=== PATIENT | male | born 1940 | race Caucasian/White ===

== ENCOUNTER 2018-06-23 22:20 | Inpatient (IN) | payer OTHER ==
[2018-06-23 22:59] LABS: Basophils % (A) 1 %; Eosinophils # (A) 0.2 k/uL (0-0.7); Eosinophils % (A) 4 %; HCT 38.6 % (39.0-53.0); Hypochromasia Moderate; Lymphocytes % (A) 20 %; MCH 33.8 pg (25.0-35.0); MCHC 31.1 g/dL (31.0-37.0); MCV 108.4 fL (80.0-100.0); Mean Platelet Volume 7.3; Monocytes # (A) 0.4 k/uL (0-1.0); Monocytes % (A) 7 %; Neutrophils # (A) 3.2 k/uL (1.3-7.7); Neutrophils % (A) 65 %; Platelet Count 178 k/uL (150-450); RBC 3.56 m/uL (4.30-5.90); RDW 15.7 % (11.5-15.5); WBC 4.9 k/uL (3.8-10.6)
[2018-06-23 23:07] LABS: INR 1.1 (<1.2); Prothrombin Time 11.2 sec (9.0-12.0)
[2018-06-23 23:14] LABS: Potassium 5.7 mmol/L (3.5-5.1)
[2018-06-23 23:17] LABS: Albumin 3.9 g/dL (3.5-5.0); Calcium 9.2 mg/dL (8.4-10.2); Macrocytosis Marked; Magnesium 1.7 mg/dL (1.6-2.3); Total Bilirubin 0.4 mg/dL (0.2-1.3); Total Protein 7.3 g/dL (6.3-8.2)
[2018-06-23] MEDS ORDERED: SODIUM CHLORIDE 0.9% 500 ML 500 ML IV ONE (23:18)
[2018-06-23] MEDS ORDERED: SODIUM POLYSTYRENE SULFONATE 15 GM/60 ML BOTTLE PO STA (23:19)
[2018-06-23 23:20] LABS: Creatine Kinase 40 U/L (55-170)
--- NOTE | 2018-06-23 23:24 | ED ---
General Adult HPI - General Chief complaint: Recheck/Abnormal Lab/Rx Stated complaint: Abn labs Time Seen by Provider: 06/23/18 22:38 Source: patient, RN notes reviewed, old records reviewed Mode of arrival: ambulatory Limitations: no limitations - History of Present Illness Initial comments: 77-year-old male presenting with abnormal outpatient lab. Patient was noted to have elevated potassium 6.0. Patient denies any complaints. No chest pain, no dyspnea, no abdominal pain, nausea vomiting diarrhea. No fever chills. No lower extremity edema. Patient has no known history of chronic kidney disease, not on potassium supplementation. Patient denies any change in urination. - Related Data Home Medications Medication Instructions Recorded Confirmed Amiodarone HCl [Pacerone] 200 mg PO DAILY 06/23/18 06/23/18 Aspirin EC [Ecotrin Low Dose] 81 mg PO DAILY 06/23/18 06/23/18 Atorvastatin [Lipitor] 80 mg PO HS 06/23/18 06/23/18 Metoprolol Succinate (ER) [Toprol 50 mg PO BID 06/23/18 06/23/18 Xl] Pantoprazole [Protonix] 40 mg PO DAILY 06/23/18 06/23/18 Tamsulosin HCl [Flomax] 0.4 mg PO DAILY 06/23/18 06/23/18 sitaGLIPtin [Januvia] 50 mg PO DAILY 06/23/18 06/23/18 Allergies Allergy/AdvReac Type Severity Reaction Status Date / Time Penicillins Allergy Swelling Verified 06/23/18 22:50 alprazolam [From Xanax] AdvReac Hallucinati Verified 06/23/18 22:50 ons meperidine [From Demerol] AdvReac Hallucinati Verified 06/23/18 22:50 ons Review of Systems ROS Statement: Those systems with pertinent positive or pertinent negative responses have been documented in the HPI. ROS Other: All systems not noted in ROS Statement are negative. Past Medical History Past Medical History: Coronary Artery Disease (CAD), Diabetes Mellitus, Hyperlipidemia, Hypertension, Prostate Disorder, Pulmonary Embolus (PE) History of Any Multi-Drug Resistant Organisms: None Reported Past Surgical History: Heart Catheterization With Stent Past Psychological History: No Psychological Hx Reported Smoking Status: Never smoker Past Alcohol Use History: None Reported Past Drug Use History: None Reported General Exam Limitations: no limitations General appearance: alert, in no apparent distress Head exam: Present: atraumatic, normocephalic Eye exam: Present: normal appearance, PERRL ENT exam: Present: normal exam Neck exam: Present: normal inspection. Absent: tenderness, meningismus Respiratory exam: Present: normal lung sounds bilaterally. Absent: respiratory distress, wheezes Cardiovascular Exam: Present: regular rate, irregular rhythm GI/Abdominal exam: Present: soft. Absent: distended Extremities exam: Present: normal inspection, normal capillary refill. Absent: calf tenderness Neurological exam: Present: alert, oriented X3 Psychiatric exam: Present: normal affect, normal mood Skin exam: Present: warm, dry, intact. Absent: cyanosis, diaphoretic Course Vital Signs 06/23/18 22:23 Temperature 98.4 F Pulse Rate 66 Respiratory 18 Rate Blood Pressure 207/82 O2 Sat by Pulse 95 Oximetry EKG Findings - EKG Comments: EKG Findings:: EKG: Sinus rhythm, rate of 72, significan PVC ectopy with fusion complex, ND interval 136, QRS duration 92, QTC 462, no ST segment changes Medical Decision Making - Medical Decision Making 77-year-old male presenting with hyperkalemia. Laboratory studies repeated, patient has potassium 5.7, creatinine 1.6 with no known baseline or history of chronic kidney disease. Laboratory studies are within normal limits. Patient does have significant ectopy on EKG. He will be kept in observation for telemetry, IV hydration, and treatment of hyperkalemia. He is given Kayexalate and calcium gluconate in the emergency department. Laboratory studies as well as kidney function will be rechecked in the morning. - Lab Data Result diagrams: 06/23/18 22:42 06/23/18 22:42 Lab Results 06/23/18 06/23/18 06/23/18 Range/Units 22:42 22:42 22:42 WBC 4.9 (3.8-10.6) k/uL RBC 3.56 L (4.30-5.90) m/uL Hgb 12.0 L (13.0-17.5) gm/dL Hct 38.6 L (39.0-53.0) % MCV 108.4 H (80.0-100.0) fL MCH 33.8 (25.0-35.0) pg MCHC 31.1 (31.0-37.0) g/dL RDW 15.7 H (11.5-15.5) % Plt Count 178 (150-450) k/uL Neutrophils % 65 % Lymphocytes % 20 % Monocytes % 7 % Eosinophils % 4 % Basophils % 1 % Neutrophils # 3.2 (1.3-7.7) k/uL Lymphocytes # 1.0 (1.0-4.8) k/uL Monocytes # 0.4 (0-1.0) k/uL Eosinophils # 0.2 (0-0.7) k/uL Basophils # 0.0 (0-0.2) k/uL Manual Slide Review Performed Hypochromasia Moderate Macrocytosis Marked PT (9.0-12.0) sec INR (<1.2) APTT (22.0-30.0) sec Sodium 139 (137-145) mmol/L Potassium 5.7 H (3.5-5.1) mmol/L Chloride 102 (98-107) mmol/L Carbon Dioxide 31 H (22-30) mmol/L Anion Gap 6 mmol/L BUN 15 (9-20) mg/dL Creatinine 1.60 H (0.66-1.25) mg/dL Est GFR (CKD-EPI)AfAm 47 (>60 ml/min/1.73 sqM) Est GFR (CKD-EPI)NonAf 41 (>60 ml/min/1.73 sqM) Glucose 186 H (74-99) mg/dL Calcium 9.2 (8.4-10.2) mg/dL Magnesium 1.7 (1.6-2.3) mg/dL Total Bilirubin 0.4 (0.2-1.3) mg/dL AST 20 (17-59) U/L ALT 23 (21-72) U/L Alkaline Phosphatase 92 (38-126) U/L Total Creatine Kinase 40 L (55-170) U/L CK-MB (CK-2) 0.9 (0.0-2.4) ng/mL CK-MB (CK-2) Rel Index 2.3 Troponin I <0.012 (0.000-0.034) ng/mL Total Protein 7.3 (6.3-8.2) g/dL Albumin 3.9 (3.5-5.0) g/dL 06/23/18 Range/Units 22:42 WBC (3.8-10.6) k/uL RBC (4.30-5.90) m/uL Hgb (13.0-17.5) gm/dL Hct (39.0-53.0) % MCV (80.0-100.0) fL MCH (25.0-35.0) pg MCHC (31.0-37.0) g/dL RDW (11.5-15.5) % Plt Count (150-450) k/uL Neutrophils % % Lymphocytes % % Monocytes % % Eosinophils % % Basophils % % Neutrophils # (1.3-7.7) k/uL Lymphocytes # (1.0-4.8) k/uL Monocytes # (0-1.0) k/uL Eosinophils # (0-0.7) k/uL Basophils # (0-0.2) k/uL Manual Slide Review Hypochromasia Macrocytosis PT 11.2 (9.0-12.0) sec INR 1.1 (<1.2) APTT 29.0 (22.0-30.0) sec Sodium (137-145) mmol/L Potassium (3.5-5.1) mmol/L Chloride (98-107) mmol/L Carbon Dioxide (22-30) mmol/L Anion Gap mmol/L BUN (9-20) mg/dL Creatinine (0.66-1.25) mg/dL Est GFR (CKD-EPI)AfAm (>60 ml/min/1.73 sqM) Est GFR (CKD-EPI)NonAf (>60 ml/min/1.73 sqM) Glucose (74-99) mg/dL Calcium (8.4-10.2) mg/dL Magnesium (1.6-2.3) mg/dL Total Bilirubin (0.2-1.3) mg/dL AST (17-59) U/L ALT (21-72) U/L Alkaline Phosphatase (38-126) U/L Total Creatine Kinase (55-170) U/L CK-MB (CK-2) (0.0-2.4) ng/mL CK-MB (CK-2) Rel Index Troponin I (0.000-0.034) ng/mL Total Protein (6.3-8.2) g/dL Albumin (3.5-5.0) g/dL Disposition Clinical Impression: Hyperkalemia, Acute kidney injury Disposition: ADMITTED IP TO THIS [facility] Condition: Stable Is patient prescribed a controlled substance at d/c from ED?: No Referrals: Casey Brown DO [Primary Care Provider] - 1-2 days Decision to Admit Reason: Admit from EC Decision Date: 06/24/18 Decision Time: 00:05
[2018-06-23] MEDS ORDERED: CALCIUM GLUCONATE 1 GM in SODIUM CHLORIDE 0.9% 100 ML IVPB ONE (23:30)
[2018-06-23 23:33] LABS: Creatine Kinase MB 0.9 ng/mL (0.0-2.4); Troponin I <0.012 ng/mL (0.000-0.034)
[2018-06-23] MEDS: SODIUM CHLORIDE 0.9% 1,000 ML IV SCH (23:43)
[2018-06-23] MEDS ORDERED: ACETAMINOPHEN TAB 325 MG TAB PO PRN (23:59)
[2018-06-23] MEDS ORDERED: NALOXONE 0.4 MG/ML 1 ML VIAL IV PRN (23:59)
[2018-06-24 02:38] VITALS: BMI 28.1
[2018-06-24 06:42] LABS: Glucose,Whole Blood 123 mg/dL (75-99)
[2018-06-24] MEDS: RIVAROXABAN 15 MG TAB PO SCH ×2 (07:56→17:16)
[2018-06-24] MEDS: AMIODARONE 200 MG TAB PO SCH (07:56)
[2018-06-24] MEDS: METOPROLOL SUCCINATE (ER) 50 MG TAB.ER.24H PO SCH ×2 (07:56→21:30)
[2018-06-24 11:10] LABS: Basophils % (A) 0 %; Eosinophils # (A) 0.2 k/uL (0-0.7); Eosinophils % (A) 4 %; HCT 37.4 % (39.0-53.0); HGB 11.5 gm/dL (13.0-17.5); Hypochromasia Marked; Lymphocytes # (A) 0.9 k/uL (1.0-4.8); Lymphocytes % (A) 20 %; MCH 33.7 pg (25.0-35.0); MCHC 30.7 g/dL (31.0-37.0); MCV 109.7 fL (80.0-100.0); Macrocytosis Marked; Mean Platelet Volume 6.7; Monocytes # (A) 0.3 k/uL (0-1.0); Monocytes % (A) 7 %; Neutrophils # (A) 2.8 k/uL (1.3-7.7); Neutrophils % (A) 65 %; Platelet Count 144 k/uL (150-450); RBC 3.41 m/uL (4.30-5.90); RDW 15.8 % (11.5-15.5); WBC 4.3 k/uL (3.8-10.6)
[2018-06-24 11:18] LABS: Calcium 8.8 mg/dL (8.4-10.2)
[2018-06-24 11:45] LABS: Potassium 6.2 mmol/L (3.5-5.1)
[2018-06-24 11:50] LABS: Glucose,Whole Blood 146 mg/dL (75-99)
[2018-06-24] MEDS ORDERED: SODIUM POLYSTYRENE SULFONATE 15 GM/60 ML BOTTLE PO STA (12:24)
[2018-06-24] MEDS ORDERED: SODIUM BICARB 8.4% 50 ML VIAL (1 MEQ/ML) IV STA (12:26)
[2018-06-24] MEDS ORDERED: CALCIUM GLUCONATE 1 GM in SODIUM CHLORIDE 0.9% 100 ML IVPB ONE (12:27)
[2018-06-24] MEDS ORDERED: INSULIN REGULAR 100 UNIT/ML VIAL IV ONE (12:28)
[2018-06-24] MEDS ORDERED: ALBUTEROL NEBULIZED 2.5 MG/3 ML INHALATION STA (12:29)
[2018-06-24] MEDS ORDERED: DEXTROSE 50%-WATER 50 ML SYRINGE IVP STA (12:31)
[2018-06-24 13:26] LABS: Hemoglobin A1C 7.4 % (4.0-6.0)
--- NOTE | 2018-06-24 13:43 | P.HPIM ---
History of Present Illness This is a pleasant 77 years old male with past medical history of coronary artery disease, status post cardiac cath, diabetes mellitus, hyperlipidemia, hypertension, pulmonary embolism on xarelto. He was here for abnormal lab with high potassium, patient went to the [facility] to take his prescription because is cheaper for him, they checked a routine labs for him and benignly Called about high potassium and ask him to come to emergency room. And at presentation his potassium was 5.7, and change. From this morning was 6.2. On admission also his creatinine 1.6 and the rest morning is 1.59. Sugars looks stable. Liver enzymes are unremarkable CBC unremarkable, sodium within normal limits. EKG showing sinus rhythm with PVCs at a rate of 72 BPM. QTC is 464 . I called the office and Dr. Brown his pcp was not available and attempt his nurse practitioner who told me in May his creatinine was 1.2, no documented kidney disease by his PCP office Patient denies chest pain, no dyspnea, no palpitation or dizziness, no syncope, no change in urine or bowel habits. No urinary difficulties or hesitancy or dysuria. No urinary urgency. No history of kidney disease. No fever at Emergency room patient received IV fluids, 1 L. And 30 g of Kayexalate, also patient was started on 75 mL/h of normal saline. Review of Systems CONSTITUTIONAL: No fever, no malaise, no fatigue. HEENT: No recent visual problems or hearing problems. Denied any sore throat. CARDIOVASCULAR: No orthopnea, PND, no palpitations, no syncope. PULMONARY: No shortness of breath, no cough, no hemoptysis. GASTROINTESTINAL: No diarrhea, no nausea, no vomiting, no abdominal pain. Normoactive bowel sounds. NEUROLOGICAL: No headaches, no weakness, no numbness. HEMATOLOGICAL: Denies any bleeding or petechiae. GENITOURINARY: Denies any burning micturition, frequency, or urgency. MUSCULOSKELETAL/RHEUMATOLOGICAL: Denies any joint pain, swelling, or any muscle pain. ENDOCRINE: Denies any polyuria or polydipsia. Past Medical History Past Medical History: Coronary Artery Disease (CAD), Diabetes Mellitus, Hyperlipidemia, Hypertension, Prostate Disorder, Pulmonary Embolus (PE) History of Any Multi-Drug Resistant Organisms: None Reported Past Surgical History: Heart Catheterization With Stent Past Anesthesia/Blood Transfusion Reactions: No Reported Reaction Date of Last Stent Placement:: 05/05/18 Past Psychological History: No Psychological Hx Reported Smoking Status: Never smoker Past Alcohol Use History: None Reported Past Drug Use History: None Reported - Past Family History Mother Family Medical History: No Reported History Father Family Medical History: No Reported History Medications and Allergies Home Medications Medication Instructions Recorded Confirmed Type Amiodarone HCl [Pacerone] 200 mg PO DAILY 06/23/18 06/23/18 History Aspirin EC [Ecotrin Low Dose] 81 mg PO DAILY 06/23/18 06/23/18 History Atorvastatin [Lipitor] 80 mg PO HS 06/23/18 06/23/18 History Metoprolol Succinate (ER) [Toprol 50 mg PO BID 06/23/18 06/23/18 History Xl] Pantoprazole [Protonix] 40 mg PO DAILY 06/23/18 06/23/18 History Tamsulosin HCl [Flomax] 0.4 mg PO DAILY 06/23/18 06/23/18 History sitaGLIPtin [Januvia] 50 mg PO DAILY 06/23/18 06/23/18 History Allergies Allergy/AdvReac Type Severity Reaction Status Date / Time Penicillins Allergy Swelling Verified 06/23/18 22:50 alprazolam [From Xanax] AdvReac Hallucinati Verified 06/23/18 22:50 ons meperidine [From Demerol] AdvReac Hallucinati Verified 06/23/18 22:50 ons Physical Exam Vitals: Vital Signs Temp Pulse Pulse Resp BP BP BP 06/24/18 11:58 60 18 06/24/18 11:32 97.5 F L 60 18 154/78 06/24/18 08:00 57 L 18 06/24/18 07:42 06/24/18 07:05 97.8 F 57 L 18 142/76 06/24/18 03:41 98.2 F 54 L 18 120/62 06/24/18 02:00 63 18 06/24/18 01:50 97.7 F 59 L 18 176/79 06/24/18 01:36 62 20 155/76 06/24/18 00:35 67 20 150/82 06/24/18 00:32 18 06/23/18 23:28 98.0 F 77 16 172/92 06/23/18 22:23 98.4 F 66 18 207/82 Pulse Ox 06/24/18 11:58 06/24/18 11:32 95 06/24/18 08:00 06/24/18 07:42 96 06/24/18 07:05 92 L 06/24/18 03:41 96 06/24/18 02:00 06/24/18 01:50 93 L 06/24/18 01:36 95 06/24/18 00:35 93 L 06/24/18 00:32 06/23/18 23:28 97 06/23/18 22:23 95 Intake and Output 06/23/18 06/24/18 06/24/18 22:59 06:59 14:59 Intake Total 440 Output Total 2 Balance -2 440 Intake: Oral 440 Output: Urine 1 Stool 1 Other: Voiding Method Toilet Toilet Weight 83.96 kg GENERAL: The patient is alert and oriented x3, not in any acute distress. Well developed, well nourished. HEENT: Pupils are round and equally reacting to light. EOMI. No scleral icterus. No conjunctival pallor. Normocephalic, atraumatic. No pharyngeal erythema. No thyromegaly. CARDIOVASCULAR: S1 and S2 present. No murmurs, rubs, or gallops. PULMONARY: Chest is clear to auscultation, no wheezing or crackles. ABDOMEN: Soft, nontender, nondistended, normoactive bowel sounds. No palpable organomegaly. MUSCULOSKELETAL: No joint swelling or deformity. EXTREMITIES: No cyanosis, clubbing, or pedal edema. NEUROLOGICAL: Gross neurological examination did not reveal any focal deficits. SKIN: No rashes. Results CBC & Chem 7: 06/24/18 10:50 06/24/18 10:50 Labs: Abnormal Lab Results - Last 24 Hours (Table) 06/23/18 06/23/18 06/23/18 Range/Units 22:42 22:42 22:42 RBC 3.56 L (4.30-5.90) m/uL Hgb 12.0 L (13.0-17.5) gm/dL Hct 38.6 L (39.0-53.0) % MCV 108.4 H (80.0-100.0) fL MCHC (31.0-37.0) g/dL RDW 15.7 H (11.5-15.5) % Plt Count (150-450) k/uL Lymphocytes # (1.0-4.8) k/uL Potassium 5.7 H (3.5-5.1) mmol/L Carbon Dioxide 31 H (22-30) mmol/L Creatinine 1.60 H (0.66-1.25) mg/dL Glucose 186 H (74-99) mg/dL POC Glucose (mg/dL) (75-99) mg/dL Total Creatine Kinase 40 L (55-170) U/L 06/24/18 06/24/18 06/24/18 Range/Units 06:40 10:50 10:50 RBC 3.41 L (4.30-5.90) m/uL Hgb 11.5 L (13.0-17.5) gm/dL Hct 37.4 L (39.0-53.0) % MCV 109.7 H (80.0-100.0) fL MCHC 30.7 L (31.0-37.0) g/dL RDW 15.8 H (11.5-15.5) % Plt Count 144 L (150-450) k/uL Lymphocytes # 0.9 L (1.0-4.8) k/uL Potassium 6.2 H* (3.5-5.1) mmol/L Carbon Dioxide 34 H (22-30) mmol/L Creatinine 1.59 H (0.66-1.25) mg/dL Glucose 169 H (74-99) mg/dL POC Glucose (mg/dL) 123 H (75-99) mg/dL Total Creatine Kinase (55-170) U/L 06/24/18 Range/Units 11:47 RBC (4.30-5.90) m/uL Hgb (13.0-17.5) gm/dL Hct (39.0-53.0) % MCV (80.0-100.0) fL MCHC (31.0-37.0) g/dL RDW (11.5-15.5) % Plt Count (150-450) k/uL Lymphocytes # (1.0-4.8) k/uL Potassium (3.5-5.1) mmol/L Carbon Dioxide (22-30) mmol/L Creatinine (0.66-1.25) mg/dL Glucose (74-99) mg/dL POC Glucose (mg/dL) 146 H (75-99) mg/dL Total Creatine Kinase (55-170) U/L Thrombosis Risk Factor Assmnt - Choose All That Apply Other Risk Factors: No Each Risk Factor Represents 3 Points: Age 75 years or older Other congenital or acquired thrombophilia - If yes, enter type in comment: No Thrombosis Risk Factor Assessment Total Risk Factor Score: 3 Thrombosis Risk Factor Assessment Level: Moderate Risk Assessment and Plan Assessment: Acute hyperkalemia Acute kidney injury with creatinine 1.6, compared to baseline 1.2 History of PE, on anticoagulation Hyperlipidemia Plan: This is a pleasant 77 years old male who presents because of acute kidney injury and hyperkalemia, continue with IV fluids, give Kayexalate. Check potassium and we'll check for retroperitoneal ultrasound. Labs and medication were reviewed.. Continue same treatment. Continue with symptomatic treatment. Resume home medication. Monitor lytes and vitals. DVT and GI prophylaxis. Further recommendations of the clinical course of the patient DVT prophylaxis: xarelto GI Prophylaxis: Pepcid
[2018-06-24] MEDS: SODIUM CHLORIDE 0.9% 1,000 ML IV SCH (14:07)
--- NOTE | 2018-06-24 14:42 | US ---
EXAMINATION TYPE: US kidneys/renal and bladder DATE OF EXAM: 06/24/2018 COMPARISON: NONE CLINICAL HISTORY: acute renal injury. abn labs, no pain EXAM MEASUREMENTS: Right Kidney: 11.1 x 6.1 x 6.1 cm Left Kidney: 11.3 x 4.9 x 5.0 cm Right Kidney: Multiple cystic appearing lesions seen with largest measured. Lower= 7.5 x 7.2 x 6.5 cm . Lower medial - 4.6 x 4.3 x 3.5 cm. Lower echogenic focus in lower pole with slight shadow - 0.6 c m. Left Kidney: Multiple cystic appearing lesions seen with largest measured. Upper pole = 5.6 x 5.8 x 5 .8 cm. Bladder: wnl Right jet seen IMPRESSION: 1. Multiple bilateral simple appearing renal cysts. The largest at the inferior pole right kidney me asures 7 cm.
[2018-06-24] MEDS: FAMOTIDINE 20 MG/2 ML VIAL IV SCH (15:26)
[2018-06-24 16:34] LABS: Glucose,Whole Blood 110 mg/dL (75-99)
[2018-06-24] MEDS ORDERED: ATORVASTATIN 80 MG TAB PO SCH (21:00)
[2018-06-24] MEDS ORDERED: FAMOTIDINE 20 MG/2 ML VIAL IV SCH (21:00)
[2018-06-25] MEDS: SODIUM CHLORIDE 0.9% 1,000 ML IV SCH (02:33)
[2018-06-25 07:49] LABS: Albumin 3.6 g/dL (3.5-5.0); Calcium 9.1 mg/dL (8.4-10.2); Magnesium 1.4 mg/dL (1.6-2.3); Phosphorus 3.2 mg/dL (2.5-4.5); Potassium 4.7 mmol/L (3.5-5.1); Total Bilirubin 0.6 mg/dL (0.2-1.3); Total Protein 6.7 g/dL (6.3-8.2)
[2018-06-25 08:17] VITALS: BP 174/81; PULSE 92; RESP 16; TEMP 98.3
[2018-06-25] MEDS: FAMOTIDINE 20 MG/2 ML VIAL IV SCH (08:17)
[2018-06-25] MEDS: AMIODARONE 200 MG TAB PO SCH (08:17)
[2018-06-25] MEDS: METOPROLOL SUCCINATE (ER) 50 MG TAB.ER.24H PO SCH (08:17)
[2018-06-25] MEDS: RIVAROXABAN 15 MG TAB PO SCH (08:17)
[2018-06-25 08:35] LABS: Anisocytosis Slight; Basophils % (A) 0 %; Eosinophils # (A) 0.1 k/uL (0-0.7); Eosinophils % (A) 3 %; HCT 39.5 % (39.0-53.0); HGB 12.2 gm/dL (13.0-17.5); Hypochromasia Moderate; Lymphocytes # (A) 0.8 k/uL (1.0-4.8); Lymphocytes % (A) 17 %; MCH 33.5 pg (25.0-35.0); MCHC 30.9 g/dL (31.0-37.0); MCV 108.3 fL (80.0-100.0); Macrocytosis Marked; Mean Platelet Volume 7.6; Monocytes # (A) 0.3 k/uL (0-1.0); Monocytes % (A) 7 %; Neutrophils # (A) 3.1 k/uL (1.3-7.7); Neutrophils % (A) 70 %; Platelet Count 158 k/uL (150-450); RBC 3.65 m/uL (4.30-5.90); RDW 16.1 % (11.5-15.5); WBC 4.4 k/uL (3.8-10.6)
--- NOTE | 2018-06-25 10:53 | P.DS ---
Providers Date of admission: 06/24/18 13:12 Attending physician: Magdalena Wallace Primary care physician: [facility] Course: Acute hyperkalemia, resolved Acute kidney injury with creatinine 1.6, compared to baseline 1.2, back to baseline hypomagnesemia , replaced History of PE, on anticoagulation Hyperlipidemia course hospital: This is a pleasant 77 years old male with past medical history of coronary artery disease, status post cardiac cath, diabetes mellitus, hyperlipidemia, hypertension, pulmonary embolism on xarelto. He was here for abnormal lab with high potassium, patient went to the [facility] to take his prescription because is cheaper for him, they checked a routine labs for him and benignly Called about high potassium and ask him to come to emergency room. And at presentation his potassium was 5.7, and change. From this morning was 6.2. On admission also his creatinine 1.6 . As per his doctor's office his baseline creatinine is 1.2. Patient was provided with IV fluids and Kayexalate was given. On the day of discharge his creatinine came back to baseline at 1.26, and potassium checked it twice and last one was 4.7. Patient remains asymptomatic, low magnesium is being replaced. renal ultrasound: Multiple cysts on both kidneys. Patient states that he has an appointment with his visiting nurse tomorrow at 10: 00 in the morning and thus close to his PCP office and he is willing to go see his PCP. Problems and management plan were discussed with the patient and he verbalized understanding and acceptance Patient was found stable and can be discharged home however he needs follow-up as an outpatient. Patient was instructed to follow up with his PCP in one week. Patient said he can go see his PCP tomorrow during his cardiology appointment after 10:00. Patient also was instructed to follow up with nephrology and urology. Patient does not want medical staff make appointments for him and he wants to talk to his doctor before referring him to these offices. Contact information was provided to the patient upon his request. Patient instructed to get a copy of his renal ultrasound from medical records, upon his request. And that to take it to his PCP upon discharge and he agrees. physical examination Gen: patient is a AAOx3, no distress CVS: S1-S2, RRR, no murmur Lungs: B/L CTA, no wheezing Abdomen: soft, no distention, no tenderness, positive bowel sounds Extremity: no leg edema or induration Time spent more than 35 minutes Patient Condition at Discharge: Stable Plan - Discharge Summary Discharge Rx Participant: Yes New Discharge Prescriptions: New Rivaroxaban [Xarelto] 15 mg PO BID-W/MEALS tab Magnesium Oxide [Mag-Ox] 400 mg PO DAILY #3 tablet Continue sitaGLIPtin [Januvia] 50 mg PO DAILY Metoprolol Succinate (ER) [Toprol XL] 50 mg PO BID Atorvastatin [Lipitor] 80 mg PO HS Amiodarone HCl [Pacerone] 200 mg PO DAILY Tamsulosin HCl [Flomax] 0.4 mg PO DAILY Pantoprazole [Protonix] 40 mg PO DAILY Aspirin EC [Ecotrin Low Dose] 81 mg PO DAILY Discharge Medication List Amiodarone HCl [Pacerone] 200 mg PO DAILY 06/23/18 [History] Aspirin EC [Ecotrin Low Dose] 81 mg PO DAILY 06/23/18 [History] Atorvastatin [Lipitor] 80 mg PO HS 06/23/18 [History] Metoprolol Succinate (ER) [Toprol XL] 50 mg PO BID 06/23/18 [History] Pantoprazole [Protonix] 40 mg PO DAILY 06/23/18 [History] Tamsulosin HCl [Flomax] 0.4 mg PO DAILY 06/23/18 [History] sitaGLIPtin [Januvia] 50 mg PO DAILY 06/23/18 [History] Magnesium Oxide [Mag-Ox] 400 mg PO DAILY #3 tablet 06/25/18 [Rx] Rivaroxaban [Xarelto] 15 mg PO BID-W/MEALS tab 06/25/18 [Rx] Follow up Appointment(s)/Referral(s): Humaira Galindo MD [STAFF PHYSICIAN] - 1 Week Casey Brown DO [Primary Care Provider] - 1-2 days (pref in afternoon) Thiago Randall MD [STAFF PHYSICIAN] - 1 Week Patient Instructions/Handouts: Hyperkalemia (DC) Activity/Diet/Wound Care/Special Instructions: renal diet encourage oral hydration activity is limited till you see your doctor Discharge Disposition: HOME SELF-CARE
[2018-06-25] MEDS: MAGNESIUM SULFATE-D5W PMX 1 GM in DEXTROSE/WATER 1 100ML.BAG IVPB SCH ×2 (11:03→12:05)
== END 2018-06-25 14:08 | disposition home or self-care (01) | DRG 641 ==
LOC: EC 22:20 → 1SOBS 23:59 → OBSVTOIN 06-24 13:12 → 4SSUR 06-24 19:44
PROVIDERS: ADMIT Internal Medicine; ATTEND Internal Medicine
DX: E87.5 Hyperkalemia (principal); N17.9 Acute kidney failure, unspecified; E83.42 Hypomagnesemia; E11.9 Type 2 diabetes mellitus without complications; I10 Essential (primary) hypertension; I49.3 Ventricular premature depolarization; I25.10 Atherosclerotic heart disease of native coronary artery without angina pectoris; N42.9 Disorder of prostate, unspecified; E78.5 Hyperlipidemia, unspecified; Z79.82 Long term (current) use of aspirin; Z79.84 Long term (current) use of oral hypoglycemic drugs; Z79.899 Other long term (current) drug therapy; Z86.711 Personal history of pulmonary embolism; Z95.5 Presence of coronary angioplasty implant and graft; Z88.5 Allergy status to narcotic agent; Z88.0 Allergy status to penicillin; Z88.8 Allergy status to other drugs, medicaments and biological substances
CPT/HCPCS: 36415; 76770; 80048; 80053; 82550; 82553; 83036; 83735; 84100; 84132; 84484; 85025; 85610; 85730; 93005; 94640; 96361; 96365; 99284

== ENCOUNTER 2018-07-16 10:25 | Emergency (ER) | payer MEDICARE, OTHER ==
[2018-07-16 10:33] VITALS: TEMP 97
[2018-07-16] MEDS ORDERED: ONDANSETRON 4 MG/2 ML VIAL IVP STA (10:57)
[2018-07-16] MEDS ORDERED: MORPHINE SULFATE 4 MG/ML SYRINGE IVP STA (10:57)
--- NOTE | 2018-07-16 10:59 | ED ---
General Adult HPI - General Chief complaint: Extremity Problem,Nontraumatic Stated complaint: sciatic pain Time Seen by Provider: 07/16/18 10:30 Source: patient, EMS, RN notes reviewed, old records reviewed Mode of arrival: EMS Limitations: physical limitation - History of Present Illness Initial comments: Patient is a 77-year-old presents emergency department today with chief complaint of 5 days of lower back pain radiating down the right leg. Patient reports he's had a history of sciatica. Patient states that he has had no recent falls or trauma. Patient reports that he's had no nausea or vomiting, abdominal pain dysuria or hematuria. He denies any saddle anesthesias. - Related Data Home Medications Medication Instructions Recorded Confirmed Amiodarone HCl [Pacerone] 200 mg PO DAILY 06/23/18 06/23/18 Aspirin EC [Ecotrin Low Dose] 81 mg PO DAILY 06/23/18 06/23/18 Atorvastatin [Lipitor] 80 mg PO HS 06/23/18 06/23/18 Metoprolol Succinate (ER) [Toprol 50 mg PO BID 06/23/18 06/23/18 XL] Pantoprazole [Protonix] 40 mg PO DAILY 06/23/18 06/23/18 Tamsulosin HCl [Flomax] 0.4 mg PO DAILY 06/23/18 06/23/18 sitaGLIPtin [Januvia] 50 mg PO DAILY 06/23/18 06/23/18 Previous Rx's Medication Instructions Recorded Magnesium Oxide [Mag-Ox] 400 mg PO DAILY #3 tablet 06/25/18 Rivaroxaban [Xarelto] 15 mg PO BID-W/MEALS tab 06/25/18 Cyclobenzaprine [Flexeril] 10 mg PO TID #20 tab 07/16/18 Dexamethasone 0.75 mg PO DAILY #12 tab 07/16/18 HYDROcodone/APAP 5-325MG [Iraan 2 tab PO Q6HR PRN 3 Days #24 tab 07/16/18 5-325] Allergies Allergy/AdvReac Type Severity Reaction Status Date / Time Penicillins Allergy Swelling Verified 07/16/18 10:49 alprazolam [From Xanax] AdvReac Hallucinati Verified 07/16/18 10:49 ons meperidine [From Demerol] AdvReac Hallucinati Verified 03/14/19 10:49 ons Review of Systems ROS Statement: Those systems with pertinent positive or pertinent negative responses have been documented in the HPI. ROS Other: All systems not noted in ROS Statement are negative. Past Medical History Past Medical History: Coronary Artery Disease (CAD), Diabetes Mellitus, Hyperlipidemia, Hypertension, Prostate Disorder, Pulmonary Embolus (PE) History of Any Multi-Drug Resistant Organisms: None Reported Past Surgical History: Heart Catheterization Past Anesthesia/Blood Transfusion Reactions: No Reported Reaction Date of Last Stent Placement:: 05/05/18 Past Psychological History: No Psychological Hx Reported Smoking Status: Former smoker Past Alcohol Use History: None Reported Past Drug Use History: None Reported - Past Family History Mother Family Medical History: No Reported History Father Family Medical History: No Reported History General Exam - General Exam Comments Initial Comments: This is a 77-year-old male. Alert and oriented 3. No significant distress. Limitations: physical limitation General appearance: alert, in no apparent distress Head exam: Present: atraumatic, normocephalic, normal inspection Eye exam: Present: normal appearance, PERRL, EOMI. Absent: scleral icterus, conjunctival injection, periorbital swelling ENT exam: Present: normal exam, mucous membranes moist Neck exam: Present: normal inspection. Absent: tenderness, meningismus, l ymphadenopathy Respiratory exam: Present: normal lung sounds bilaterally. Absent: respiratory distress, wheezes, rales, rhonchi, stridor Cardiovascular Exam: Present: regular rate, normal rhythm, normal heart sounds. Absent: systolic murmur, diastolic murmur, rubs, gallop, clicks GI/Abdominal exam: Present: soft, normal bowel sounds. Absent: distended, tenderness, guarding, rebound, rigid Extremities exam: Present: normal inspection, full ROM, normal capillary refill. Absent: tenderness, pedal edema, joint swelling, calf tenderness Back exam: Present: normal inspection, vertebral tenderness (Lumbar vertebral tenderness and right sciatic notch tenderness) Neurological exam: Present: alert, oriented X3, CN II-XII intact Course Vital Signs 07/16/18 07/16/18 10:28 12:17 Temperature 97 F L Pulse Rate 73 72 Respiratory 18 16 Rate Blood Pressure 195/99 169/97 O2 Sat by Pulse 91 L 92 L Oximetry - Reevaluation(s) Reevaluation #1: 07/16/18 13:49 Patient ambulated with assistance around the room down the hallway. Patient family informed that is able to ambulate that we can discharge him with pain medication. They're grouped treatment plan. Medical Decision Making - Medical Decision Making This is a 77-year-old male presents emergency room today for right-sided back pain rating down leg. He reports symptoms have been for 5 days. He is here with his son. The son states he has been having difficulty with ambulation. Patient was given by mouth Flexeril by mouth Iraan. Patient was given IV Toradol EMS route. This time he has some lumbar spinal tenderness area and CT of the pelvis and lumbar spine were completed. There is moderate disc disease noted disc bulge at L4-L5 and L3-L4. I discussed that there is some foraminal narrowing consistent with his sciatic nerve pain. He has no saddle anesthesias and no abdominal pain. Patient was ambulated with assistance. I discussed falling up with career development specialist and will discharge Patient with a course of pain medication. All questions were answered and return parameters were discussed. - Radiology Data Radiology results: report reviewed Hypertrophic facet arthropathy and multilevel mild to moderate degenerative disc disease. Trace grade anterolisthesis at L4-L5. Accommodation is a changes L4- L5 including ALLERGIC to spelled causes at least moderate spinal skin canal stenosis. Possibly moderate to severe and moderate right sided neural foraminal stenosis at this level. L3-L4 there is moderate spinal canal stenosis. There is multiple bilateral renal cysts 1 of the lesions in the left kidney measures 1.5 cm. This shows intermediate attenuation. This could represent a comprehensive. Nonemergent follow-up renal mass protocol CT recommended to exclude a solid mass. Disposition Clinical Impression: Sciatica, right side, DDD (degenerative disc disease), lumbar, L4-L5 disc bulge Disposition: HOME SELF-CARE Condition: Good Instructions (If sedation given, give patient instructions): Sciatica (ED), Lumbar Radiculopathy (ED) Additional Instructions: Patient advised to have close follow-up with career development specialist. Take pain medication and use anti-inflammatory medicine and muscle relaxers as prescribed. Return to the emergency department if any alarming signs or symptoms occur. Patient should apply warm compresses over the back and leg. Prescriptions: Dexamethasone 0.75 mg PO DAILY #12 tab Cyclobenzaprine [Flexeril] 10 mg PO TID #20 tab HYDROcodone/APAP 5-325MG [Iraan 5-325] 2 tab PO Q6HR PRN 3 Days #24 tab PRN Reason: Pain Is patient prescribed a controlled substance at d/c from ED?: Yes When asked, does pt state using other controlled substances?: No If prescribed controlled substance>3 days was MAPS reviewed?: Prescribed <3 Days If opioid is for acute pain is fill amount 7 days or less?: Yes If Rx opioid, was Start Talking consent form obtained?: Yes Referrals: Casey Brown DO [Primary Care Provider] - 1-2 days Nando Sarmiento DO [Doctor of Osteopathic Medicine] - 1-2 days Time of Disposition: 13:45
[2018-07-16] MEDS ORDERED: CYCLOBENZAPRINE 10 MG TAB PO STA (11:09)
[2018-07-16] MEDS ORDERED: HYDROcodone/APAP 10-325MG 1 EACH TAB PO ONE (12:15)
[2018-07-16 12:18] VITALS: RESP 16
--- NOTE | 2018-07-16 12:28 | CT ---
EXAMINATION TYPE: CT lumbar spine wo con DATE OF EXAM: 07/16/2018 COMPARISON: None HISTORY: 77-year-old male with sciatic pain TECHNIQUE: Contiguous axial scanning of the lumbar spine without IV contrast. Coronal and sagittal re constructions performed. CT DLP: 896.5 mGycm Automated exposure control for dose reduction was used. FINDINGS: Multiple renal cysts are demonstrated, not adequately characterized on this lumbar spine exam. One sh ows intermediate attenuation in the left kidney measuring approximately 1.5 cm. Nonemergent follow-up CT recommended to exclude a solid lesion. Endovascular stent graft of the upper to mid abdominal aorta. Degenerative changes at the SI joints. Hypertrophic facet arthropathy mid to lower lumbar spine with mild multilevel degenerative disc disea se. Trace grade 1 anterolisthesis at L4-L5. At L4-L5, there is hypertrophic facet arthropathy with trace grade 1 anterolisthesis and diffuse disc bulge. There is at least a moderate, possibly moderate to severe spinal canal stenosis. At L3-L4, diffuse disc bulge contributes to a possible moderate canal stenosis. On the left, multilevel mild neural foraminal stenoses are present, more mild to moderate at L3-L4. On the right, there is moderate neural foraminal stenosis at L4-L5 and mild at additional levels. IMPRESSION: 1. HYPERTROPHIC FACET ARTHROPATHY AND MULTILEVEL [id number] DEGENERATIVE DISC DISEASE. 2. TRACE GRADE 1 ANTEROLISTHESIS AT L4-L5. 3. COMBINATION OF CHANGES AT L4-L5 INCLUDING A LARGE DISC BULGE CAUSES AT LEAST A MODERATE SPINAL CAN AL STENOSIS, POSSIBLY MODERATE TO SEVERE. MODERATE RIGHT NEUROFORAMINAL STENOSIS AT THIS LEVEL. 4. AT L3-L4, THERE MAY BE A MODERATE SPINAL CANAL STENOSIS. 5. MULTIPLE BILATERAL RENAL CYSTS. ONE OF THE LESIONS IN THE LEFT KIDNEY MEASURES 1.5 CM AND SHOWS IN TERMEDIATE ATTENUATION. THIS COULD REPRESENT A COMPLICATED CYST. NONEMERGENT FOLLOW-UP RENAL MASS PRO TOCOL CT RECOMMENDED TO EXCLUDE A SOLID MASS.
[2018-07-16] MEDS ORDERED: DEXAMETHASONE SOD PHOSPHATE 10 MG/ML 1 ML VIAL IV STA (13:31)
[2018-07-16 13:58] VITALS: BP 176/86; PULSE 78
== END 2018-07-16 13:58 | disposition home or self-care (01) ==
LOC: EC 10:25
DX: M51.16 Intervertebral disc disorders with radiculopathy, lumbar region (principal); M43.16 Spondylolisthesis, lumbar region; M48.061 Spinal stenosis, lumbar region without neurogenic claudication; N28.1 Cyst of kidney, acquired; I25.10 Atherosclerotic heart disease of native coronary artery without angina pectoris; E11.9 Type 2 diabetes mellitus without complications; E78.5 Hyperlipidemia, unspecified; I10 Essential (primary) hypertension; N42.9 Disorder of prostate, unspecified; Z87.891 Personal history of nicotine dependence; Z88.0 Allergy status to penicillin; Z88.5 Allergy status to narcotic agent; Z88.8 Allergy status to other drugs, medicaments and biological substances; Z79.82 Long term (current) use of aspirin; Z79.84 Long term (current) use of oral hypoglycemic drugs; Z79.899 Other long term (current) drug therapy; Z53.8 Procedure and treatment not carried out for other reasons; Z86.711 Personal history of pulmonary embolism
CPT/HCPCS: 72131; 99284

== ENCOUNTER 2019-02-26 13:00 | Emergency (ER) | payer MEDICARE, OTHER ==
[2019-02-26 13:12] VITALS: RESP 20
--- NOTE | 2019-02-26 13:57 | XR ---
EXAMINATION TYPE: XR chest 2V DATE OF EXAM: 02/26/2019 COMPARISON: Outside chest CT October 29, 2017 HISTORY: Difficulty in breathing. TECHNIQUE: Frontal and lateral views of the chest are obtained. FINDINGS: Overlying EKG leads are seen. There is chronic parenchymal changes bilaterally without sofia picious focal air space opacity, pleural effusion, or pneumothorax seen. The cardiac silhouette size is upper limits of normal. There is partial visualization of stent graft in the abdominal aorta. Th e osseous structures are intact. IMPRESSION: Chronic changes without acute pulmonary process.
[2019-02-26 13:58] LABS: Basophils # (A) 0.1 k/uL (0-0.2); Basophils % (A) 2 %; Eosinophils # (A) 0.1 k/uL (0-0.7); Eosinophils % (A) 1 %; HCT 40.3 % (39.0-53.0); HGB 13.3 gm/dL (13.0-17.5); Lymphocytes # (A) 0.7 k/uL (1.0-4.8); Lymphocytes % (A) 12 %; MCH 34.9 pg (25.0-35.0); MCHC 32.9 g/dL (31.0-37.0); MCV 106.2 fL (80.0-100.0); Macrocytosis Moderate; Mean Platelet Volume 6.3; Monocytes # (A) 0.5 k/uL (0-1.0); Monocytes % (A) 8 %; Neutrophils # (A) 4.7 k/uL (1.3-7.7); Neutrophils % (A) 75 %; Platelet Count 174 k/uL (150-450); RBC 3.79 m/uL (4.30-5.90); RDW 13.3 % (11.5-15.5); WBC 6.2 k/uL (3.8-10.6)
[2019-02-26 14:07] LABS: Albumin 3.9 g/dL (3.5-5.0); Magnesium 1.7 mg/dL (1.6-2.3); Potassium 4.5 mmol/L (3.5-5.1); Total Bilirubin 0.5 mg/dL (0.2-1.3); Total Protein 6.9 g/dL (6.3-8.2)
[2019-02-26 14:21] LABS: INR 1.1 (<1.2); Partial Thromboplastin Time 31.9 sec (22.0-30.0); Prothrombin Time 11.9 sec (9.0-12.0)
[2019-02-26 14:28] LABS: D-Dimer 0.79 mg/L FEU (<0.60)
--- NOTE | 2019-02-26 14:40 | ED ---
General Adult HPI - General Chief complaint: Shortness of Breath Stated complaint: dizzy, SOB Time Seen by Provider: 02/26/19 13:24 Source: patient Mode of arrival: wheelchair Limitations: no limitations - History of Present Illness Initial comments: Patient is a 78-year-old male with history of COPD and PVD is presenting to the emergency room with a chief complaint of shortness of breath. Patient reports over the last few days he's developed increased generalized weakness along with increasing shortness of breath. Patient reports typically at home he uses 2 L of oxygen per nasal cannula. Patient reports his baseline oxygen saturation varies between 80-90%. Patient reports that he woke up this morning he was in the mid 70s. Patient reports yesterday he developed a dull left-sided chest pain that has since resolved. Patient is currently taking Xeralto. Patient also reports feeling lightheaded this morning which has gradually decreased her it is still present. Patient denies any nausea or vomiting, headaches or blurry vision at this time. - Related Data Home Medications Medication Instructions Recorded Confirmed Amiodarone HCl [Pacerone] 200 mg PO DAILY 06/23/18 02/26/19 Aspirin EC [Ecotrin Low Dose] 81 mg PO DAILY 06/23/18 02/26/19 Atorvastatin [Lipitor] 80 mg PO HS 06/23/18 02/26/19 Metoprolol Succinate (ER) [Toprol 50 mg PO BID 06/23/18 02/26/19 XL] Pantoprazole [Protonix] 40 mg PO DAILY 06/23/18 02/26/19 Tamsulosin HCl [Flomax] 0.4 mg PO DAILY 06/23/18 02/26/19 Insulin Glargine [Lantus] 15 unit SQ DAILY 02/26/19 02/26/19 Meloxicam 7.5 mg PO BID 02/26/19 02/26/19 NIFEdipine [Adalat cc] 30 mg PO DAILY 02/26/19 02/26/19 Rivaroxaban [Xarelto] 20 mg PO DAILY 02/26/19 02/26/19 Allergies Allergy/AdvReac Type Severity Reaction Status Date / Time Penicillins Allergy Swelling Verified 02/26/19 14:43 alprazolam [From Xanax] AdvReac Hallucinati Verified 02/26/19 14:43 ons meperidine [From Demerol] AdvReac Hallucinati Verified 02/26/19 14:43 ons Review of Systems ROS Statement: Those systems with pertinent positive or pertinent negative responses have been documented in the HPI. ROS Other: All systems not noted in ROS Statement are negative. Past Medical History Past Medical History: Coronary Artery Disease (CAD), Diabetes Mellitus, Hyperlipidemia, Hypertension, Prostate Disorder, Pulmonary Embolus (PE) Additional Past Medical History / Comment(s): stents in legs History of Any Multi-Drug Resistant Organisms: None Reported Past Surgical History: Heart Catheterization With Stent Past Anesthesia/Blood Transfusion Reactions: No Reported Reaction Date of Last Stent Placement:: 05/05/18 Past Psychological History: No Psychological Hx Reported Smoking Status: Former smoker Past Alcohol Use History: None Reported Past Drug Use History: None Reported - Past Family History Mother Family Medical History: No Reported History Father Family Medical History: No Reported History General Exam Limitations: no limitations General appearance: alert, in no apparent distress Head exam: Present: atraumatic, normocephalic, normal inspection Eye exam: Present: normal appearance, PERRL, EOMI Pupils: Present: normal accommodation ENT exam: Present: normal exam, normal oropharynx, mucous membranes moist, TM's normal bilaterally, normal external ear exam Neck exam: Present: normal inspection, full ROM Respiratory exam: Present: normal lung sounds bilaterally. Absent: respiratory distress, wheezes, rales, rhonchi Cardiovascular Exam: Present: regular rate, normal rhythm, normal heart sounds Extremities exam: Present: normal inspection, full ROM Back exam: Present: normal inspection, full ROM Neurological exam: Present: alert, oriented X3 Psychiatric exam: Present: normal affect, normal mood Skin exam: Present: warm, intact, normal color Course Vital Signs 02/26/19 02/26/19 02/26/19 13:08 13:30 14:30 Temperature 97.9 F Pulse Rate 69 63 59 L Respiratory 20 20 20 Rate Blood Pressure 150/77 155/92 149/77 O2 Sat by Pulse 85 L 93 L 94 L Oximetry 02/26/19 02/26/19 16:30 17:50 Temperature 98.0 F Pulse Rate 72 75 Respiratory 20 20 Rate Blood Pressure 137/75 158/81 O2 Sat by Pulse 90 L 90 L Oximetry Medical Decision Making - Medical Decision Making Patient is an 78-year-old male with history of COPD and PVD is presenting to emergency department with a chief complaint of shortness of breath. On initial evaluation patient has an oxygen saturation of 95 on 2 L of oxygen. Patient also had a mild episode of chest pain yesterday. Cardiac workup is indicated. D-dimer also obtained and it was positive. CT of chest for pulmonary blows was negative. Initial troponin is negative as well. Rest of labs are unremarkable. EKG unchanged from previous one. Patient is not wheezing on auscultation and saturating well. No nebulized treatments indicated at this time. Considering the patient's cardiac history, I advised the patient to stay for serial troponins. Patient initially agreed. After about 2 hours, Patient reports that he feels much better and is ready go home. I advised the patient to stay but he declined. Pulse ox on room air and walking measured between 93% 96%. Patient reports feeling much better and just wants to go home. Patient advised to follow-up with senior branch manager and his primary care. Strict return parameters were thoroughly discussed with patient was or standing ago. Case discussed physician. - Lab Data Result diagrams: 02/26/19 13:30 02/26/19 13:30 Lab Results 02/26/19 02/26/19 02/26/19 Range/Units 13:30 13:30 13:30 WBC 6.2 (3.8-10.6) k/uL RBC 3.79 L (4.30-5.90) m/uL Hgb 13.3 (13.0-17.5) gm/dL Hct 40.3 (39.0-53.0) % MCV 106.2 H (80.0-100.0) fL MCH 34.9 (25.0-35.0) pg MCHC 32.9 (31.0-37.0) g/dL RDW 13.3 (11.5-15.5) % Plt Count 174 (150-450) k/uL Neutrophils % 75 % Lymphocytes % 12 % Monocytes % 8 % Eosinophils % 1 % Basophils % 2 % Neutrophils # 4.7 (1.3-7.7) k/uL Lymphocytes # 0.7 L (1.0-4.8) k/uL Monocytes # 0.5 (0-1.0) k/uL Eosinophils # 0.1 (0-0.7) k/uL Basophils # 0.1 (0-0.2) k/uL Macrocytosis Moderate PT 11.9 (9.0-12.0) sec INR 1.1 (<1.2) APTT 31.9 H (22.0-30.0) sec D-Dimer 0.79 H (<0.60) mg/L FEU Sodium 139 (137-145) mmol/L Potassium 4.5 (3.5-5.1) mmol/L Chloride 97 L (98-107) mmol/L Carbon Dioxide 36 H (22-30) mmol/L Anion Gap 6 mmol/L BUN 17 (9-20) mg/dL Creatinine 1.22 (0.66-1.25) mg/dL Est GFR (CKD-EPI)AfAm 65 (>60 ml/min/1.73 sqM) Est GFR (CKD-EPI)NonAf 56 (>60 ml/min/1.73 sqM) Glucose 279 H (74-99) mg/dL Calcium 9.0 (8.4-10.2) mg/dL Magnesium 1.7 (1.6-2.3) mg/dL Total Bilirubin 0.5 (0.2-1.3) mg/dL AST 23 (17-59) U/L ALT 29 (21-72) U/L Alkaline Phosphatase 84 (38-126) U/L Troponin I (0.000-0.034) ng/mL Total Protein 6.9 (6.3-8.2) g/dL Albumin 3.9 (3.5-5.0) g/dL 02/26/19 Range/Units 13:30 WBC (3.8-10.6) k/uL RBC (4.30-5.90) m/uL Hgb (13.0-17.5) gm/dL Hct (39.0-53.0) % MCV (80.0-100.0) fL MCH (25.0-35.0) pg MCHC (31.0-37.0) g/dL RDW (11.5-15.5) % Plt Count (150-450) k/uL Neutrophils % % Lymphocytes % % Monocytes % % Eosinophils % % Basophils % % Neutrophils # (1.3-7.7) k/uL Lymphocytes # (1.0-4.8) k/uL Monocytes # (0-1.0) k/uL Eosinophils # (0-0.7) k/uL Basophils # (0-0.2) k/uL Macrocytosis PT (9.0-12.0) sec INR (<1.2) APTT (22.0-30.0) sec D-Dimer (<0.60) mg/L FEU Sodium (137-145) mmol/L Potassium (3.5-5.1) mmol/L Chloride (98-107) mmol/L Carbon Dioxide (22-30) mmol/L Anion Gap mmol/L BUN (9-20) mg/dL Creatinine (0.66-1.25) mg/dL Est GFR (CKD-EPI)AfAm (>60 ml/min/1.73 sqM) Est GFR (CKD-EPI)NonAf (>60 ml/min/1.73 sqM) Glucose (74-99) mg/dL Calcium (8.4-10.2) mg/dL Magnesium (1.6-2.3) mg/dL Total Bilirubin (0.2-1.3) mg/dL AST (17-59) U/L ALT (21-72) U/L Alkaline Phosphatase (38-126) U/L Troponin I <0.012 (0.000-0.034) ng/mL Total Protein (6.3-8.2) g/dL Albumin (3.5-5.0) g/dL Disposition Clinical Impression: Shortness of breath Disposition: HOME SELF-CARE Condition: Stable Instructions (If sedation given, give patient instructions): Chronic Cough (ED) Additional Instructions: Please follow up with primary care and cardiology. Please return to emergency department symptoms worsen. Is patient prescribed a controlled substance at d/c from ED?: No Referrals: Casey Brown DO [Primary Care Provider] - 1-2 days Time of Disposition: 17:54
--- NOTE | 2019-02-26 15:41 | CT ---
EXAMINATION TYPE: CT chest angio for PE DATE OF EXAM: 02/26/2019 COMPARISON: None HISTORY: shortness of breath CT DLP: 446.9 mGycm CONTRAST: CT chest with contrast and 3D reconstruction with MIP imaging is performed with IV Contrast, patient injected with 80 mL of Isovue 370. Contrast-enhanced CT of the chest was performed through the course of the pulmonary arteries with ha g and mediastinal window settings submitted. 3D reconstruction with MIP imaging was also performed. PULMONARY ARTERIES: The pulmonary arteries and their major tributaries are patent. I do not see shun dence for sizable filling defect to suggest pulmonary embolic process. LUNGS: The lungs are clear and free of infiltrate. Linear atelectasis in the region of the lingula. N o pulmonary nodule or mass is detected. No pleural effusion. MEDIASTINUM: Small sliding-type hiatal hernia noted. Thoracic aorta is of normal caliber,however, ev aluation is limited given timing of the contrast bolus. If there is concern for thoracic aortic path ology consider CARLIE. Correlate clinically . The heart is not enlarged. No evidence for mediastinal m ass. No mediastinal lymph nodes greater than 1cm. HILAR STRUCTURES: No evidence for mass. No hilar lymph nodes greater than 1 cm. UPPER ABDOMEN: No significant abnormality is seen. IMPRESSION: 1. No evidence for Pulmonary embolism at this time.
[2019-02-26 17:53] VITALS: BP 158/81; PULSE 75; TEMP 98
== END 2019-02-26 18:17 | disposition home or self-care (01) ==
LOC: EC 13:00
DX: R06.02 Shortness of breath (principal); R42 Dizziness and giddiness; R53.1 Weakness; J44.9 Chronic obstructive pulmonary disease, unspecified; I10 Essential (primary) hypertension; E78.5 Hyperlipidemia, unspecified; I25.10 Atherosclerotic heart disease of native coronary artery without angina pectoris; E11.51 Type 2 diabetes mellitus with diabetic peripheral angiopathy without gangrene; Z79.82 Long term (current) use of aspirin; Z79.4 Long term (current) use of insulin; Z79.1 Long term (current) use of non-steroidal anti-inflammatories (NSAID); Z79.01 Long term (current) use of anticoagulants; Z79.899 Other long term (current) drug therapy; Z88.0 Allergy status to penicillin; Z88.5 Allergy status to narcotic agent; Z88.8 Allergy status to other drugs, medicaments and biological substances; Z87.891 Personal history of nicotine dependence; Z95.5 Presence of coronary angioplasty implant and graft; Z86.711 Personal history of pulmonary embolism
CPT/HCPCS: 36415; 93005; 85379; 80053; 83735; 84484; 85025; 85610; 85730; 71046; 71275; 99285; Q9967

== ENCOUNTER 2023-11-17 20:09 | Inpatient (IN) | payer MEDICARE, OTHER ==
--- NOTE | 2023-11-17 21:01 | ED ---
Fever HPI - General Source: patient, EMS, RN notes reviewed Mode of arrival: ambulatory Limitations: no limitations <Suzie Charles - Last Filed: 11/18/23 00:40> <Jesse Ellis - Last Filed: 11/18/23 07:10> - General Chief Complaint: Fever Stated Complaint: SOB Time Seen by Provider: 11/17/23 20:59 - History of Present Illness Initial Comments: 83-year-old male presented to the ER via EMS with a chief complaint of shortness of breath. Patient has a past medical history significant of CAD, diabetes, hyperlipidemia, hypertension and pulmonary embolism. Patient states today he has been having an increase of shortness of breath and dizziness. He states he normally wears nasal cannula oxygen at home he is unsure of how much. He does report today feeling dizzy like the room is spinning. He states he sat down prior to falling. He does report a wet cough and pain with deep inspiration. Denies any known fevers at home. Admits to mild nausea denies emesis. Denies any chest pain, palpitations, abdominal pain, constipation/diarrhea, urinary complaints or peripheral edema. (Suzie Charles) - Related Data Home Medications Medication Instructions Recorded Confirmed Donepezil [Aricept] 5 mg PO DIRECTED 11/17/23 11/17/23 Ferrous Sulfate [Feosol] 325 mg PO DIRECTED 11/17/23 11/17/23 Insulin Lispro [humaLOG Kwikpen] 1 - 7 unit SQ DIRECTED 11/17/23 11/17/23 Melatonin 3 mg PO DIRECTED 11/17/23 11/17/23 Metoprolol Succinate (ER) [Toprol 100 mg PO DIRECTED 11/17/23 11/17/23 Xl] Nitroglycerin Sl Tabs [Nitrostat] 0.4 mg SUBLINGUAL Q5M PRN 11/17/23 11/17/23 Potassium Bicarbonate/Cit AC 20 meq PO DIRECTED 11/17/23 11/17/23 [K-Lyte] QUEtiapine [SEROquel] 12.5 mg PO DIRECTED 11/17/23 11/17/23 Sennosides [Senokot] 8.6 mg PO DIRECTED 11/17/23 11/17/23 dilTIAZem HCL 30 mg PO DIRECTED 11/17/23 11/17/23 guaiFENesin [Mucinex] 600 mg PO DIRECTED 11/17/23 11/17/23 hydrALAZINE HCL [Apresoline] 10 mg PO DIRECTED 11/17/23 11/17/23 Allergies Allergy/AdvReac Type Severity Reaction Status Date / Time Penicillins Allergy Swelling Verified 11/17/23 20:23 alprazolam [From Xanax] AdvReac Hallucinati Verified 11/17/23 20:23 ons meperidine [From Demerol] AdvReac Hallucinati Verified 11/17/23 20:23 ons Review of Systems ROS Other: All systems not noted in ROS Statement are negative. <Suzie Charles - Last Filed: 11/18/23 00:40> ROS Other: All systems not noted in ROS Statement are negative. <Jesse Ellis - Last Filed: 11/18/23 07:10> ROS Statement: Those systems with pertinent positive or pertinent negative responses have been documented in the HPI. Past Medical History Past Medical History: Coronary Artery Disease (CAD), Diabetes Mellitus, Hyperlipidemia, Hypertension, Prostate Disorder, Pulmonary Embolus (PE) Additional Past Medical History / Comment(s): stents in legs History of Any Multi-Drug Resistant Organisms: None Reported Past Surgical History: Heart Catheterization With Stent Past Anesthesia/Blood Transfusion Reactions: No Reported Reaction Date of Last Stent Placement:: 05/05/18 Past Psychological History: No Psychological Hx Reported Past Alcohol Use History: None Reported Past Drug Use History: None Reported - Past Family History Mother Family Medical History: No Reported History Father Family Medical History: No Reported History <Suzie Charles - Last Filed: 11/18/23 00:40> General Exam General appearance: alert, in no apparent distress ENT exam: Present: normal exam, mucous membranes moist Respiratory exam: Present: wheezes, rhonchi (bilaterally) Cardiovascular Exam: Present: regular rate, normal rhythm, normal heart sounds. Absent: systolic murmur, diastolic murmur, rubs, gallop, clicks GI/Abdominal exam: Present: soft, normal bowel sounds, hernia (umbilical). Abs ent: distended, tenderness, guarding, rebound, rigid Extremities exam: Present: normal inspection, full ROM, normal capillary refill. Absent: tenderness, pedal edema, joint swelling, calf tenderness Neurological exam: Present: alert, oriented X3, CN II-XII intact Skin exam: Present: warm, dry, intact, normal color. Absent: rash <Suzie Charles - Last Filed: 11/18/23 00:40> Course <Suzie Charles - Last Filed: 11/18/23 00:40> Vital Signs 11/17/23 11/17/23 11/17/23 20:20 22:00 22:11 Temperature 102.4 F H 99.0 F Pulse Rate 89 84 84 Respiratory 18 16 16 Rate Blood Pressure 159/67 160/73 139/54 O2 Sat by Pulse 95 94 L 92 L Oximetry 11/17/23 11/17/23 11/17/23 22:19 22:29 23:00 Temperature Pulse Rate 81 85 86 Respiratory 17 Rate Blood Pressure 135/55 O2 Sat by Pulse 97 Oximetry 11/17/23 11/17/23 11/18/23 23:05 23:30 00:00 Temperature 98.4 F Pulse Rate 137 H 89 Respiratory 16 16 Rate Blood Pressure 135/68 138/67 O2 Sat by Pulse 96 96 Oximetry 11/18/23 11/18/23 11/18/23 00:30 04:41 06:03 Temperature 99.4 F Pulse Rate 85 87 85 Respiratory 16 19 17 Rate Blood Pressure 129/56 175/79 144/77 O2 Sat by Pulse 96 94 L 89 L Oximetry 11/18/23 11/18/23 11/18/23 06:13 06:17 06:24 Temperature Pulse Rate 85 76 Respiratory 17 Rate Blood Pressure 144/77 O2 Sat by Pulse 88 L 97 Oximetry 11/18/23 11/18/23 06:36 06:42 Temperature Pulse Rate 86 84 Respiratory 17 Rate Blood Pressure O2 Sat by Pulse 97 Oximetry - Reevaluation(s) Reevaluation #1: 11/18/23 00:33 Case discussed with [facility] physician, Dr. Gay who accepts admission. (Suzie Charles) Medical Decision Making - Lab Data Result diagrams: 11/17/23 21:01 11/17/23 21:01 - EKG Data -: EKG Interpreted by Tn - Radiology Data Radiology results: report reviewed, image reviewed <Suzie Charles - Last Filed: 11/18/23 00:40> - Lab Data Result diagrams: 11/17/23 21:01 11/17/23 21:01 <Jesse Ellis - Last Filed: 11/18/23 07:10> - Medical Decision Making Was pt. sent in by a medical professional or institution (, SHANNON, CENTRAL OFFICE MECHANIC, urgent care, hospital, or long-term...) When possible be specific @ -No Did you speak to anyone other than the patient for history (EMS, parent, family, police, friend...)? What history was obtained from this source @ -No Did you review nursing and triage notes (agree or disagree)? Why? @ -I reviewed and agree with nursing and triage notes Were old charts reviewed (outside hosp., previous admission, EMS record, old EKG, old radiological studies, urgent care reports/EKG's, long-term records)? Report findings @ -No old charts were reviewed Differential Diagnosis (chest pain, altered mental status, abdominal pain women, abdominal pain men, vaginal bleeding, weakness, fever, dyspnea, syncope, headache, dizziness, GI bleed, back pain, seizure, CVA, palpatations, mental health, musculoskeletal)? @ -Differential Dyspnea: Coronary syndrome, arrhythmia, tamponade, asthma, COPD, pulmonary embolism, pneumonia, pneumothorax, pulmonary effusion, anaphylaxis, diabetic ketoacidosis, flailed chest, pulmonary contusion, diaphragmatic rupture, anemia, neuromuscular, this is not meant to be an all-inclusive list. EKG interpreted by me (3pts min.). @ -As above X-rays interpreted by me (1pt min.). @ -Chest x-ray interpreted by me remarkable for a patchy opacity to the inferior lingula CT interpreted by me (1pt min.). @ -None done U/S interpreted by me (1pt. min.). @ -None done What testing was considered but not performed or refused? (CT, X-rays, U/S, labs)? Why? @ -None What meds were considered but not given or refused? Why? @ -None Did you discuss the management of the patient with other professionals (professionals i.e. SHANNON Parker, CENTRAL OFFICE MECHANIC, lab, RT, psych nurse, web content & social media manager, bolt cutter, teacher, appeals officer, family independence case manager)? Give summary @ -Yes, case discussed with sound physician, Dr. Gay, who accepts admission. Was smoking cessation discussed for >3mins.? @ -No Was critical care preformed (if so, how long)? @ -No Were there social determinants of health that impacted care today? How? (Home lessness, low income, unemployed, alcoholism, drug addiction, transportation, low edu. Level, literacy, decrease access to med. care, halfway, rehab)? @ -No Was there de-escalation of care discussed even if they declined (Discuss DNR or withdrawal of care, Hospice)? DNR status @ -No What co-morbidities impacted this encounter? (DM, HTN, Smoking, COPD, CAD, Cancer, CVA, ARF, Chemo, Hep., AIDS, mental health diagnosis, sleep apnea, morbid obesity)? @ -Coronary artery disease, diabetes mellitus, hypertension, history of PE not currently on blood thinner Was patient admitted / discharged? Hospital course, mention meds given and route, prescriptions, significant lab abnormalities, going to OR and other pertinent info. @ -Admitted. 83-year-old male presented to the ER with a chief complaint of shortness of breath. Patient does state he is supposed to be on oxygen at home. He is unsure of how much and has not been noncompliant. History and physical exam completed. Vitals upon arrival remarkable for temperature of 102 otherwise stable. Exam significant for. Active wet cough. Bilateral wheezing and rhonchi present on exam. No peripheral edema. Normal heart sounds. Laboratory studies obtained remarkable for white blood cell count 8.0, lactic 1.0. Hemoglobin 12.7 which appears to be chronic in nature. Elevated D-dimer at 0.93 CTA ordered and pending. Chest x-ray interpreted by me remarkable for patchy opacity to the inferior lingula concerning of pneumonia. She received by mouth Tylenol with improvement of fever. Urine analysis pending. COVID, RSV, influenza negative. Patient had a numerous bouts of tachycardic arrthymias throughout ER stay. Heart rate ranging from 80s bpm to 130/140 bpm. Vitals otherwise stable. Patient denied chest pain or palpitations. Admission considered for pneumonia. Case discussed with [facility] physician, Dr. Gay who accepts admission. Blood cultures obtained. Patient started on IV levofloxacin due to penicillin allergy. Cardiology on consult due to tachycardic episodes. Case signed out to Dr. Ellis pending CTA results. Undiagnosed new problem with uncertain prognosis? @ -No Drug Therapy requiring intensive monitoring for toxicity (Heparin, Nitro, Insulin, Cardizem)? @ -No Were any procedures done? @ -No Diagnosis/symptom? @ -Pneumonia/tachycardic arrhythmia Acute, or Chronic, or Acute on Chronic? @ -Acute Uncomplicated (without systemic symptoms) or Complicated (systemic symptoms)? @ -Complicated Side effects of treatment? @ -No Exacerbation, Progression, or Severe Exacerbation? @ -No Poses a threat to life or bodily function? How? (Chest pain, USA, SD, pneumonia, PE, COPD, DKA, ARF, appy, cholecystitis, CVA, Diverticulitis, Homicidal, Suicidal, threat to staff... and all critical care pts) @ -Yes, pneumonia can lead to sepsis (Suzie Charles) I followed up on the patient's CT results which were pending. Patient is being admitted for pneumonia. Is already on antibiotics as well as IV fluids. CT PE negative for any obvious pulmonary embolism. Patient will be admitted at this time to Dr. Gay. EKG was obtained during an episode of what appears to be junctional tachycardia that self resolved and cardiology was consulted for evaluation of this. (Jesse Ellis) - Lab Data Lab Results 11/17/23 11/17/23 11/17/23 Range/Units 20:35 21:01 21:01 WBC 8.0 (3.8-10.6) k/uL RBC 3.78 L (4.30-5.90) m/uL Hgb 12.7 L (13.0-17.5) gm/dL Hct 39.2 (39.0-53.0) % MCV 103.7 H (80.0-100.0) fL MCH 33.8 (25.0-35.0) pg MCHC 32.5 (31.0-37.0) g/dL RDW 16.8 H (11.5-15.5) % Plt Count 109 L (150-450) k/uL MPV 8.3 Neutrophils % 73 % Lymphocytes % 11 % Monocytes % 13 % Eosinophils % 0 % Basophils % 1 % Neutrophils # 5.9 (1.3-7.7) k/uL Lymphocytes # 0.9 L (1.0-4.8) k/uL Monocytes # 1.0 (0-1.0) k/uL Eosinophils # 0.0 (0-0.7) k/uL Basophils # 0.0 (0-0.2) k/uL Hypochromasia Slight Anisocytosis Slight Macrocytosis Moderate PT 11.2 (10.0-12.5) sec INR 1.0 (<1.2) APTT 26.0 (22.0-30.0) sec D-Dimer 0.93 H (<0.60) mg/L FEU Sodium 138 (137-145) mmol/L Potassium 4.2 (3.5-5.1) mmol/L Chloride 99 (98-107) mmol/L Carbon Dioxide 37 H (22-30) mmol/L Anion Gap 2 mmol/L BUN 18 (9-20) mg/dL Creatinine 1.09 (0.66-1.25) mg/dL Est GFR (CKD-EPI)AfAm 71 (>60 ml/min/1.73 sqM) Est GFR (CKD-EPI)NonAf 62 (>60 ml/min/1.73 sqM) Glucose 112 H (74-99) mg/dL Plasma Lactic Acid Laci (0.7-2.0) mmol/L Calcium 8.4 (8.4-10.2) mg/dL Total Bilirubin 0.8 (0.2-1.3) mg/dL AST 37 (17-59) U/L ALT 20 (4-49) U/L Alkaline Phosphatase 73 (38-126) U/L Troponin I (0.000-0.034) ng/mL Total Protein 6.6 (6.3-8.2) g/dL Albumin 3.6 (3.5-5.0) g/dL Urine Color Urine Appearance (Clear) Urine pH (5.0-8.0) Ur Specific [place] (1.001-1.035) Urine Protein (Negative) Urine Glucose (UA) (Negative) Urine Ketones (Negative) Urine Blood (Negative) Urine Nitrite (Negative) Urine Bilirubin (Negative) Urine Urobilinogen (<2.0) mg/dL Ur Leukocyte Esterase (Negative) Urine RBC (0-5) /hpf Urine WBC (0-5) /hpf Hyaline Casts (0-2) /lpf Urine Mucus (None) /hpf Influenza Type A (PCR) (Not Detectd) Influenza Type B (PCR) (Not Detectd) RSV (PCR) (Not Detectd) SARS-CoV-2 (PCR) (Not Detectd) 11/17/23 11/17/23 11/17/23 Range/Units 21:01 21:01 21:55 WBC (3.8-10.6) k/uL RBC (4.30-5.90) m/uL Hgb (13.0-17.5) gm/dL Hct (39.0-53.0) % MCV (80.0-100.0) fL MCH (25.0-35.0) pg MCHC (31.0-37.0) g/dL RDW (11.5-15.5) % Plt Count (150-450) k/uL MPV Neutrophils % % Lymphocytes % % Monocytes % % Eosinophils % % Basophils % % Neutrophils # (1.3-7.7) k/uL Lymphocytes # (1.0-4.8) k/uL Monocytes # (0-1.0) k/uL Eosinophils # (0-0.7) k/uL Basophils # (0-0.2) k/uL Hypochromasia Anisocytosis Macrocytosis PT (10.0-12.5) sec INR (<1.2) APTT (22.0-30.0) sec D-Dimer (<0.60) mg/L FEU Sodium (137-145) mmol/L Potassium (3.5-5.1) mmol/L Chloride (98-107) mmol/L Carbon Dioxide (22-30) mmol/L Anion Gap mmol/L BUN (9-20) mg/dL Creatinine (0.66-1.25) mg/dL Est GFR (CKD-EPI)AfAm (>60 ml/min/1.73 sqM) Est GFR (CKD-EPI)NonAf (>60 ml/min/1.73 sqM) Glucose (74-99) mg/dL Plasma Lactic Acid Laci 1.0 (0.7-2.0) mmol/L Calcium (8.4-10.2) mg/dL Total Bilirubin (0.2-1.3) mg/dL AST (17-59) U/L ALT (4-49) U/L Alkaline Phosphatase (38-126) U/L Troponin I 0.015 (0.000-0.034) ng/mL Total Protein (6.3-8.2) g/dL Albumin (3.5-5.0) g/dL Urine Color Urine Appearance (Clear) Urine pH (5.0-8.0) Ur Specific [place] (1.001-1.035) Urine Protein (Negative) Urine Glucose (UA) (Negative) Urine Ketones (Negative) Urine Blood (Negative) Urine Nitrite (Negative) Urine Bilirubin (Negative) Urine Urobilinogen (<2.0) mg/dL Ur Leukocyte Esterase (Negative) Urine RBC (0-5) /hpf Urine WBC (0-5) /hpf Hyaline Casts (0-2) /lpf Urine Mucus (None) /hpf Influenza Type A (PCR) Not Detected (Not Detectd) Influenza Type B (PCR) Not Detected (Not Detectd) RSV (PCR) Not Detected (Not Detectd) SARS-CoV-2 (PCR) Not Detected (Not Detectd) 11/18/23 Range/Units 02:18 WBC (3.8-10.6) k/uL RBC (4.30-5.90) m/uL Hgb (13.0-17.5) gm/dL Hct (39.0-53.0) % MCV (80.0-100.0) fL MCH (25.0-35.0) pg MCHC (31.0-37.0) g/dL RDW (11.5-15.5) % Plt Count (150-450) k/uL MPV Neutrophils % % Lymphocytes % % Monocytes % % Eosinophils % % Basophils % % Neutrophils # (1.3-7.7) k/uL Lymphocytes # (1.0-4.8) k/uL Monocytes # (0-1.0) k/uL Eosinophils # (0-0.7) k/uL Basophils # (0-0.2) k/uL Hypochromasia Anisocytosis Macrocytosis PT (10.0-12.5) sec INR (<1.2) APTT (22.0-30.0) sec D-Dimer (<0.60) mg/L FEU Sodium (137-145) mmol/L Potassium (3.5-5.1) mmol/L Chloride (98-107) mmol/L Carbon Dioxide (22-30) mmol/L Anion Gap mmol/L BUN (9-20) mg/dL Creatinine (0.66-1.25) mg/dL Est GFR (CKD-EPI)AfAm (>60 ml/min/1.73 sqM) Est GFR (CKD-EPI)NonAf (>60 ml/min/1.73 sqM) Glucose (74-99) mg/dL Plasma Lactic Acid Laci (0.7-2.0) mmol/L Calcium (8.4-10.2) mg/dL Total Bilirubin (0.2-1.3) mg/dL AST (17-59) U/L ALT (4-49) U/L Alkaline Phosphatase (38-126) U/L Troponin I (0.000-0.034) ng/mL Total Protein (6.3-8.2) g/dL Albumin (3.5-5.0) g/dL Urine Color Light Yellow Urine Appearance Clear (Clear) Urine pH 5.5 (5.0-8.0) Ur Specific [place] 1.050 H (1.001-1.035) Urine Protein 1+ H (Negative) Urine Glucose (UA) Negative (Negative) Urine Ketones Negative (Negative) Urine Blood Small H (Negative) Urine Nitrite Negative (Negative) Urine Bilirubin Negative (Negative) Urine Urobilinogen <2.0 (<2.0) mg/dL Ur Leukocyte Esterase Negative (Negative) Urine RBC 4 (0-5) /hpf Urine WBC 9 H (0-5) /hpf Hyaline Casts 45 H (0-2) /lpf Urine Mucus Rare H (None) /hpf Influenza Type A (PCR) (Not Detectd) Influenza Type B (PCR) (Not Detectd) RSV (PCR) (Not Detectd) SARS-CoV-2 (PCR) (Not Detectd) - EKG Data EKG Comments: EKG taken at 20: 51 showing a sinus rhythm with no acute ST segment or T wave abnormalities. Ventricular rate 90, WV interval 142, QRS duration 102, QT/QTc 381/429. EKG taken at 23: 36 junctional tachycardia no acute ST segment or T wave abnormalities. Ventricular rate 134, WV interval 121, QRS duration 102, QT/QTc 309/388. (Suzie Charles) Disposition Time of Disposition: 00:42 <Suzie Charles - Last Filed: 11/18/23 00:40> <Jesse Ellis - Last Filed: 11/18/23 07:10> Clinical Impression: Pneumonia, Junctional tachycardia Disposition: ADMITTED IP TO THIS HOSP Condition: Stable
[2023-11-17] MEDS: ACETAMINOPHEN TAB 325 MG TAB PO STA (21:13)
[2023-11-17 21:17] LABS: ALT 20 U/L (4-49); African American GFR (CKD) 71 (>60 ml/min/1.73 sqM); Albumin 3.6 g/dL (3.5-5.0); Anion Gap 2 mmol/L; Blood Urea Nitrogen 18 mg/dL (9-20); Calcium 8.4 mg/dL (8.4-10.2); Carbon Dioxide 37 mmol/L (22-30); Chloride 99 mmol/L (98-107); Glucose 112 mg/dL (74-99); Non-African American GFR(CKD) 62 (>60 ml/min/1.73 sqM); Sodium 138 mmol/L (137-145); Total Bilirubin 0.8 mg/dL (0.2-1.3); Total Protein 6.6 g/dL (6.3-8.2)
[2023-11-17 21:22] LABS: AST 37 U/L (17-59); Alkaline Phosphatase 73 U/L (38-126); Potassium 4.2 mmol/L (3.5-5.1)
--- NOTE | 2023-11-17 21:29 | XR ---
EXAMINATION TYPE: XR chest 2V DATE OF EXAM: 11/17/2023 COMPARISON: 02/26/2019 HISTORY: 83 year-old male fever and shortness of breath TECHNIQUE: PA and lateral views FINDINGS: Heart normal in size. Hyperinflation. Patchy opacity inferior lingula. No pleural effusion. IMPRESSION: COPD with patchy opacity, possible developing pneumonia at the inferior lingula. Follow-up after cristina tment to ensure clearance.
[2023-11-17 21:48] LABS: Anisocytosis Slight; Basophils % (A) 1 %; Eosinophils % (A) 0 %; HCT 39.2 % (39.0-53.0); HGB 12.7 gm/dL (13.0-17.5); Hypochromasia Slight; Lymphocytes # (A) 0.9 k/uL (1.0-4.8); Lymphocytes % (A) 11 %; MCH 33.8 pg (25.0-35.0); MCHC 32.5 g/dL (31.0-37.0); MCV 103.7 fL (80.0-100.0); Macrocytosis Moderate; Mean Platelet Volume 8.3; Monocytes % (A) 13 %; Neutrophils # (A) 5.9 k/uL (1.3-7.7); Neutrophils % (A) 73 %; Platelet Count 109 k/uL (150-450); RBC 3.78 m/uL (4.30-5.90); RDW 16.8 % (11.5-15.5)
[2023-11-17] MEDS: IPRATROPIUM-ALBUTEROL 3 ML NEB INHALATION STA (22:17)
[2023-11-17 23:35] LABS: Prothrombin Time 11.2 sec (10.0-12.5)
[2023-11-18] MEDS: SODIUM CHLORIDE 0.9% 1,000 ML IV STA ×2 (00:37→00:38)
[2023-11-18] MEDS: LEVOFLOXACIN 750MG-D5W PMX 750 MG in DEXTROSE/WATER 1 150ML.BAG IVPB STA (00:37)
[2023-11-18 03:14] LABS: Appearance,Urine Clear (Clear); Bilirubin,Urine Negative (Negative); Blood,Urine Small (Negative); Color,Urine Light Yellow; Glucose,Urine (UA) Negative (Negative); Hyaline Casts,Urine 45 /lpf (0-2); Ketones,Urine Negative (Negative); Leukocyte Esterase,Urine Negative (Negative); Mucus,Urine Rare /hpf; Nitrite,Urine Negative (Negative); PH, Urine 5.5 (5.0-8.0); Protein,Urine 1+ (Negative); RBC,Urine 4 /hpf (0-5); Urobilinogen,Urine <2.0 mg/dL (<2.0); WBC,Urine 9 /hpf (0-5)
--- NOTE | 2023-11-18 03:28 | P.HPIM ---
History of Present Illness H&P Date: 11/18/23 Chief Complaint: SOB Patient is a 83-year-old male with past medical history of COPD with chronic hypoxic resp failure on unknown amounts of home oxygen therapy, type 2 diabetes, hypertension, CAD, history of PE, presents to the ER with 1-2 days of shortness of breath. Patient stated that his shortness of breath started gradually and got worse towards the evening which prompted him to call EMS. Patient reports non-exertional shortness of breath associated with a dry cough and mild fever. Patient reports no other alleviating or exacerbating factors. He denies chest co mfort. Denies hemoptysis. Patient denies orthopnea, LE swelling, and PND. Denies recent travel or hospitalization. Patient reports using home oxygen through nasal cannula but unsure of how much oxygen he uses. Patient reports previous episode of shortness of breath which resulted in hospitalization 5 to 6 months ago for a cause not known to hime. Patient is also not completely sure of his status on CAD and PE history but states that he underwent PCI stenting 1 year ago. Patient denies headaches, dizziness, blurry vision, abdominal pain, constipation, diarrhea, urinary incontinence or other issues, and weakness or numbness in upper and lower extremities. Chest x-ray done in the ER shows COPD with patchy opacity, possible developing pneumonia at the left inferior ingula. CT angiogram PE study revealed findings of minimal right upper lobe pneumonia. EKG done at 20:51 in ER shows sinus rhythm with heart rate 90 bpm with no STT wave abnormalities. No QTc prolongation noted. EKG at 23:26 in ER shows junctional tachycardia with heart rate 134 bpm with inverted P-waves in the inferior leads II, III, and aVF. T-wave flattening in leads V2-V3. No QTc prolongation noted. Laboratory evaluation show WBC 8.0, hemoglobin 12.7, hematocrit 39.2, MCV 103.7, platelet 109, D-dimer 0.93, sodium 138, potassium 4.2, chloride 99, bicarb 37, BUN 18, creatinine 1.09, EGFR 62, glucose 112, and troponin 0.015. The patient's temperature upon arrival was 102.4 F. Review of systems: Pertinent positives and negatives as discussed in HPI, a complete review of systems was performed and all other systems are negative. Social history: Tobacco: 1 pack/day x 60 years Alcohol: None Recreational drugs: None Travel: No recent Occupation: Retired Family History: Noncontributory Physical examination: Vital signs reviewed General: non toxic, no distress, appears at stated age, normal weight Derm: no unusual rashes/lesions, warm Head: atraumatic, normocephalic, symmetric Eyes: EOMI, no lid lag, anicteric sclera, pupils equal round reactive to light ENT: Nose and ears atraumatic Neck: No cervical lymphadenopathy, trachea midline, supple Mouth: no lip lesion, mucus membranes moist Cardiovascular: S1S2 reg, no murmur, positive dorsalis pedis pulse bilateral, no edema Lungs: Decreased air entry bilaterally, diffuse wheezing with rhonchi, no rales, no accessory muscle use Abdominal: soft, nontender to palpation, no guarding Ext: muscle strength 5 out of 5 in all 4 extremities grossly, no gross muscle atrophy, no contractures, Neuro: CN II-XI grossly intact, no gross focal neuro deficits Psych: Alert and oriented to place and person but not fully to time, appropriate affect Assessment/Plan: 83-year-old male with a history of COPD, hypertension, and diabetes mellitus came to the ER with complaint of shortness of breath and low-grade fever. 1. Community-acquired lobar pneumonia Chest x-ray shows COPD with patchy opacity at the left inferior ingula Continue with IV levofloxacin 750 mg q24h (Penicillin allergy) Order sputum culture Follow-up on blood culture Order urine Legionella antigen test Curb 65: 2 points; moderate risk 2. Mild Acute COPD exacerbation Long-term smoking history: 1 pack/day x 60 years Order DuoNebs [id number] and as needed Will order Prednisone 40 mg PO qd Continue with oxygen therapy via nasal cannula with O2 saturation target of 88 to 92% Continue monitoring O2 sat 3. Junctional tachycardia Patient has underlying history of CAD s/p stenting Will consult Cardiology for possible sick sinus syndrome vs ectopic pacemaker C/w Cardiac monitoring 4. Macrocytic anemia, likely due to poor nutrition Hemoglobin 12.7, hematocrit 39.2, MCV 103.7 Check RBC folate and vitamin B12 5. Elevated D-dimer D-dimer 0.93 Wells score for PE: 1.5 points, low risk CT angio of chest shows no evidence of PE 6. Thrombocytopenia Platelet 109, PT 11.2, INR 1.0, APTT 26 Patient denies any bleeding Continue monitor platelet counts 7. Diabetes mellitus, likely type II Serum glucose 112 mg/dL Started on sliding scale short acting insulin Continue monitor blood glucose level 8. Elevated bicarbonate (Chronic, at baseline), likely due to chronic hypercapn ia in setting of COPD C/w above management of COPD Monitor BMP *Chronic conditions: Hypertension diabetes and mellitus likely type II Resume home medications DVT prophylaxis: Lovenox 40 mg subcu daily The patient is admitted with an anticipated greater than 2 midnight stay for evaluation of COPD exacerbation with community-acquired pneumonia CODE STATUS: Full Discussed with: Patient Anticipated discharge place: Home Past Medical History Past Medical History: Coronary Artery Disease (CAD), Diabetes Mellitus, Hyperlipidemia, Hypertension, Prostate Disorder, Pulmonary Embolus (PE) Additional Past Medical History / Comment(s): stents in legs History of Any Multi-Drug Resistant Organisms: None Reported Past Surgical History: Heart Catheterization With Stent Past Anesthesia/Blood Transfusion Reactions: No Reported Reaction Date of Last Stent Placement:: 05/05/18 Past Psychological History: No Psychological Hx Reported Past Alcohol Use History: None Reported Past Drug Use History: None Reported - Past Family History Mother Family Medical History: No Reported History Father Family Medical History: No Reported History Medications and Allergies Home Medications Medication Instructions Recorded Confirmed Type Donepezil [Aricept] 5 mg PO DIRECTED 11/17/23 11/17/23 History Ferrous Sulfate [Feosol] 325 mg PO DIRECTED 11/17/23 11/17/23 History Insulin Lispro [humaLOG Kwikpen] 1 - 7 unit SQ DIRECTED 11/17/23 11/17/23 History Melatonin 3 mg PO DIRECTED 11/17/23 11/17/23 History Metoprolol Succinate (ER) [Toprol 100 mg PO DIRECTED 11/17/23 11/17/23 History Xl] Nitroglycerin Sl Tabs [Nitrostat] 0.4 mg SUBLINGUAL Q5M PRN 11/17/23 11/17/23 History Potassium Bicarbonate/Cit AC 20 meq PO DIRECTED 11/17/23 11/17/23 History [K-Lyte] QUEtiapine [SEROquel] 12.5 mg PO DIRECTED 11/17/23 11/17/23 History Sennosides [Senokot] 8.6 mg PO DIRECTED 11/17/23 11/17/23 History dilTIAZem HCL 30 mg PO DIRECTED 11/17/23 11/17/23 History guaiFENesin [Mucinex] 600 mg PO DIRECTED 11/17/23 11/17/23 History hydrALAZINE HCL [Apresoline] 10 mg PO DIRECTED 11/17/23 11/17/23 History Allergies Allergy/AdvReac Type Severity Reaction Status Date / Time Penicillins Allergy Swelling Verified 11/17/23 20:23 alprazolam [From Xanax] AdvReac Hallucinati Verified 11/17/23 20:23 ons meperidine [From Demerol] AdvReac Hallucinati Verified 11/17/23 20:23 ons Physical Exam Vitals: Vital Signs Temp Pulse Resp BP Pulse Ox 11/18/23 00:30 85 16 129/56 96 11/18/23 00:00 89 16 138/67 96 11/17/23 23:30 137 H 16 135/68 96 11/17/23 23:05 98.4 F 11/17/23 23:00 86 17 135/55 97 11/17/23 22:29 85 11/17/23 22:19 81 11/17/23 22:11 84 16 139/54 92 L 11/17/23 22:00 99.0 F 84 16 160/73 94 L 11/17/23 20:20 102.4 F H 89 18 159/67 95 Intake and Output 11/17/23 11/17/23 11/18/23 14:59 22:59 06:59 Other: Weight 74.843 kg Results CBC & Chem 7: 11/17/23 21:01 11/17/23 21:01 Labs: Abnormal Lab Results - Last 24 Hours (Table) 11/17/23 11/17/23 11/17/23 Range/Units 20:35 21:01 21:01 RBC 3.78 L (4.30-5.90) m/uL Hgb 12.7 L (13.0-17.5) gm/dL MCV 103.7 H (80.0-100.0) fL RDW 16.8 H (11.5-15.5) % Plt Count 109 L (150-450) k/uL Lymphocytes # 0.9 L (1.0-4.8) k/uL D-Dimer 0.93 H (<0.60) mg/L FEU Carbon Dioxide 37 H (22-30) mmol/L Glucose 112 H (74-99) mg/dL Ur Specific [place] (1.001-1.035) Urine Protein (Negative) Urine Blood (Negative) Urine WBC (0-5) /hpf Hyaline Casts (0-2) /lpf Urine Mucus (None) /hpf // Range/Units 02:18 RBC (4.30-5.90) m/uL Hgb (13.0-17.5) gm/dL MCV (80.0-100.0) fL RDW (11.5-15.5) % Plt Count (150-450) k/uL Lymphocytes # (1.0-4.8) k/uL D-Dimer (<0.60) mg/L FEU Carbon Dioxide (22-30) mmol/L Glucose (74-99) mg/dL Ur Specific [place] 1.050 H (1.001-1.035) Urine Protein 1+ H (Negative) Urine Blood Small H (Negative) Urine WBC 9 H (0-5) /hpf Hyaline Casts 45 H (0-2) /lpf Urine Mucus Rare H (None) /hpf
--- NOTE | 2023-11-18 03:30 | CT ---
EXAM: CT Angiography Chest With Intravenous Contrast CLINICAL HISTORY: ITS.REASON CT Reason: elevated dimer TECHNIQUE: Axial computed tomographic angiography images of the chest with intravenous contrast. CTDI is 29.1 mGy and DLP is 448 mGy-cm. This CT exam was performed using one or more of the following dose reduction techniques: automated exposure control, adjustment of the mA and/or kV according to patient size, and/or use of iterative reconstruction technique. MIP reconstructed images were created and reviewed. COMPARISON: No relevant prior studies available. FINDINGS: Pulmonary arteries: Unremarkable. No pulmonary embolism. Aorta: No acute findings. No thoracic aortic aneurysm. Lungs: Minimal ground-glass infiltrate in the RIGHT upper lobe, correlate for minimal pneumonia. Atelectasis in the lingula. No mass. Pleural space: Unremarkable. No pleural effusion or pneumothorax. Heart: Unremarkable. No cardiomegaly. No significant pericardial effusion. No evidence of RV dysfunction. Bones/joints: No acute fracture. No dislocation. Soft tissues: Unremarkable. Lymph nodes: Unremarkable. No enlarged lymph nodes. Liver: Hepatic steatosis. Kidneys and ureters: LEFT renal cyst measures 8 cm. Other findings: Aortoiliac stent graft. IMPRESSION: Minimal ground-glass infiltrate in the RIGHT upper lobe, correlate for minimal pneumonia.
[2023-11-18] MEDS ORDERED: NALOXONE 0.4 MG/ML 1 ML VIAL IV PRN (03:44)
[2023-11-18 04:41] LABS: Glucose,Whole Blood 99 mg/dL (70-110)
[2023-11-18] MEDS: IPRATROPIUM-ALBUTEROL 3 ML NEB INHALATION SCH (06:24)
[2023-11-18] MEDS: DILTIAZEM ORAL 30 MG TAB PO SCH (07:39)
[2023-11-18] MEDS: QUEtiapine 25 MG TAB PO SCH (07:39)
[2023-11-18] MEDS: guaiFENesin 600 MG TABLET.ER PO SCH (07:39)
[2023-11-18] MEDS: CIT AC PO SCH (07:39)
[2023-11-18] MEDS: DONEPEZIL 5 MG TAB PO SCH (07:39)
[2023-11-18] MEDS: POTASSIUM BICARBONATE PO SCH (07:39)
[2023-11-18] MEDS: FERROUS SULFATE 325 MG TAB PO SCH (07:39)
[2023-11-18] MEDS: METOPROLOL SUCCINATE (ER) 100 MG TAB.ER.24H PO SCH (07:39)
[2023-11-18] MEDS: SENNOSIDES 8.6 MG TAB PO SCH (07:40)
[2023-11-18 07:46] LABS: Glucose,Whole Blood 105 mg/dL (70-110)
[2023-11-18 08:37] LABS: Anisocytosis Slight; HCT 39.9 % (39.0-53.0); HGB 12.4 gm/dL (13.0-17.5); Hypochromasia Moderate; MCHC 31.1 g/dL (31.0-37.0); MCV 106.3 fL (80.0-100.0); Macrocytosis Marked; Mean Platelet Volume 8.2; Platelet Count 111 k/uL (150-450); RBC 3.75 m/uL (4.30-5.90); RDW 16.6 % (11.5-15.5)
[2023-11-18 08:57] LABS: African American GFR (CKD) 87 (>60 ml/min/1.73 sqM); Anion Gap 2 mmol/L; Blood Urea Nitrogen 16 mg/dL (9-20); Calcium 8.2 mg/dL (8.4-10.2); Carbon Dioxide 36 mmol/L (22-30); Chloride 100 mmol/L (98-107); Glucose 93 mg/dL (74-99); Non-African American GFR(CKD) 75 (>60 ml/min/1.73 sqM); Potassium 3.7 mmol/L (3.5-5.1); Sodium 138 mmol/L (137-145)
[2023-11-18] MEDS: ENOXAPARIN 40 MG/0.4 ML SYRINGE SQ SCH (10:02)
[2023-11-18] MEDS: predniSONE 20 MG TAB PO SCH (10:02)
[2023-11-18] MEDS: INSULIN ASPART (NovoLOG) 100 UNIT/ML VIAL SQ SCH (10:26)
[2023-11-18 12:05] LABS: Glucose,Whole Blood 114 mg/dL (70-110)
--- NOTE | 2023-11-18 14:41 | P.CRDCN ---
History of Present Illness History of present illness: HISTORY OF PRESENTING ILLNESS This is a pleasant 83-year-old with past medical history significant for COPD, pulmonary embolism on anticoagulation, CAD with reported previous stenting, hypertension, diabetes mellitus type 2, home oxygen dependence. Patient somewhat of a poor historian and multiple complaints. He states the main reason however that he came into the emergency department was he is not feeling well and somewhat short of breath. He denies any recent changes to his medications. Denies any recent fevers or chills. He states it was a hot day however no excessive diaphoresis. Initial EKG showed normal sinus rhythm with left anterior fascicular block and no significant ST or T wave abnormalities however he had an episode of SVT recurrent with heart rate 130 bpm. this study appear to be a long RP tachycardia. He denies any history of atrial fibrillation or atrial flutter. There are no clear atrial flutter waves noted. REVIEW OF SYSTEMS At the time of my exam: CONSTITUTIONAL: Denies fever or chills. CARDIOVASCULAR: Denies chest pain, +shortness of breath, no orthopnea, PND or palpitations. RESPIRATORY: Denies cough. GASTROINTESTINAL: Denies abdominal pain, diarrhea, constipation, nausea or vomiting. MUSCULOSKELETAL: Denies myalgias. NEUROLOGIC: Denies numbness, tingling or weakness. ENDOCRINE: Denies fatigue, weight change, polydipsia or polyurina. GENITOURINARY: Denies burning, hematuria or urgency with micturation. HEMATOLOGIC: Denies history of anemia or bleeding. PHYSICAL EXAMINATION Vital signs reviewed. CONSTITUTIONAL: No apparent distress. HEENT: Head is normocephalic. Pupils are equal, round. Sclerae anicteric. Mucous membranes of the mouth are moist. No JVD. No carotid bruit. CHEST EXAMINATION: Lungs are clear to auscultation. No chest wall tenderness is noted on palpation or with deep breathing. HEART EXAMINATION: Regular rate and rhythm. S1, S2 heard. No murmurs, gallops or rub. ABDOMEN: Soft, nontender. Positive bowel sounds. EXTREMITIES: 2+ peripheral pulses, no lower extremity edema and no calf tenderness. NEUROLOGIC EXAMINATION: Patient is awake, alert and oriented x3. 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 No clear cut flutter waves acute on chronic respiratory failure Hypertension History of CAD status post apparent stenting Poor recall, likely some component of dementia History of PE on anticoagulation Mildly elevated d-dimer however has been on anticoagulation PLAN patient with multiple vague complaints however most this appears related to her respiratory failure. Appears component of pneumonia however rule out also component of heart failure. Check proBNP. Check 2-D echo to evaluate left ventricular function. Patient does have what appears to be SVT with a long RP and differential includes atrial tachycardia versus AVRT. Change amlodipine the Cardizem and monitor response. Further recommendations to follow. Past Medical History Past Medical History: Coronary Artery Disease (CAD), Diabetes Mellitus, Hyperlipidemia, Hypertension, Prostate Disorder, Pulmonary Embolus (PE) Additional Past Medical History / Comment(s): stents in legs History of Any Multi-Drug Resistant Organisms: None Reported Past Surgical History: Heart Catheterization With Stent Past Anesthesia/Blood Transfusion Reactions: No Reported Reaction Date of Last Stent Placement:: 05/05/18 Past Psychological History: No Psychological Hx Reported Past Alcohol Use History: None Reported Past Drug Use History: None Reported - Past Family History Mother Family Medical History: No Reported History Father Family Medical History: No Reported History Medications and Allergies Home Medications Medication Instructions Recorded Confirmed Type Ferrous Sulfate [Feosol] 325 mg PO DIRECTED 11/17/23 11/18/23 History Melatonin 3 mg PO HS PRN 11/17/23 11/18/23 History Nitroglycerin Sl Tabs [Nitrostat] 0.4 mg SUBLINGUAL Q5M PRN 11/17/23 11/18/23 History Albuterol Sulfate [Albuterol 2 puff PO RT-QID PRN 11/18/23 11/18/23 History Sulfate Hfa] Aspirin EC [Ecotrin Low Dose] 81 mg PO DAILY 11/18/23 11/18/23 History Atorvastatin Calcium [Lipitor] 80 mg PO HS 11/18/23 11/18/23 History Cholecalciferol [Vitamin D3 (25 25 mcg PO DAILY 11/18/23 11/18/23 History Mcg = 1000 Iu)] Docusate [Colace] 100 mg PO BID PRN 11/18/23 11/18/23 History Insulin Glargine,Hum.rec.anlog 20 units SQ DAILY 11/18/23 11/18/23 History [Lantus Solostar Pen] Metoprolol Succinate [Toprol XL] 200 mg PO DAILY 11/18/23 11/18/23 History Pantoprazole Sodium [Protonix] 40 mg PO DAILY 11/18/23 11/18/23 History Rivaroxaban [Xarelto] 15 mg PO DAILY 11/18/23 11/18/23 History Tamsulosin HCl [Flomax] 0.4 mg PO DAILY 11/18/23 11/18/23 History Tiotropium 2.5 Mcg/Puff [Spiriva 2 puff INHALATION RT-DAILY 11/18/23 11/18/23 History Respimat 2.5 Mcg] amLODIPine [Norvasc] 2.5 mg PO DAILY 11/18/23 11/18/23 History lisinopriL 40 mg PO DAILY 11/18/23 11/18/23 History Allergies Allergy/AdvReac Type Severity Reaction Status Date / Time Penicillins Allergy Swelling Verified 11/18/23 10:22 alprazolam [From Xanax] AdvReac Hallucinati Verified 11/18/23 10:22 ons lorazepam AdvReac Hallucinati Verified 11/18/23 10:44 ons meperidine [From Demerol] AdvReac Hallucinati Verified 11/18/23 10:22 ons Physical Exam Vitals: Vital Signs Temp Pulse Resp BP Pulse Ox 11/18/23 12:01 98.6 F 85 18 145/62 93 L 11/18/23 11:31 88 11/18/23 11:24 84 11/18/23 07:00 98.9 F 72 20 149/72 95 11/18/23 06:42 84 17 97 11/18/23 06:36 86 11/18/23 06:24 76 11/18/23 06:17 85 17 144/77 97 11/18/23 06:13 88 L 11/18/23 06:03 85 17 144/77 89 L 11/18/23 04:41 99.4 F 87 19 175/79 94 L 11/18/23 00:30 85 16 129/56 96 11/18/23 00:00 89 16 138/67 96 11/17/23 23:30 137 H 16 135/68 96 11/17/23 23:05 98.4 F 11/17/23 23:00 86 17 135/55 97 11/17/23 22:29 85 11/17/23 22:19 81 11/17/23 22:11 84 16 139/54 92 L 11/17/23 22:00 99.0 F 84 16 160/73 94 L 11/17/23 20:20 102.4 F H 89 18 159/67 95 Intake and Output 11/17/23 11/18/23 11/18/23 22:59 06:59 14:59 Other: Weight 74.843 kg Results 11/18/23 07:46 11/18/23 07:46 Cardiac Enzymes 11/17/23 11/17/23 Range/Units 21:01 21:55 AST 37 (17-59) U/L Troponin I 0.015 (0.000-0.034) ng/mL Coagulation 11/17/23 Range/Units 20:35 PT 11.2 (10.0-12.5) sec APTT 26.0 (22.0-30.0) sec CBC 11/17/23 11/18/23 Range/Units 21:01 07:46 WBC 8.0 7.0 (3.8-10.6) k/uL RBC 3.78 L 3.75 L (4.30-5.90) m/uL Hgb 12.7 L 12.4 L (13.0-17.5) gm/dL Hct 39.2 39.9 (39.0-53.0) % Plt Count 109 L 111 L (150-450) k/uL Comprehensive Metabolic Panel 11/17/23 11/18/23 Range/Units 21:01 07:46 Sodium 138 138 (137-145) mmol/L Potassium 4.2 3.7 (3.5-5.1) mmol/L Chloride 99 100 (98-107) mmol/L Carbon Dioxide 37 H 36 H (22-30) mmol/L BUN 18 16 (9-20) mg/dL Creatinine 1.09 0.93 (0.66-1.25) mg/dL Glucose 112 H 93 (74-99) mg/dL Calcium 8.4 8.2 L (8.4-10.2) mg/dL AST 37 (17-59) U/L ALT 20 (4-49) U/L Alkaline Phosphatase 73 (38-126) U/L Total Protein 6.6 (6.3-8.2) g/dL Albumin 3.6 (3.5-5.0) g/dL Current Medications Generic Name Dose Route Start Last Admin Trade Name Freq PRN Reason Stop Dose Admin Albuterol/Ipratropium 3 ml 11/18/23 03:39 Ipratropium-Albuterol 3 Ml Neb INHALATION RT-QID PRN Shortness Of Breath Or Wheezing Albuterol/Ipratropium 3 ml 11/18/23 08:00 11/18/23 11:09 Ipratropium-Albuterol 3 Ml Neb INHALATION 3 ml RT-QID KENDRA Administration Amlodipine Besylate 2.5 mg 11/19/23 09:00 Amlodipine 2.5 Mg Tab PO DAILY [facility] Aspirin 81 mg 11/19/23 09:00 Aspirin 81 Mg PO DAILY [facility] Atorvastatin Calcium 80 mg 11/18/23 21:00 Atorvastatin 80 Mg Tab PO HS [facility] Enoxaparin Sodium 40 mg 11/18/23 09:00 11/18/23 10:02 Enoxaparin 40 Mg/0.4 Ml Syringe SQ Not Given DAILY [facility] Ferrous Sulfate 325 mg 11/19/23 07:30 Ferrous Sulfate 325 Mg Tab PO 0730 [facility] Levofloxacin 750 mg/ IV 150 mls @ 100 mls/hr 11/18/23 22:00 Solution IVPB Q24H [facility] Protocol Insulin Aspart 0 unit 11/18/23 07:30 11/18/23 12:05 Insulin Aspart (Novolog) 100 Unit/Ml Vial SQ Not Given ACHS [facility] Protocol Insulin Detemir 20 unit 11/19/23 07:00 Insulin Detemir (Levemir) 100 Unit/Ml Syr SQ DAILY@0700 [facility] Lisinopril 40 mg 11/19/23 09:00 Lisinopril 20 Mg Tab PO DAILY [facility] Metoprolol Succinate 200 mg 11/19/23 09:00 Metoprolol Succinate (Er) 100 Mg Tab.Er.24h PO DAILY [facility] Naloxone HCl 0.2 mg 11/18/23 03:44 Naloxone 0.4 Mg/Ml 1 Ml Vial IV Q2M PRN Opioid Reversal Pantoprazole Sodium 40 mg 11/19/23 09:00 Pantoprazole 40 Mg Tablet PO DAILY [facility] Prednisone 40 mg 11/18/23 09:00 11/18/23 10:02 Prednisone 20 Mg Tab PO Not Given DAILY [facility] Tamsulosin HCl 0.4 mg 11/19/23 09:00 Tamsulosin 0.4 Mg Cap.Er.24h PO DAILY KENDRA Intake and Output 11/17/23 11/18/23 11/18/23 22:59 06:59 14:59 Other: Weight 74.843 kg 11/18/23 07:46 11/18/23 07:46
[2023-11-18] MEDS: DILTIAZEM CD 120 MG CAP.ER.24H PO SCH (14:56)
[2023-11-18 19:23] LABS: Glucose,Whole Blood 119 mg/dL (70-110)
[2023-11-18] MEDS: LEVOFLOXACIN 750MG-D5W PMX 750 MG in DEXTROSE/WATER 1 150ML.BAG IVPB SCH (22:44)
[2023-11-18] MEDS: ATORVASTATIN 80 MG TAB PO SCH (22:47)
[2023-11-19] MEDS: IPRATROPIUM-ALBUTEROL 3 ML NEB INHALATION PRN (03:31)
[2023-11-19 05:08] LABS: Glucose,Whole Blood 103 mg/dL (70-110)
[2023-11-19 07:33] LABS: Glucose,Whole Blood 127 mg/dL (70-110)
[2023-11-19] MEDS: FERROUS SULFATE 325 MG TAB PO SCH (07:56)
[2023-11-19] MEDS: INSULIN DETEMIR (LEVEMIR) 100 UNIT/ML SYR SQ SCH (07:57)
[2023-11-19] MEDS ORDERED: NON FORMULARY DRUG (Tiotropium 2.5 Mcg/Puff 10 PUFF Each) INHALATION SCH (08:00)
[2023-11-19] MEDS: TAMSULOSIN 0.4 MG CAP.ER.24H PO SCH (08:45)
[2023-11-19] MEDS: PANTOPRAZOLE 40 MG TABLET PO SCH (08:46)
[2023-11-19] MEDS: lisinopriL 20 MG TAB PO SCH (08:46)
[2023-11-19] MEDS: METOPROLOL SUCCINATE (ER) 100 MG TAB.ER.24H PO SCH (08:48)
[2023-11-19] MEDS: ASPIRIN 81 MG PO SCH (08:49)
[2023-11-19] MEDS ORDERED: amLODIPine 2.5 MG TAB PO SCH (09:00)
[2023-11-19 10:51] LABS: Basophils # (A) 0.01 X 10*3/uL (0.00-0.10); Basophils % (A) 0.2 %; Eosinophils # (A) 0.01 X 10*3/uL (0.04-0.35); Eosinophils % (A) 0.2 %; HCT 36.5 % (39.6-50.0); HGB 11.3 g/dL (13.0-17.0); Lymphocytes # (A) 1.08 X 10*3/uL (0.90-5.00); Lymphocytes % (A) 20.8 %; MCH 32.3 pg (27.0-32.0); MCV 104.3 FL (80.0-97.0); Mean Platelet Volume 9.5 FL (9.5-12.2); Monocytes # (A) 0.64 X 10*3/uL (0.20-1.00); Monocytes % (A) 12.4 %; NRBC Per 100 WBC 0 X 10*3/uL (0.00-0.01); Neutrophils # (A) 3.41 X 10*3/uL (1.80-7.70); Neutrophils % (A) 65.8 %; Platelet Count 102 X 10*3/uL (140-440); RDW 15.9 % (11.5-14.5); WBC 5.18 X 10*3/uL (4.50-10.00)
[2023-11-19 11:38] LABS: ALT 13 U/L (10-49); AST 23 U/L (14-35); Albumin 3.5 g/dL (3.8-4.9); Albumin/Globulin Ratio 1.35 Ratio (1.60-3.17); Alkaline Phosphatase 78 U/L (41-126); Blood Urea Nitrogen 13.1 mg/dL (9.0-27.0); Calcium 8.7 mg/dL (8.7-10.3); Carbon Dioxide 31.6 mmol/L (21.6-31.8); Chloride 98 mmol/L (96-109); Globulin 2.6 g/dL (1.6-3.3); Glucose 92 mg/dL (70-110); Potassium 3.7 mmol/L (3.5-5.5); Sodium 141 mmol/L (135-145); Total Bilirubin 0.5 mg/dL (0.3-1.2); Total Protein 6.1 g/dL (6.2-8.2)
[2023-11-19 12:03] LABS: Glucose,Whole Blood 143 mg/dL (70-110)
--- NOTE | 2023-11-19 13:04 | P.PN ---
Subjective HISTORY OF PRESENT ILLNESS: This is a pleasant 83-year-old with past medical history significant for COPD, pulmonary embolism on anticoagulation, CAD with reported previous stenting, hypertension, diabetes mellitus type 2, home oxygen dependence. Patient somewhat of a poor historian and multiple complaints. He states the main reason however that he came into the emergency department was he is not feeling well and somewhat short of breath. He denies any recent changes to his medications. Denies any recent fevers or chills. He states it was a hot day however no excessive diaphoresis. Initial EKG showed normal sinus rhythm with left an terior fascicular block and no significant ST or T wave abnormalities however he had an episode of SVT recurrent with heart rate 130 bpm. this study appear to be a long RP tachycardia. He denies any history of atrial fibrillation or atrial flutter. There are no clear atrial flutter waves noted. 11/19/2023 Patient examined this morning in the emergency room. Patient currently denies chest pain or pressure. He denies shortness of breath. No reported further episodes of SVT. Vital signs are stable. 2D echo pending. PHYSICAL EXAM: VITAL SIGNS: Reviewed. GENERAL: Well-developed in no acute distress. NECK: Supple. No JVD or thyromegaly LUNGS: Respirations even and unlabored. Lungs with mild expiratory wheezing HEART: Regular rate and rhythm. S1 and S2 heard. EXTREMITIES: Normal range of motion. No clubbing or cyanosis. Peripheral pulses intact. 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 No clear cut flutter waves acute on chronic respiratory failure Hypertension History of CAD status post apparent stenting Poor recall, likely some component of dementia History of PE on anticoagulation Mildly elevated d-dimer however has been on anticoagulation PLAN: 2D echo has been ordered. Await results. Continue current cardiac medications If 2D echo does not reveal any significant abnormalities, no further inpatient recommendations from a cardiac standpoint Nurse practitioner note has been reviewed by physician. Signing provider agrees with the documented findings, assessment, and plan of care documented by VENDOR ANALYST as a scribe. Objective - Vital Signs Vital signs: Vital Signs Temp 98.1 F 11/19/23 08:05 Pulse 72 11/19/23 12:39 Resp 18 11/19/23 12:39 BP 148/71 11/19/23 12:39 Pulse Ox 93 L 11/19/23 12:39 FiO2 Intake & Output 11/18/23 11/19/23 11/19/23 18:59 06:59 18:59 Weight 74.843 kg - Labs CBC & Chem 7: 11/19/23 06:22 11/19/23 06:22 Labs: Abnormal Lab Results - Last 24 Hours (Table) 11/18/23 11/18/23 11/19/23 Range/Units 07:46 19:21 06:22 RBC 3.50 L (4.40-5.60) X 10*6/uL Hgb 11.3 L (13.0-17.0) g/dL Hct 36.5 L (39.6-50.0) % MCV 104.3 H (80.0-97.0) FL MCH 32.3 H (27.0-32.0) pg MCHC 31.0 L (32.0-37.0) g/dL RDW 15.9 H (11.5-14.5) % Plt Count 102 L (140-440) X 10*3/uL Eosinophils # 0.01 L (0.04-0.35) X 10*3/uL POC Glucose (mg/dL) 119 H (70-110) mg/dL NT-Pro-B Natriuret Pep 1075 H (0-450) pg/mL Total Protein (6.2-8.2) g/dL Albumin (3.8-4.9) g/dL Albumin/Globulin Ratio (1.60-3.17) Ratio 11/19/23 11/19/23 11/19/23 Range/Units 06:22 07:32 12:02 RBC (4.40-5.60) X 10*6/uL Hgb (13.0-17.0) g/dL Hct (39.6-50.0) % MCV (80.0-97.0) FL MCH (27.0-32.0) pg MCHC (32.0-37.0) g/dL RDW (11.5-14.5) % Plt Count (140-440) X 10*3/uL Eosinophils # (0.04-0.35) X 10*3/uL POC Glucose (mg/dL) 127 H 143 H (70-110) mg/dL NT-Pro-B Natriuret Pep (0-450) pg/mL Total Protein 6.1 L (6.2-8.2) g/dL Albumin 3.5 L (3.8-4.9) g/dL Albumin/Globulin Ratio 1.35 L (1.60-3.17) Ratio Microbiology - Last 24 Hours (Table) 11/17/23 20:25 Blood Culture - Preliminary Blood 11/17/23 20:20 Blood Culture - Preliminary Blood
[2023-11-19] MEDS: NICOTINE 21MG/24HR PATCH TRANSDERM SCH (15:55)
[2023-11-19 16:38] LABS: Glucose,Whole Blood 90 mg/dL (70-110)
[2023-11-19] MEDS: hydrOXYzine HCL 25 MG TAB PO PRN (16:58)
--- NOTE | 2023-11-19 17:56 | P.PN ---
Subjective Progress Note Date: 11/19/23 Subjective: Patient seen and examined at bedside. No acute events overnight. Starting to feel better. Pertinent positives and negatives as discussed above, a complete review of systems was performed and all other systems are negative. Vitals: Signs Reviewed Physical Exam: General: nontoxic, no distress, appears at stated age Derm: warm, dry, intact Head: atraumatic, normocephalic, symmetric Eyes: EOMI, no lid lag, anicteric sclera Mouth: no lip lesion, mucus membranes moist Cardiovascular: S1 S2 reg, no murmur, rubs, or gallops Lungs: CTA bilateral, no rhonchi, no rales, no accessory muscle use Abdominal: soft, non-tender to palpataion, no appreciable organomegaly Extremities: no gross muscle atrophy, no edema, no contractures Neuro: Alert, Oriented, CNII-XII grossly intact, gait normal Psych: well appearing, appropriate affect Data Received Today: Pertinent Labs: Hgb 11.3, platelet 102, total protein 6.1., Albumin 3.5 glucose 92, potassium 3.7, creatinine 1, blood sugars range between 90-1 43 Imaging: No new images Assessment and Plan: 83-year-old male with a history of COPD, hypertension, and diabetes mellitus came to the ER with complaint of shortness of breath and low-grade fever. Acute hypoxic respiratory failure likely secondary to acute COPD exacerbation Nicotine dependence Long-term smoking history: 1 pack/day x 60 years Order DuoNebs [id number] and as needed ct Prednisone 40 mg PO qd Continue with oxygen therapy via nasal cannula with O2 saturation target of 88 to 92% Lowered nasal cannula oxygen to 6 L Continue monitoring O2 sat -Nicotine patch 21 mg daily community-acquired lobar pneumonia Chest x-ray shows COPD with patchy opacity at the left inferior ingula Continue with IV levofloxacin 750 mg q24h (Penicillin allergy) Sputum culture pending Blood culture negative x 2 Legionella antigen test pending Curb 65: 2 points; moderate risk CHF exacerbation, less likely AVRT versus atrial tachycardia Cardiology note reviewed, change amlodipine the Cardizem 120mg PO daily - monitoring response., Continue with metoprolol 200 mg daily C/w Cardiac monitoring -Echocardiogram pending Hypertension lisinopril 40 mg p.o. daily History of CAD -atorvastatin 80 mg p.o. nightly, aspirin 81 mg p.o. daily BPH Resume Flomax 0.4 mg p.o. daily Anxiety Hydroxyzine 25 mg p.o. q8HR as needed Macrocytic anemia, likely due to poor nutrition Hemoglobin 12.7, hematocrit 39.2, MCV 103.7 Check RBC folate and vitamin B12 Thrombocytopenia Platelet 109, PT 11.2, INR 1.0, APTT 26 No active bleeding Continue monitor platelet counts Diabetes mellitus, likely type II Levemir 20 units subcu Started on sliding scale short acting insulin, monitor for hypoglycemia History of PE -Patient noncompliant with his anticoagulation DVT prophylaxis: Lovenox 40 mg subcu daily F: N/A E: Replete as needed N: Consistent carbohydrate A: N/A DVT ppx: Lovenox 40 subcu Code status: Full Anticipated discharge place: Pending clinical course Anticipated discharge time: Pending clinical course I have seen and evaluated the patient today. Discussed with the resident and agree with the residents finding and plan as documented in the resident's note. Changes highlighted in blue font. Objective - Vital Signs Vital signs: Vital Signs Temp 98.5 F 11/19/23 02:01 Pulse 89 11/19/23 06:27 Resp 20 11/19/23 06:27 BP 176/78 11/19/23 06:27 Pulse Ox 92 L 11/19/23 06:27 FiO2 Intake & Output 11/18/23 11/18/23 11/19/23 06:59 18:59 06:59 Weight 74.843 kg 74.843 kg - Labs CBC & Chem 7: 11/19/23 06:22 11/19/23 06:22 Labs: Abnormal Lab Results - Last 24 Hours (Table) 11/18/23 11/18/23 11/18/23 Range/Units 07:46 07:46 07:46 RBC 3.75 L (4.30-5.90) m/uL Hgb 12.4 L (13.0-17.5) gm/dL MCV 106.3 H (80.0-100.0) fL RDW 16.6 H (11.5-15.5) % Plt Count 111 L (150-450) k/uL Macrocytosis Marked A Carbon Dioxide 36 H (22-30) mmol/L POC Glucose (mg/dL) (70-110) mg/dL Calcium 8.2 L (8.4-10.2) mg/dL NT-Pro-B Natriuret Pep 1075 H (0-450) pg/mL 11/18/23 11/18/23 Range/Units 12:04 19:21 RBC (4.30-5.90) m/uL Hgb (13.0-17.5) gm/dL MCV (80.0-100.0) fL RDW (11.5-15.5) % Plt Count (150-450) k/uL Macrocytosis Carbon Dioxide (22-30) mmol/L POC Glucose (mg/dL) 114 H 119 H (70-110) mg/dL Calcium (8.4-10.2) mg/dL NT-Pro-B Natriuret Pep (0-450) pg/mL Microbiology - Last 24 Hours (Table) 11/17/23 20:25 Blood Culture - Preliminary Blood 11/17/23 20:20 Blood Culture - Preliminary Blood
[2023-11-19 21:46] LABS: Glucose,Whole Blood 119 mg/dL (70-110)
[2023-11-20 06:24] LABS: Anisocytosis Slight; Basophils % (A) 0 %; Eosinophils % (A) 0 %; HCT 36.7 % (39.0-53.0); HGB 11.8 gm/dL (13.0-17.5); Hypochromasia Slight; Lymphocytes # (A) 0.9 k/uL (1.0-4.8); Lymphocytes % (A) 17 %; MCH 33.1 pg (25.0-35.0); MCV 103.3 fL (80.0-100.0); Macrocytosis Moderate; Monocytes # (A) 0.5 k/uL (0-1.0); Monocytes % (A) 9 %; Neutrophils # (A) 3.8 k/uL (1.3-7.7); Neutrophils % (A) 71 %; Platelet Count 127 k/uL (150-450); RBC 3.55 m/uL (4.30-5.90); RDW 16.5 % (11.5-15.5); WBC 5.4 k/uL (3.8-10.6)
[2023-11-20 06:41] LABS: ALT 15 U/L (4-49); AST 26 U/L (17-59); African American GFR (CKD) 82 (>60 ml/min/1.73 sqM); Albumin 3.3 g/dL (3.5-5.0); Albumin/Globulin Ratio 1.2; Alkaline Phosphatase 66 U/L (38-126); Anion Gap 1 mmol/L; Blood Urea Nitrogen 19 mg/dL (9-20); Calcium 9.1 mg/dL (8.4-10.2); Carbon Dioxide 38 mmol/L (22-30); Chloride 99 mmol/L (98-107); Globulin 2.8 g/dL; Glucose 83 mg/dL (74-99); Non-African American GFR(CKD) 71 (>60 ml/min/1.73 sqM); Potassium 4.3 mmol/L (3.5-5.1); Sodium 138 mmol/L (137-145); Total Bilirubin 0.6 mg/dL (0.2-1.3); Total Protein 6.1 g/dL (6.3-8.2)
[2023-11-20 07:25] LABS: Glucose,Whole Blood 74 mg/dL (70-110)
--- NOTE | 2023-11-20 10:31 | P.PN ---
Subjective HISTORY OF PRESENT ILLNESS: This is a pleasant 83-year-old with past medical history significant for COPD, pulmonary embolism on anticoagulation, CAD with reported previous stenting, hypertension, diabetes mellitus type 2, home oxygen dependence. Patient somewhat of a poor historian and multiple complaints. He states the main reason however that he came into the emergency department was he is not feeling well and somewhat short of breath. He denies any recent changes to his medications. Denies any recent fevers or chills. He states it was a hot day however no excessive diaphoresis. Initial EKG showed normal sinus rhythm with left an terior fascicular block and no significant ST or T wave abnormalities however he had an episode of SVT recurrent with heart rate 130 bpm. this study appear to be a long RP tachycardia. He denies any history of atrial fibrillation or atrial flutter. There are no clear atrial flutter waves noted. 11/19/2023 Patient examined this morning in the emergency room. Patient currently denies chest pain or pressure. He denies shortness of breath. No reported further episodes of SVT. Vital signs are stable. 2D echo pending. 11/19 the patient denies any significant chest pain or pressure. No significant SVT. Remains in sinus rhythm. Still mild shortness breath however stable. Still awaiting 2-D echo. PHYSICAL EXAM: VITAL SIGNS: Reviewed. GENERAL: Well-developed in no acute distress. NECK: Supple. No JVD or thyromegaly LUNGS: Respirations even and unlabored. Lungs with mild expiratory wheezing HEART: Regular rate and rhythm. S1 and S2 heard. EXTREMITIES: Normal range of motion. No clubbing or cyanosis. Peripheral pulses intact. 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 No clear cut flutter waves acute on chronic respiratory failure Hypertension History of CAD status post apparent stenting Poor recall, likely some component of dementia History of PE on anticoagulation Mildly elevated d-dimer however has been on anticoagulation PLAN: 2D echo has been ordered. Await results. Continue current cardiac medications If 2D echo does not reveal any significant abnormalities, no further inpatient recommendations from a cardiac standpoint continue with diltiazem for SVT. Objective - Vital Signs Vital signs: Vital Signs Temp 98 F 11/20/23 07:41 Pulse 67 11/20/23 07:41 Resp 18 11/20/23 07:41 BP 168/69 11/20/23 07:41 Pulse Ox 94 L 11/20/23 07:41 FiO2 Intake & Output 11/19/23 11/20/23 11/20/23 18:59 06:59 18:59 Intake Total 730 Balance 730 Intake: Intake, IV Titration 150 Amount Levofloxacin 750Mg-D5w 150 Pmx 750 mg In Dextrose/ Water 1 150ml.bag @ 100 mls/hr IVPB Q24H [facility] Rx#: [id number] Oral 580 Other: Voiding Method Toilet # Voids 1 # Bowel Movements 0 - Labs CBC & Chem 7: 11/20/23 05:49 11/20/23 05:49 Labs: Abnormal Lab Results - Last 24 Hours (Table) 11/19/23 11/19/23 11/19/23 Range/Units 06:22 06:22 12:02 RBC 3.50 L (4.40-5.60) X 10*6/uL Hgb 11.3 L (13.0-17.0) g/dL Hct 36.5 L (39.6-50.0) % MCV 104.3 H (80.0-97.0) FL MCH 32.3 H (27.0-32.0) pg MCHC 31.0 L (32.0-37.0) g/dL RDW 15.9 H (11.5-14.5) % Plt Count 102 L (140-440) X 10*3/uL Lymphocytes # (1.0-4.8) k/uL Eosinophils # 0.01 L (0.04-0.35) X 10*3/uL Carbon Dioxide (22-30) mmol/L POC Glucose (mg/dL) 143 H (70-110) mg/dL Total Protein 6.1 L (6.2-8.2) g/dL Albumin 3.5 L (3.8-4.9) g/dL Albumin/Globulin Ratio 1.35 L (1.60-3.17) Ratio 11/19/23 11/20/23 11/20/23 Range/Units 21:45 05:49 05:49 RBC 3.55 L (4.40-5.60) X 10*6/uL Hgb 11.8 L (13.0-17.0) g/dL Hct 36.7 L (39.6-50.0) % MCV 103.3 H (80.0-97.0) FL MCH (27.0-32.0) pg MCHC (32.0-37.0) g/dL RDW 16.5 H (11.5-14.5) % Plt Count 127 L (140-440) X 10*3/uL Lymphocytes # 0.9 L (1.0-4.8) k/uL Eosinophils # (0.04-0.35) X 10*3/uL Carbon Dioxide 38 H (22-30) mmol/L POC Glucose (mg/dL) 119 H (70-110) mg/dL Total Protein 6.1 L (6.2-8.2) g/dL Albumin 3.3 L (3.8-4.9) g/dL Albumin/Globulin Ratio (1.60-3.17) Ratio Microbiology - Last 24 Hours (Table) 11/17/23 20:25 Blood Culture - Preliminary Blood 11/17/23 20:20 Blood Culture - Preliminary Blood
[2023-11-20] MEDS: LEVOFLOXACIN 750 MG TAB PO SCH (11:20)
[2023-11-20 12:51] LABS: Glucose,Whole Blood 122 mg/dL (70-110)
--- NOTE | 2023-11-20 16:14 | P.PN ---
Subjective Progress Note Date: 11/20/23 Subjective: Patient seen and examined at bedside. No acute events overnight. Starting to feel better. Pertinent positives and negatives as discussed above, a complete review of systems was performed and all other systems are negative. Vitals: Signs Reviewed Physical Exam: General: nontoxic, no distress, appears at stated age Derm: warm, dry, intact Head: atraumatic, normocephalic, symmetric Eyes: EOMI, no lid lag, anicteric sclera Mouth: no lip lesion, mucus membranes moist Cardiovascular: S1 S2 reg, no murmur, rubs, or gallops Lungs: CTA bilateral, no rhonchi, no rales, no accessory muscle use Abdominal: soft, non-tender to palpataion, no appreciable organomegaly Extremities: no gross muscle atrophy, no edema, no contractures Neuro: Alert, Oriented, CNII-XII grossly intact, gait normal Psych: well appearing, appropriate affect Data Received Today: Pertinent Labs: Hemoglobin 11.8, platelet 127, creatinine 0.98, blood sugars range between 74-1 36 Imaging: No new images Assessment and Plan: 83-year-old male with a history of COPD, hypertension, and diabetes mellitus came to the ER with complaint of shortness of breath and low-grade fever. Acute hypoxic respiratory failure likely secondary to acute COPD exacerbation Nicotine dependence Long-term smoking history: 1 pack/day x 60 years Order DuoNebs [id number] and as needed ct Prednisone 40 mg PO qd Continue with oxygen therapy via nasal cannula with O2 saturation target of 88 to 92% Lowered nasal cannula oxygen to 5 L. Will continue to wean off oxygen Continue monitoring O2 sat -Nicotine patch 21 mg daily Community-acquired lobar pneumonia Chest x-ray shows COPD with patchy opacity at the left inferior ingula Switched IV levofloxacin 750 mg tomorrow oral levofloxacin 750 mg PO daily Sputum culture pending Blood culture negative x 2 Legionella antigen test pending Curb 65: 2 points; moderate risk CHF exacerbation, less likely AVRT versus atrial tachycardia Cardiology note reviewed, change amlodipine the Cardizem 120mg PO daily - monitoring response., Continue with metoprolol 200 mg daily. C/w Cardiac monitoring -Echocardiogram results pending Hypertension lisinopril 40 mg p.o. daily History of CAD -atorvastatin 80 mg p.o. nightly, aspirin 81 mg p.o. daily BPH Resume Flomax 0.4 mg p.o. daily Anxiety Hydroxyzine 25 mg p.o. q8HR as needed Macrocytic anemia, likely due to poor nutrition Hemoglobin 12.7, hematocrit 39.2, MCV 103.7 Check RBC folate and vitamin B12 Thrombocytopenia Platelet 109, PT 11.2, INR 1.0, APTT 26 No active bleeding Continue monitor platelet counts Diabetes mellitus, likely type II Levemir 20 units subcu Started on sliding scale short acting insulin, monitor for hypoglycemia History of PE -Patient noncompliant with his anticoagulation F: N/A E: Replete as needed N: Consistent carbohydrate A: N/A DVT ppx: Lovenox 40 subcu Code status: Full Disposition -Home likely tomorrow I have seen and evaluated the patient today. Discussed with the resident and agree with the residents finding and plan as documented in the resident's note. Changes highlighted in blue font. Objective - Vital Signs Vital signs: Vital Signs Temp 98.4 F 11/20/23 13:22 Pulse 69 11/20/23 13:22 Resp 18 11/20/23 13:22 BP 163/71 11/20/23 13:22 Pulse Ox 90 L 11/20/23 13:22 FiO2 Intake & Output 11/19/23 11/20/23 11/20/23 18:59 06:59 18:59 Intake Total 730 Balance 730 Intake: Intake, IV Titration 150 Amount Levofloxacin 750Mg-D5w 150 Pmx 750 mg In Dextrose/ Water 1 150ml.bag @ 100 mls/hr IVPB Q24H [facility] Rx#: [id number] Oral 580 Other: Voiding Method Toilet # Voids 1 # Bowel Movements 0 - Labs CBC & Chem 7: 11/20/23 05:49 11/20/23 05:49 Labs: Abnormal Lab Results - Last 24 Hours (Table) 11/19/23 11/20/23 11/20/23 Range/Units 21:45 05:49 05:49 RBC 3.55 L (4.30-5.90) m/uL Hgb 11.8 L (13.0-17.5) gm/dL Hct 36.7 L (39.0-53.0) % MCV 103.3 H (80.0-100.0) fL RDW 16.5 H (11.5-15.5) % Plt Count 127 L (150-450) k/uL Lymphocytes # 0.9 L (1.0-4.8) k/uL Carbon Dioxide 38 H (22-30) mmol/L POC Glucose (mg/dL) 119 H (70-110) mg/dL Total Protein 6.1 L (6.3-8.2) g/dL Albumin 3.3 L (3.5-5.0) g/dL 11/20/23 Range/Units 12:43 RBC (4.30-5.90) m/uL Hgb (13.0-17.5) gm/dL Hct (39.0-53.0) % MCV (80.0-100.0) fL RDW (11.5-15.5) % Plt Count (150-450) k/uL Lymphocytes # (1.0-4.8) k/uL Carbon Dioxide (22-30) mmol/L POC Glucose (mg/dL) 122 H (70-110) mg/dL Total Protein (6.3-8.2) g/dL Albumin (3.5-5.0) g/dL Microbiology - Last 24 Hours (Table) 11/17/23 20:25 Blood Culture - Preliminary Blood 11/17/23 20:20 Blood Culture - Preliminary Blood
[2023-11-20 16:59] LABS: Glucose,Whole Blood 136 mg/dL (70-110)
[2023-11-20 20:11] LABS: Glucose,Whole Blood 216 mg/dL (70-110)
[2023-11-21] MEDS ORDERED: LEVOFLOXACIN 750MG-D5W PMX 750 MG in DEXTROSE/WATER 1 150ML.BAG IVPB SCH (03:00)
[2023-11-21 07:36] LABS: Glucose,Whole Blood 122 mg/dL (70-110)
[2023-11-21 08:04] LABS: Anisocytosis Slight; Basophils % (A) 0 %; Eosinophils % (A) 0 %; HCT 39.7 % (39.0-53.0); HGB 12.8 gm/dL (13.0-17.5); Hypochromasia Slight; Lymphocytes # (A) 1.1 k/uL (1.0-4.8); Lymphocytes % (A) 18 %; MCHC 32.1 g/dL (31.0-37.0); Macrocytosis Moderate; Mean Platelet Volume 7.4; Monocytes # (A) 0.5 k/uL (0-1.0); Monocytes % (A) 8 %; Neutrophils # (A) 4.3 k/uL (1.3-7.7); Neutrophils % (A) 72 %; Platelet Count 177 k/uL (150-450); RBC 3.86 m/uL (4.30-5.90); RDW 16.5 % (11.5-15.5)
[2023-11-21 08:30] LABS: ALT 18 U/L (4-49); AST 28 U/L (17-59); African American GFR (CKD) 72 (>60 ml/min/1.73 sqM); Albumin 3.4 g/dL (3.5-5.0); Albumin/Globulin Ratio 1.1; Alkaline Phosphatase 66 U/L (38-126); Blood Urea Nitrogen 23 mg/dL (9-20); Calcium 9.1 mg/dL (8.4-10.2); Chloride 100 mmol/L (98-107); Glucose 110 mg/dL (74-99); Non-African American GFR(CKD) 62 (>60 ml/min/1.73 sqM); Potassium 3.9 mmol/L (3.5-5.1); Sodium 140 mmol/L (137-145); Total Bilirubin 0.5 mg/dL (0.2-1.3); Total Protein 6.4 g/dL (6.3-8.2)
[2023-11-21 08:37] LABS: Anion Gap 3 mmol/L; Carbon Dioxide 37 mmol/L (22-30)
--- NOTE | 2023-11-21 10:42 | CA ---
Transthoracic Echo Report Name: Rommel Pierce Age: 83 Gender: M : 1940 Exam Date: 11/20/2023 13:46 Exam Location: [place] [facility] Ht (in): 69 Wt (lb): 165 Ordering Physician: Gordon Mcdonald DO ([email or web address]) Attending/Referring Phys: [place]ia Technician Antoinette Ziegler RDCS Procedure CPT: Indications: arrhythmia Cardiac Hx: Technical Quality: Fair Contrast 1: Total Dose (mL): Contrast 2: Total Dose (mL): MEASUREMENTS (Male / Female) Normal Values 2D ECHO LV Diastolic Diameter PLAX 4.7 cm 4.2 - 5.9 / 3.9 - 5.3 cm LV Systolic Diameter PLAX 3.3 cm IVS Diastolic Thickness 1.3 cm 0.6 - 1.0 / 0.6 - 0.9 cm LVPW Diastolic Thickness 1.4 cm 0.6 - 1.0 / 0.6 - 0.9 cm LV Relative Wall Thickness 0.6 RV Internal Dim ED PLAX 2.1 cm LA Volume 84.7 cm??? 18 - 58 / 22 - 52 cm??? LA Volume Index 44.2 cm???/m??? 16 - 28 cm???/m??? M-MODE Aortic Root Diameter MM 3.4 cm LA Systolic Diameter MM 3.8 cm LA Ao Ratio MM 1.1 AV Cusp Separation MM 1.6 cm DOPPLER LVOT Peak Velocity 107.1 cm/s LVOT Peak Gradient 4.6 mmHg LVOT Velocity Time Integral 24.9 cm MV Area PHT 4.1 cm??? Mitral E Point Velocity 87.0 cm/s Mitral A Point Velocity 121.6 cm/s Mitral E to A Ratio 0.7 MV Deceleration Time 186.5 ms MV E' Velocity 4.9 cm/s Mitral E to MV E' Ratio 17.6 TR Peak Velocity 210.1 cm/s TR Peak Gradient 17.6 mmHg Right Ventricular Systolic Press 21.3 mmHg FINDINGS Left Ventricle Mildly increased left ventricular wall thickness. Left ventricular cavity size normal. Normal left ventricular systolic function with no obvious regional wall motion abnormalities. Left ventricular ejection fraction is estimated at 55 %. Grade 2 diastolic dysfunction. Right Ventricle Normal right ventricular size and function. Right ventricular systolic pressure within normal limits. Right Atrium Normal right atrial size. Left Atrium Severely increased left atrial volume. Mitral Valve Structurally normal mitral valve. Mitral valve thickened. Mild mitral annular calcification. Mild mitral regurgitation. Aortic Valve Trileaflet aortic valve. Aortic valve sclerosis. Tricuspid Valve Structurally normal tricuspid valve. Mild tricuspid regurgitation. Pulmonic Valve Structurally normal pulmonic valve. Trace pulmonic regurgitation. Pericardium No pericardial effusion. Echo free space anterior to the right ventricle likely represents a fat pad. Aorta Normal size aortic root and proximal ascending aorta. CONCLUSIONS Normal LV size and systolic function. Mild concentric LVH. Mild diastolic dysfunction. Enlarged left atrium. Mitral annular calcification and aortic valve sclerosis without restriction. Mild mitral and tricuspid insufficiency. No significant pulmonary hypertension. No pericardial effusion. Probable fat pad Previewed by: Dr. Josue Myles MD (Electronically Signed) Final Date: 21 November 2023 10:42
[2023-11-21] MEDS ORDERED: ONDANSETRON 4 MG/2 ML VIAL IVP PRN (10:43)
--- NOTE | 2023-11-21 12:02 | P.PN ---
Subjective HISTORY OF PRESENT ILLNESS: This is a pleasant 83-year-old with past medical history significant for COPD, pulmonary embolism on anticoagulation, CAD with reported previous stenting, hypertension, diabetes mellitus type 2, home oxygen dependence. Patient somewhat of a poor historian and multiple complaints. He states the main reason however that he came into the emergency department was he is not feeling well and somewhat short of breath. He denies any recent changes to his medications. Denies any recent fevers or chills. He states it was a hot day however no excessive diaphoresis. Initial EKG showed normal sinus rhythm with left an terior fascicular block and no significant ST or T wave abnormalities however he had an episode of SVT recurrent with heart rate 130 bpm. this study appear to be a long RP tachycardia. He denies any history of atrial fibrillation or atrial flutter. There are no clear atrial flutter waves noted. 11/19/2023 Patient examined this morning in the emergency room. Patient currently denies chest pain or pressure. He denies shortness of breath. No reported further episodes of SVT. Vital signs are stable. 2D echo pending. 11/19 the patient denies any significant chest pain or pressure. No significant SVT. Remains in sinus rhythm. Still mild shortness breath however stable. Still awaiting 2-D echo. 11/20 patient examined this morning at the bedside. Patient currently denies chest pain or pressure. He denies shortness of breath. Vital signs are stable.echocardiogram completed revealing ejection fraction 55%, mild MR PHYSICAL EXAM: VITAL SIGNS: Reviewed. GENERAL: Well-developed in no acute distress. NECK: Supple. No JVD or thyromegaly LUNGS: Respirations even and unlabored. Lungs diminished bilaterally HEART: Regular rate and rhythm. S1 and S2 heard. EXTREMITIES: Normal range of motion. No clubbing or cyanosis. Peripheral pulses intact. 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 No clear cut flutter waves acute on chronic respiratory failure Hypertension History of CAD status post apparent stenting Poor recall, likely some component of dementia History of PE on anticoagulation Mildly elevated d-dimer however has been on anticoagulation PLAN: continue current cardiac medications No further inpatient recommendations from a cardiac standpoint We'll sign off. Please reconsult if needed. Nurse practitioner note has been reviewed by physician. Signing provider agrees with the documented findings, assessment, and plan of care documented by [employer] as a scribe. Objective - Vital Signs Vital signs: Vital Signs Temp 98.2 F 11/21/23 07:55 Pulse 72 11/21/23 08:07 Resp 19 11/21/23 07:55 BP 171/75 11/21/23 07:55 Pulse Ox 90 L 11/21/23 07:55 FiO2 Intake & Output 11/20/23 11/21/23 11/21/23 18:59 06:59 18:59 Intake Total 1080 Output Total 500 Balance 1080 -500 Intake: Oral 1080 Output: Urine 500 Other: Voiding Method Toilet # Voids 4 1 # Bowel Movements 0 - Labs CBC & Chem 7: 11/21/23 07:24 11/21/23 07:24 Labs: Abnormal Lab Results - Last 24 Hours (Table) 11/20/23 11/20/23 11/20/23 Range/Units 12:43 16:57 20:09 RBC (4.30-5.90) m/uL Hgb (13.0-17.5) gm/dL MCV (80.0-100.0) fL RDW (11.5-15.5) % Carbon Dioxide (22-30) mmol/L BUN (9-20) mg/dL Glucose (74-99) mg/dL POC Glucose (mg/dL) 122 H 136 H 216 H (70-110) mg/dL Albumin (3.5-5.0) g/dL 11/21/23 11/21/23 11/21/23 Range/Units 07:24 07:24 07:28 RBC 3.86 L (4.30-5.90) m/uL Hgb 12.8 L (13.0-17.5) gm/dL MCV 103.0 H (80.0-100.0) fL RDW 16.5 H (11.5-15.5) % Carbon Dioxide 37 H (22-30) mmol/L BUN 23 H (9-20) mg/dL Glucose 110 H (74-99) mg/dL POC Glucose (mg/dL) 122 H (70-110) mg/dL Albumin 3.4 L (3.5-5.0) g/dL Microbiology - Last 24 Hours (Table) 11/17/23 20:25 Blood Culture - Preliminary Blood 11/17/23 20:20 Blood Culture - Preliminary Blood
[2023-11-21 12:33] LABS: Glucose,Whole Blood 146 mg/dL (70-110)
[2023-11-21 13:20] VITALS: BP 156/77; RESP 18; TEMP 98
--- NOTE | 2023-11-21 14:27 | P.DS ---
Providers Date of admission: 11/18/23 03:48 Expected date of discharge: 11/21/23 Attending physician: Millicent Gay MD Primary care physician: [facility] Hospital Course: Discharge Diagnosis: Acute hypoxic respiratory failure likely secondary to acute COPD exacerbation Community-acquired pneumonia Nicotine dependence CHF exacerbation, less likely AVRT versus atrial tachycardia Hypertension History of CAD BPH Anxiety Macrocytic anemia thrombocytopenia Type 2 Diabetes History of Pulmonary Embolism Hospital Course: Patient is a 83-year-old male with past medical history of COPD with chronic hypoxic resp failure on unknown amounts of home oxygen therapy, type 2 diabetes, hypertension, CAD, history of PE, presents to the ER with 1-2 days of shortness of breath. Patient stated that his shortness of breath started gradually and got worse towards the evening which prompted him to call EMS. Patient reports non-exertional shortness of breath associated with a dry cough and mild fever. Patient reports no other alleviating or exacerbating factors. He denies chest comfort. Denies hemoptysis. Patient denies orthopnea, LE swelling, and PND. Denies recent travel or hospitalization. Patient reports using home oxygen through nasal cannula but unsure of how much oxygen he uses. Patient reports previous episode of shortness of breath which resulted in hospitalization 5 to 6 months ago for a cause not known to hime. Patient is also not completely sure of his status on CAD and PE history but states that he underwent PCI stenting 1 year ago. Patient denies headaches, dizziness, blurry vision, abdominal pain, constipation, diarrhea, urinary incontinence or other issues, and weakness or numbness in upper and lower extremities. Chest x-ray done in the ER shows COPD with patchy opacity, possible developing pneumonia at the left inferior ingula. CT angiogram PE study revealed findings of minimal right upper lobe pneumonia. EKG done at 20:51 in ER shows sinus rhythm with heart rate 90 bpm with no STT wave abnormalities. No QTc prolongation noted. EKG at 23:26 in ER shows junctional tachycardia with heart rate 134 bpm with inverted P-waves in the inferior leads II, III, and aVF. T-wave flattening in leads V2-V3. No QTc prolongation noted. Laboratory evaluation show WBC 8.0, hemoglobin 12.7, hematocrit 39.2, MCV 103.7, platelet 109, D-dimer 0.93, sodium 138, potassium 4.2, chloride 99, bicarb 37, BUN 18, creatinine 1.09, EGFR 62, glucose 112, and troponin 0.015. The patient's temperature upon arrival was 102.4 F. Patient was admitted for further evaluation. Was placed bronchodilators and steroids for acute COPD exacerbation. Was placed on IV levofloxacin 750 Mg for pneumonia. CBC showed normal white blood count and was placed on oral levofloxacin 750 mg to finish course. Echocardigram was negative for any signs of HF. cardiology was consulted due to concern for arrhythmia. likely has AVRT versus atrial tachycardia. Started on Cardizem oral. Patient was weaned from 8 L of oxygen to 5 L. Patient being sent home with prednisone 40 mg for 1 day, levofloxacin 750 mg p.o. for 1 day, Cardizem CD 120 mg p.o. daily. patient is very noncompliant with his medications. Unclear if he is taking his salt at home. Discontinued as he is a high-risk patient. Patient is to follow up with PCP. He is being discharged home. 11/21/2023: Patient seen and examined at bedside No acute events overnight. Vital signs reviewed and stable. Physical Exam: General: nontoxic, no distress, appears at stated age Derm: warm, dry, intact Head: atraumatic, normocephalic, symmetric Eyes: EOMI, no lid lag, anicteric sclera Mouth: no lip lesion, mucus membranes moist Cardiovascular: S1 S2 reg, no murmur, rubs, or gallops Lungs: CTA bilateral, no rhonchi, no rales, no accessory muscle use Abdominal: soft, non-tender to palpataion, no appreciable organomegaly Extremities: no gross muscle atrophy, no edema, no contractures Neuro: Alert, Oriented, CNII-XII grossly intact, gait normal Psych: well appearing, appropriate affect A total of 33 minutes of time were spent preparing this complex discharge summary. Patient was discharge on 11/21/2023 at 12:35 PM I have seen and evaluated the patient today. Discussed with the resident and agree with resident's findings and plan as documented in the resident's note. Changes highlighted in blue font. Patient Condition at Discharge: Stable Plan - Discharge Summary Discharge Rx Participant: No New Discharge Prescriptions: New predniSONE [Deltasone] 40 mg PO DAILY #2 tab Levofloxacin [Levaquin] 750 mg PO DAILY #1 tab Diltiazem Cd [Cardizem CD] 120 mg PO DAILY #60 cap Continue Tamsulosin HCl [Flomax] 0.4 mg PO DAILY Insulin Glargine,Hum.rec.anlog [Lantus Solostar Pen] 20 units SQ DAILY Atorvastatin Calcium [Lipitor] 80 mg PO HS Aspirin EC [Ecotrin Low Dose] 81 mg PO DAILY Tiotropium 2.5 Mcg/Puff [Spiriva Respimat 2.5 Mcg] 2 puff INHALATION RT-DAILY Metoprolol Succinate [Toprol XL] 200 mg PO DAILY Nitroglycerin Sl Tabs [Nitrostat] 0.4 mg SUBLINGUAL Q5M PRN PRN Reason: Chest Pain Melatonin 3 mg PO HS PRN PRN Reason: Insomnia Ferrous Sulfate [Iron (65 MG Elemental)] 325 mg PO DIRECTED lisinopriL 40 mg PO DAILY Pantoprazole Sodium [Protonix] 40 mg PO DAILY Docusate [Colace] 100 mg PO BID PRN PRN Reason: Constipation Cholecalciferol [Vitamin D3 (25 Mcg = 1000 Iu)] 25 mcg PO DAILY Albuterol Sulfate [Albuterol Sulfate Hfa] 2 puff PO RT-QID PRN PRN Reason: Shortness Of Breath Discontinued amLODIPine [Norvasc] 2.5 mg PO DAILY Rivaroxaban [Xarelto] 15 mg PO DAILY Discharge Medication List Ferrous Sulfate [Iron (65 MG Elemental)] 325 mg PO DIRECTED 11/17/23 [History] Melatonin 3 mg PO HS PRN 11/17/23 [History] Nitroglycerin Sl Tabs [Nitrostat] 0.4 mg SUBLINGUAL Q5M PRN 11/17/23 [History] Albuterol Sulfate [Albuterol Sulfate Hfa] 2 puff PO RT-QID PRN 11/18/23 [History] Aspirin EC [Ecotrin Low Dose] 81 mg PO DAILY 11/18/23 [History] Atorvastatin Calcium [Lipitor] 80 mg PO HS 11/18/23 [History] Cholecalciferol [Vitamin D3 (25 Mcg = 1000 Iu)] 25 mcg PO DAILY 11/18/23 [History] Docusate [Colace] 100 mg PO BID PRN 11/18/23 [History] Insulin Glargine,Hum.rec.anlog [Lantus Solostar Pen] 20 units SQ DAILY 11/18/23 [History] Metoprolol Succinate [Toprol XL] 200 mg PO DAILY 11/18/23 [History] Pantoprazole Sodium [Protonix] 40 mg PO DAILY 11/18/23 [History] Tamsulosin HCl [Flomax] 0.4 mg PO DAILY 11/18/23 [History] Tiotropium 2.5 Mcg/Puff [Spiriva Respimat 2.5 Mcg] 2 puff INHALATION RT-DAILY 11/18/23 [History] lisinopriL 40 mg PO DAILY 11/18/23 [History] Diltiazem Cd [Cardizem CD] 120 mg PO DAILY #60 cap 11/21/23 [Rx] Levofloxacin [Levaquin] 750 mg PO DAILY #1 tab 11/21/23 [Rx] predniSONE [Deltasone] 40 mg PO DAILY #2 tab 11/21/23 [Rx] Follow up Appointment(s)/Referral(s): Casey Brown DO [REFERRING] - 11/25/23 1:00 pm Patient Instructions/Handouts: COPD (Chronic Obstructive Pulmonary Disease) (DC), Community Acquired Pneumonia (DC) Activity/Diet/Wound Care/Special Instructions: call [facility] to transport the pt [phone] Please see your PCP. Discharge Disposition: HOME SELF-CARE
[2023-11-21 15:29] VITALS: PULSE 68
[2023-11-21 17:15] LABS: Glucose,Whole Blood 183 mg/dL (70-110)
== END 2023-11-21 18:37 | disposition home or self-care (01) | DRG 193 ==
LOC: EC 20:09 → 5NMEDONC 11-18 03:48
PROVIDERS: ADMIT Internal Medicine; ATTEND Internal Medicine
DX: J18.1 Lobar pneumonia, unspecified organism (principal); J96.21 Acute and chronic respiratory failure with hypoxia; F03.94 Unspecified dementia, unspecified severity, with anxiety; I47.19 Other supraventricular tachycardia; J44.0 Chronic obstructive pulmonary disease with (acute) lower respiratory infection; J44.1 Chronic obstructive pulmonary disease with (acute) exacerbation; I44.4 Left anterior fascicular block; D53.9 Nutritional anemia, unspecified; D69.6 Thrombocytopenia, unspecified; R79.1 Abnormal coagulation profile; E11.9 Type 2 diabetes mellitus without complications; E78.5 Hyperlipidemia, unspecified; F17.200 Nicotine dependence, unspecified, uncomplicated; I11.0 Hypertensive heart disease with heart failure; I25.10 Atherosclerotic heart disease of native coronary artery without angina pectoris; I50.9 Heart failure, unspecified; N40.0 Benign prostatic hyperplasia without lower urinary tract symptoms; Z99.81 Dependence on supplemental oxygen; Z79.01 Long term (current) use of anticoagulants; Z79.4 Long term (current) use of insulin; Z79.82 Long term (current) use of aspirin; Z20.822 Contact with and (suspected) exposure to COVID-19; Z79.899 Other long term (current) drug therapy; Z86.711 Personal history of pulmonary embolism; Z91.148 Patient's other noncompliance with medication regimen for other reason; Z91.199 Patient's noncompliance with other medical treatment and regimen due to unspecified reason; Z88.5 Allergy status to narcotic agent; Z88.0 Allergy status to penicillin; Z88.8 Allergy status to other drugs, medicaments and biological substances
CPT/HCPCS: 36415; 71046; 71275; 80048; 80053; 81001; 82607; 82747; 83605; 83880; 84484; 85025; 85027; 85379; 85610; 85730; 87040; 87449; 87636; 93005; 93306; 94640; 96361; 96365; 96366; 99285

== ENCOUNTER 2024-03-03 12:56 | Observation (INO) | payer MEDICARE, OTHER ==
--- NOTE | 2024-03-03 13:03 | ED ---
SOB HPI - General Stated Complaint: SOB Time Seen by Provider: 03/03/24 12:59 Source: RN notes reviewed, old records reviewed Mode of arrival: ambulatory Limitations: no limitations - History of Present Illness Initial Comments: This is a 83-year-old male to the ER for evaluation patient presents today for evaluation regards to shortness of breath. Sent in by home care for shortness of breath although symptoms improved on arrival to the ER patient has no complaints of shortness of breath here in the ER without chest pain recently started on antibiotics MD Complaint: shortness of breath, cough, "asthma attack" -: hour(s) Severity: moderate Severity scale (1-10): 7 Quality: aching Consistency: constant Improves With: nothing, rest Worsens With: nothing Known History Of: COPD Context: recent URI, recent illness Associated Symptoms: denies other symptoms - Related Data Home Medications Medication Instructions Recorded Confirmed Ferrous Sulfate [Iron (65 MG 325 mg PO Q2D 11/17/23 03/03/24 Elemental)] Melatonin 3 mg PO HS PRN 11/17/23 03/03/24 Nitroglycerin Sl Tabs [Nitrostat] 0.4 mg SUBLINGUAL Q5M PRN 11/17/23 03/03/24 Albuterol Sulfate [Albuterol 2 puff PO RT-QID PRN 11/18/23 03/03/24 Sulfate Hfa] Atorvastatin Calcium [Lipitor] 80 mg PO HS 11/18/23 03/03/24 Cholecalciferol [Vitamin D3 (25 25 mcg PO DAILY 11/18/23 03/03/24 Mcg = 1000 Iu)] Docusate [Colace] 100 mg PO BID PRN 11/18/23 03/03/24 Insulin Glargine,Hum.rec.anlog 20 units SQ DAILY 11/18/23 03/03/24 [Lantus Solostar Pen] Metoprolol Succinate [Toprol XL] 200 mg PO DAILY 11/18/23 03/03/24 Pantoprazole Sodium [Protonix] 40 mg PO DAILY 11/18/23 03/03/24 Tiotropium 2.5 Mcg/Puff [Spiriva 2 puff INHALATION RT-DAILY 11/18/23 03/03/24 Respimat 2.5 Mcg] lisinopriL 40 mg PO DAILY 11/18/23 03/03/24 Doxazosin [Cardura] 4 mg PO DAILY 03/03/24 03/03/24 Furosemide [Lasix] 20 mg PO DAILY 03/03/24 03/03/24 Previous Rx's Medication Instructions Recorded Diltiazem Cd [Cardizem CD] 120 mg PO DAILY #60 cap 11/21/23 Doxycycline [Vibramycin] 100 mg PO BID 4 Days #8 cap 03/04/24 Rivaroxaban [Xarelto] 20 mg PO HS 30 Days #30 tab 03/04/24 predniSONE [Deltasone] 40 mg PO DAILY 4 Days #8 tab 03/04/24 Allergies Allergy/AdvReac Type Severity Reaction Status Date / Time Penicillins Allergy Swelling Verified 03/03/24 15:01 alprazolam [From Xanax] AdvReac Hallucinati Verified 03/03/24 15:01 ons lorazepam AdvReac Hallucinati Verified 03/03/24 15:01 ons meperidine [From Demerol] AdvReac Hallucinati Verified 03/03/24 15:01 ons Review of Systems ROS Statement: Those systems with pertinent positive or pertinent negative responses have been documented in the HPI. ROS Other: All systems not noted in ROS Statement are negative. Past Medical History Past Medical History: Coronary Artery Disease (CAD), Chest Pain / Angina, COPD, Dementia, Diabetes Mellitus, Deep Vein Thrombosis (DVT), Eye Disorder, GERD/Reflux, Hyperlipidemia, Hypertension, Memory Impairment, Pneumonia, Prostate Disorder, Pulmonary Embolus (PE) Additional Past Medical History / Comment(s): Kidney stones, Eye lens issue History of Any Multi-Drug Resistant Organisms: None Reported Past Surgical History: Heart Catheterization With Stent Additional Past Surgical History / Comment(s): Stents in legs, Lens replacememt, Kidney stone removal sx Past Anesthesia/Blood Transfusion Reactions: No Reported Reaction Date of Last Stent Placement:: 05/05/18 Past Psychological History: No Psychological Hx Reported Smoking Status: Current every day smoker Past Alcohol Use History: Occasional Additional Past Alcohol Use History / Comment(s): Pt no longer drinks Past Drug Use History: None Reported - Past Family History Mother Family Medical History: No Reported History Father Family Medical History: No Reported History General Exam General appearance: alert, in no apparent distress Head exam: Present: atraumatic, normocephalic, normal inspection Eye exam: Present: normal appearance, PERRL, EOMI. Absent: scleral icterus, conjunctival injection, periorbital swelling ENT exam: Present: normal exam, mucous membranes moist Neck exam: Present: normal inspection. Absent: tenderness, meningismus, lymphadenopathy Respiratory exam: Present: respiratory distress, wheezes, accessory muscle use, decreased breath sounds, prolonged expiratory. Absent: rales, rhonchi, stridor Cardiovascular Exam: Present: regular rate, normal rhythm, normal heart sounds. Absent: systolic murmur, diastolic murmur, rubs, gallop, clicks GI/Abdominal exam: Present: soft, normal bowel sounds. Absent: distended, tenderness, guarding, rebound, rigid Extremities exam: Present: normal inspection, full ROM, normal capillary refill. Absent: tenderness, pedal edema, joint swelling, calf tenderness Back exam: Present: normal inspection Neurological exam: Present: alert, oriented X3, CN II-XII intact Psychiatric exam: Present: normal affect, normal mood Skin exam: Present: warm, dry, intact, normal color. Absent: rash Course Vital Signs 03/03/24 03/03/24 03/03/24 12:59 13:05 13:45 Temperature 98.1 F Pulse Rate 90 82 Pulse Rate [ Plate Glass Installer Helper ] Respiratory 16 16 Rate Blood Pressure 131/94 Blood Pressure [Right Arm] O2 Sat by Pulse 92 L Oximetry 03/03/24 03/03/24 03/03/24 14:04 14:45 15:00 Temperature Pulse Rate 100 103 H 151 H Pulse Rate [ Plate Glass Installer Helper ] Respiratory 18 16 Rate Blood Pressure 73/53 124/86 Blood Pressure [Right Arm] O2 Sat by Pulse 93 L 95 Oximetry 03/03/24 03/03/24 03/03/24 15:30 18:07 20:34 Temperature 97.9 F Pulse Rate 98 95 Pulse Rate [ 74 Plate Glass Installer Helper ] Respiratory 18 18 Rate Blood Pressure 128/74 Blood Pressure 143/66 [Right Arm] O2 Sat by Pulse 95 94 L Oximetry 03/03/24 03/04/24 03/04/24 23:34 04:00 08:05 Temperature Pulse Rate 72 Pulse Rate [ 73 68 Plate Glass Installer Helper ] Respiratory 18 16 Rate Blood Pressure Blood Pressure 142/57 154/75 [Right Arm] O2 Sat by Pulse 94 L 95 Oximetry 03/04/24 03/04/24 03/04/24 08:17 09:03 10:00 Temperature 98.1 F Pulse Rate 80 128 H 100 Pulse Rate [ Plate Glass Installer Helper ] Respiratory 18 Rate Blood Pressure 138/69 Blood Pressure [Right Arm] O2 Sat by Pulse 96 Oximetry 03/04/24 03/04/24 03/04/24 11:27 11:38 11:59 Temperature Pulse Rate 104 H 92 78 Pulse Rate [ Plate Glass Installer Helper ] Respiratory 18 Rate Blood Pressure 139/73 Blood Pressure [Right Arm] O2 Sat by Pulse 88 L Oximetry 03/04/24 14:47 Temperature 97.5 F L Pulse Rate 70 Pulse Rate [ Plate Glass Installer Helper ] Respiratory 18 Rate Blood Pressure 159/73 Blood Pressure [Right Arm] O2 Sat by Pulse 93 L Oximetry - Reevaluation(s) Reevaluation #1: 03/03/24 13:06 Medical records reviewed Reevaluation #2: 03/03/24 13:44 Patient symptoms continue to improve Reevaluation #3: 03/03/24 13:44 Patient informed of results questions answered Reevaluation #4: Was pt. sent in by a medical professional or institution (, PA, SEISMOLOGY TECHNICAL OFFICER, urgent care, hospital, or [place] health care facility...) When possible be specific @ -no Did you speak to anyone other than the patient for history (EMS, parent, family, police, friend...)? What history was obtained from this source @ -no Did you review nursing and triage notes (agree or disagree)? Why? @ -agree Are old charts reviewed (outside hosp., previous admission, EMS record, old EKG, old radiological studies, urgent care reports/EKG's, [place] health care facility records)? Report findings @ -yes Differential Diagnosis (chest pain, altered mental status, abdominal pain women, abdominal pain men, vaginal bleeding, weakness, fever, dyspnea, syncope, headache, dizziness, GI bleed, back pain, seizure, CVA, palpatations, mental health, musculoskeletal)? @ -prior EKG interpreted by me (3pts min.). @ -yes X-rays interpreted by me (1pt min.). @ -yes with pneumonia CT interpreted by me (1pt min.). @ -no U/S interpreted by me (1pt. min.). @ -no What testing was considered but not performed or refused? (CT, X-rays, U/S, la bs)? Why? @ -none What meds were considered but not given or refused? Why? @ -none Did you discuss the management of the patient with other professionals (professionals i.e. , PA, SEISMOLOGY TECHNICAL OFFICER, lab, RT, psych nurse, social and human services assistant, psychic reader, teacher, chief growth officer, bottle caser)? Give summary @ -no Was smoking cessation discussed for >3mins.? @ -no Was critical care preformed (if so, how long)? @ -yes31 Were there social determinants of health that impacted care today? How? (Homelessness, low income, unemployed, alcoholism, drug addiction, transportation, low edu. Level, literacy, decrease access to med. care, fpc, rehab)? @ -none Was there de-escalation of care discussed even if they declined (Discuss DNR or withdrawal of care, Hospice)? DNR status @ -no What co-morbidities impacted this encounter? (DM, HTN, Smoking, COPD, CAD, Cancer, CVA, ARF, Chemo, Hep., AIDS, mental health diagnosis, sleep apnea, morbid obesity)? @ -none Was patient admitted / discharged? Hospital course, mention meds given and route, prescriptions, significant lab abnormalities, going to OR and other pertinent info. @ - 83 male with COPD and dyspnea, significant COPD exacerbation with no evidence of pneumonia on x-ray new onset atrial fibrillation with RVR complicating patient's shortness of breath and work of breathing Admitted Undiagnosed new problem with uncertain prognosis? @ -no Drug Therapy requiring intensive monitoring for toxicity (Heparin, Nitro, Insulin, Cardizem)? @ -no Were any procedures done? @ -no Diagnosis/symptom? @ -Pneumonia COPD A-fib with RVR Acute, or Chronic, or Acute on Chronic? @ -Acute Uncomplicated (without systemic symptoms) or Complicated (systemic symptoms)? @ -Complicated Side effects of treatment? @ -no Exacerbation, Progression, or Severe Exacerbation? @ -exacerbation Poses a threat to life or bodily function? How? (Chest pain, [place], [place], pneumonia, PE, COPD, DKA, ARF, appy, cholecystitis, CVA, Diverticulitis, Homicidal, Suicidal, threat to staff... and all critical care pts) @ -yes extremes of age Reevaluation #5: Differential Dyspnea: Coronary syndrome, arrhythmia, tamponade, asthma, COPD, pulmonary embolism, pneumonia, pneumothorax, pulmonary effusion, anaphylaxis, diabetic ketoacidosis, flailed chest, pulmonary contusion, diaphragmatic rupture, anemia, neuromuscular, this is not meant to be an all-inclusive list. - Consultations Consultation #1: Spoke with [facility] who agrees to admit this patient Medical Decision Making - Medical Decision Making 83 male with COPD and dyspnea, significant COPD exacerbation with no evidence of pneumonia on x-ray new onset atrial fibrillation with RVR complicating patient's shortness of breath and work of breathing - Lab Data Result diagrams: 03/04/24 06:43 03/04/24 06:43 Lab Results 03/03/24 03/03/24 03/03/24 Range/Units 13:14 13:14 13:14 WBC 15.4 H (3.8-10.6) k/uL RBC 4.19 L (4.30-5.90) m/uL Hgb 14.4 (13.0-17.5) gm/dL Hct 43.9 (39.0-53.0) % MCV 104.8 H (80.0-100.0) fL MCH 34.3 (25.0-35.0) pg MCHC 32.7 (31.0-37.0) g/dL RDW 13.7 (11.5-15.5) % Plt Count 149 L (150-450) k/uL MPV 7.7 Neutrophils % 90 % Lymphocytes % 4 % Monocytes % 5 % Eosinophils % 1 % Basophils % 0 % Neutrophils # 13.9 H (1.3-7.7) k/uL Lymphocytes # 0.6 L (1.0-4.8) k/uL Monocytes # 0.7 (0-1.0) k/uL Eosinophils # 0.1 (0-0.7) k/uL Basophils # 0.0 (0-0.2) k/uL Macrocytosis Slight PT 11.3 (10.0-12.5) sec INR 1.0 (<1.2) APTT 22.3 (22.0-30.0) sec Sodium 141 (137-145) mmol/L Potassium 3.0 L (3.5-5.1) mmol/L Chloride 96 L (98-107) mmol/L Carbon Dioxide 36 H (22-30) mmol/L Anion Gap 9 mmol/L BUN 17 (9-20) mg/dL Creatinine 1.05 (0.66-1.25) mg/dL Est GFR (CKD-EPI)AfAm 75 (>60 ml/min/1.73 sqM) Est GFR (CKD-EPI)NonAf 65 (>60 ml/min/1.73 sqM) Glucose 129 H (74-99) mg/dL Plasma Lactic Acid Laci (0.7-2.0) mmol/L Calcium 8.9 (8.4-10.2) mg/dL Magnesium 1.5 L (1.6-2.3) mg/dL Total Bilirubin 0.6 (0.2-1.3) mg/dL AST 20 (17-59) U/L ALT 20 (4-49) U/L Alkaline Phosphatase 69 (38-126) U/L Troponin I (0.000-0.034) ng/mL NT-Pro-B Natriuret Pep 2640 pg/mL Total Protein 6.8 (6.3-8.2) g/dL Albumin 3.9 (3.5-5.0) g/dL 03/03/24 03/03/24 Range/Units 13:14 13:14 WBC (3.8-10.6) k/uL RBC (4.30-5.90) m/uL Hgb (13.0-17.5) gm/dL Hct (39.0-53.0) % MCV (80.0-100.0) fL MCH (25.0-35.0) pg MCHC (31.0-37.0) g/dL RDW (11.5-15.5) % Plt Count (150-450) k/uL MPV Neutrophils % % Lymphocytes % % Monocytes % % Eosinophils % % Basophils % % Neutrophils # (1.3-7.7) k/uL Lymphocytes # (1.0-4.8) k/uL Monocytes # (0-1.0) k/uL Eosinophils # (0-0.7) k/uL Basophils # (0-0.2) k/uL Macrocytosis PT (10.0-12.5) sec INR (<1.2) APTT (22.0-30.0) sec Sodium (137-145) mmol/L Potassium (3.5-5.1) mmol/L Chloride (98-107) mmol/L Carbon Dioxide (22-30) mmol/L Anion Gap mmol/L BUN (9-20) mg/dL Creatinine (0.66-1.25) mg/dL Est GFR (CKD-EPI)AfAm (>60 ml/min/1.73 sqM) Est GFR (CKD-EPI)NonAf (>60 ml/min/1.73 sqM) Glucose (74-99) mg/dL Plasma Lactic Acid Laci 1.9 (0.7-2.0) mmol/L Calcium (8.4-10.2) mg/dL Magnesium (1.6-2.3) mg/dL Total Bilirubin (0.2-1.3) mg/dL AST (17-59) U/L ALT (4-49) U/L Alkaline Phosphatase (38-126) U/L Troponin I 0.016 (0.000-0.034) ng/mL NT-Pro-B Natriuret Pep pg/mL Total Protein (6.3-8.2) g/dL Albumin (3.5-5.0) g/dL - EKG Data -: EKG Interpreted by Me (EKG repeat shows new onset atrial fibrillation with RVR) - Radiology Data Radiology results: report reviewed (Chest x-ray is negative for acute disease), image reviewed Critical Care Time Critical Care Time: Yes Total Critical Care Time: 31 Disposition Clinical Impression: Acute exacerbation of chronic obstructive pulmonary disease, Atrial fibrillation with rapid ventricular response, Weakness, New onset atrial fib rillation Disposition: ADMITTED IP TO THIS HOSP Condition: Good Is patient prescribed a controlled substance at d/c from ED?: No Time of Disposition: 15:00
[2024-03-03] MEDS: methylPREDNISolone SOD SUCCI 125 MG/2 ML VIAL IV STA (13:24)
[2024-03-03] MEDS: SODIUM CHLORIDE 0.9% 1,000 ML IV STA (13:25)
[2024-03-03 13:35] LABS: Basophils % (A) 0 %; Eosinophils # (A) 0.1 k/uL (0-0.7); Eosinophils % (A) 1 %; HCT 43.9 % (39.0-53.0); HGB 14.4 gm/dL (13.0-17.5); Lymphocytes # (A) 0.6 k/uL (1.0-4.8); Lymphocytes % (A) 4 %; MCH 34.3 pg (25.0-35.0); MCHC 32.7 g/dL (31.0-37.0); MCV 104.8 fL (80.0-100.0); Macrocytosis Slight; Mean Platelet Volume 7.7; Monocytes # (A) 0.7 k/uL (0-1.0); Monocytes % (A) 5 %; Neutrophils # (A) 13.9 k/uL (1.3-7.7); Neutrophils % (A) 90 %; Platelet Count 149 k/uL (150-450); RBC 4.19 m/uL (4.30-5.90); RDW 13.7 % (11.5-15.5); WBC 15.4 k/uL (3.8-10.6)
[2024-03-03] MEDS: IPRATROPIUM-ALBUTEROL 3 ML NEB INHALATION STA (13:45)
--- NOTE | 2024-03-03 13:49 | XR ---
EXAMINATION TYPE: XR chest 1V portable DATE OF EXAM: 03/03/2024 1:41 PM COMPARISON: Chest radiographs from 11/17/2023, CTA chest 02/26/2019 TECHNIQUE: XR chest 1V portable Portable AP radiograph of the chest. CLINICAL INDICATION:Male, 83 years old with history of sob; FINDINGS: Lungs/Pleura: There is no evidence of pleural effusion, focal consolidation, or pneumothorax. Linear atelectasis. Pulmonary vascularity: Unremarkable. Heart/mediastinum: Cardiomediastinal silhouette is enlarged and stable. Musculoskeletal: No acute osseous pathology. IMPRESSION: 1. No acute cardiopulmonary disease/process. 2. Lingular atelectasis. 3. Cardiomegaly. [facility], , 03/03/2024 1:47 PM
[2024-03-03 13:56] LABS: Partial Thromboplastin Time 22.3 sec (22.0-30.0); Prothrombin Time 11.3 sec (10.0-12.5)
[2024-03-03 14:20] LABS: ALT 20 U/L (4-49); AST 20 U/L (17-59); African American GFR (CKD) 75 (>60 ml/min/1.73 sqM); Albumin 3.9 g/dL (3.5-5.0); Alkaline Phosphatase 69 U/L (38-126); Blood Urea Nitrogen 17 mg/dL (9-20); Calcium 8.9 mg/dL (8.4-10.2); Chloride 96 mmol/L (98-107); Glucose 129 mg/dL (74-99); Magnesium 1.5 mg/dL (1.6-2.3); Non-African American GFR(CKD) 65 (>60 ml/min/1.73 sqM); Sodium 141 mmol/L (137-145); Total Bilirubin 0.6 mg/dL (0.2-1.3); Total Protein 6.8 g/dL (6.3-8.2)
[2024-03-03 14:26] LABS: Anion Gap 9 mmol/L
[2024-03-03 14:28] LABS: NT-Pro-B-Type Natriuretic Pept 2640 pg/mL
[2024-03-03 14:35] LABS: Carbon Dioxide 36 mmol/L (22-30)
[2024-03-03] MEDS ORDERED: MORPHINE SULFATE 4 MG/ML SYRINGE IV PRN (14:57)
[2024-03-03] MEDS ORDERED: NALOXONE 0.4 MG/ML 1 ML VIAL IV PRN (14:57)
[2024-03-03] MEDS ORDERED: ONDANSETRON 4 MG/2 ML VIAL IVP PRN (14:57)
[2024-03-03] MEDS: MAGNESIUM OXIDE 400 MG TAB PO STA ×2 (15:03)
[2024-03-03] MEDS: MAGNESIUM SULFATE-D5W PMX 1 GM in DEXTROSE/WATER 1 100ML.BAG IVPB ONE (15:04)
[2024-03-03] MEDS: POTASSIUM BICARBONATE/CIT AC 20 MEQ TABLET.EFF PO ONE ×2 (15:16→17:22)
[2024-03-03] MEDS: HEPARIN SODIUM 1,000 UN/ML (10ML VL) IV ONE (15:17)
[2024-03-03] MEDS: DILTIAZEM 125 MG in SODIUM CHLORIDE 0.9% 100 ML IV SCH (15:22)
[2024-03-03] MEDS: DILTIAZEM DRIP BOLUS FROM BAG 1 MG SOLN IV ONE (15:25)
[2024-03-03] MEDS: HEPARIN SOD,PORK IN 0.45% NACL 25,000 UNIT in 0.45% NACL 1 250ML.BAG IV SCH (15:47)
[2024-03-03] MEDS: POTASSIUM CHLORIDE 10 MEQ in WATER FOR INJECTION 1 100ML.BAG IVPB STA (16:42)
[2024-03-03] MEDS: SODIUM CHLORIDE 0.9% 1,000 ML IV SCH (17:03)
[2024-03-03] MEDS ORDERED: NITROGLYCERIN SL TABS 0.4 MG TAB SUBLINGUAL PRN (17:32)
[2024-03-03] MEDS ORDERED: DOCUSATE 100 MG CAP PO PRN (17:32)
[2024-03-03] MEDS: METOPROLOL TARTRATE 50 MG TAB PO STA (18:06)
[2024-03-03] MEDS: DILTIAZEM CD 120 MG CAP.ER.24H PO STA (18:15)
[2024-03-03] MEDS ORDERED: DEXTROSE 50% SYRINGE 50 ML IVP PRN ×2 (18:44)
[2024-03-03] MEDS: ASPIRIN 81 MG PO STA (18:54)
--- NOTE | 2024-03-03 18:55 | P.HPIM ---
History of Present Illness H&P Date: 03/03/24 History of Presenting Illness: Patient is a very pleasant 83-year-old male that follows with a past medical history of CAD status post stenting, peripheral vascular disease status post stenting to bilateral legs, hypertension, hyperlipidemia, dementia with short- term memory impairment, history of PE on anticoagulant with Xarelto, BPH, and COPD with chronic hypoxic respiratory failure home oxygen dependent on 3 L with continued nicotine dependence. He presented to the emergency department via EMS with a chief complaint of acute on chronic shortness of breath and chest pain. Patient is a poor historian but does report that he follows with [facility] and states that he was recently seen by a PA there and was "started on and antibiotic and some steroids for my COPD". Patient reports over the past couple of days he feels his breathing has worsened and today he also started feeling chest pain that he described as a "funny feeling, like something ain't right in my chest", Pt states his nurse came to check on him and there was something wrong with my oxygen level so she called for an ambulance to take him to the hospital. Patient currently reports chest pain has resolved and shortness of breath has improved since arriving to our facility. Patient denies any recent fevers, but states he can't be positive because he doesn't check that at home. He reports he has a good appetite and is hungry right now and denies having any nausea, vomiting, noticing a worsening cough or congestion, or any other complaints at this time. Patient reports that he did take his metoprolol this morning, but states he cannot remember if he took his Cardizem or not. On arrival to our facility, patient underwent evaluation in the emergency department. Vital signs upon arrival show blood pressure 131/94, heart rate 98, respiratory rate 16, temp 98.1 F, and SpO2 of 92% on 3 L. Chest X-ray was completed negative for acute cardiopulmonary process showing lingular atelectasis and cardiomegaly. Labs were completed and reviewed. CBC showing leukocytosis with WBC count of 15.4, macrocytosis with MCV of 104.8, and thrombocytopenia with platelet count of 149. Coagulation profile was normal findings. He showing hypokalemia with potassium of 3.0, hypochloremia with chloride of 96, and hypercarbia with bicarb of 36. Blood glucose was 129. Lactic acid normal findings at 1.9. Magnesium 1.5. Liver profile unremarkable. Troponin was 0.016. proBNP was 2640.patient was given Solu-Medrol 125 mg IVP and DuoNeb treatments and shortly after went into tachycardic rhythm. EKG showing atrial tachycardia with a left anterior fascicular block with T wave inv ersion in lateral lead aVL and moderate ST depression in V5. Inverted T wave and ST depression in V5 was present on previous EKG completed 11/17/2023 at 23:36 PM. ED physician started pt on low intensity heparin infusion and Cardizem infusion. Patient then admitted under our services with consultation to cardiology. Review of systems: Pertinent positives and negatives as discussed in HPI, a complete review of systems was performed and all other systems are negative. Physical exam: Vital signs reviewed and stable. General: Nontoxic, no distress and appears stated age. Derm: Skin warm and dry, normal coloration for ethnicity. Head: Atraumatic, normocephalic and symmetric. Eyes: EOM's intact, no lid lag, and anicteric sclera Mouth: no lip lesions, mucus membranes moist Cardiovascular: regular rate and rhythm with normal S1S2, systolic murmur, positive posterior tibial pulses bilaterally, and cap refill < 2 seconds. Lungs: Respirations even, regular, and unlabored on room air. Lungs diminished with soft expiratory wheezes in upper lobes otherwise no rhonchi, no rales, no wheezing, and no accessory muscle usage. Abdominal: soft, nontender to palpation, no guarding, no appreciable organomegaly Ext: ROM intact. No gross muscle atrophy, no edema, no contractures Neuro: Speech clear, face symmetrical and CN II-XII grossly intact with no noted focal neuro deficits Psych: Alert and oriented to person, place, and situation but confused to time and a very poor historian. Appropriate and pleasant affect. Assessment and Plan of Care: Atypical chest pain with shortness of breath Atrial tachycardia/SVT, likely secondary to IV steroids and nebulizer treatment CAD with previous stenting Peripheral vascular disease with stenting in bilateral legs History of PE -Pt reports he is on anticoagulation with Xarelto for previous pulmonary emboli, dosing is reported to be 15 mg daily and patient was started on heparin infusion in the emergency department. -Continue Heparin infusion until we are able verify home Xarelto dose as pharmacist was unable to pull forward in system and pt reports [facility]. -Consult placed to cardiology -Trend troponins and obtain a TSH with free T4. -Cardizem infusion discontinued as patient now maintaining normal sinus mechanism and patient given oral Cardizem that he reports missing this morning and a one-time dose of metoprolol 50 mg. -Patient to remain on continuous telemetry monitoring -Recent echocardiogram completed 11/20/2023 was reviewed revealing a preserved EF of 55%, will defer to cardiology if they want a repeat. -Aspirin 324 mg p.o. x 1 dose followed by 81 mg daily. -Atorvastatin 80 mg nightly. COPD with mild exacerbation Acute on chronic hypoxic and hypercapnic respiratory failure -Oxygenation to be administered and titrated as needed to maintain SPO2 equal to or greater than 92%. Baseline home O2 is 3 L. -Telemetry monitoring. -Monitor pulse-oximetry -Duonebs scheduled 4 times daily and as needed for SOB and/or wheezing -Incentive Spirometry -Steroids: 40 mg daily -Antibiotics: Doxycycline 100 mg twice daily. Electrolyte imbalances Hypokalemia Hypomagnesemia -Likely secondary to daily diuretic use. -Replaced in the emergency department. We will continue to monitor with repeat a.m. labs and replace abnormal electrolyte values as indicated based upon these findings. Insulin-dependent diabetes mellitus -Continue Lantus 20 units daily and patient placed on glycemic protocol with NovoLog sliding scale. Hypertension -Monitor vital signs every 4 hours and continue daily medication regimen with metoprolol succinate 200 mg daily, lisinopril 40 mg daily, and Cardizem 120 mg daily. Hyperlipidemia -Continue daily medication regimen with atorvastatin 80 mg nightly. Dementia with short-term memory loss -Provide safe and supportive care and redirection/assistance as needed. Data and imaging reviewed: -As stated above in HPI CODE STATUS: Full code DVT prophylaxis: Heparin Anticipated discharge date: Pending clinical course Anticipated discharge place: Home Patient was seen independently by Nurse Practitioner. This document was prepared using [employer] dictation software. Please allow for errors in refrigeration installer while rare they do occur. Diony Duffy NP rendered care for this patient independently, reviewed the findings and plan as documented in the note above. I did not physically speak with or examine the patient on this date. Past Medical History Past Medical History: Coronary Artery Disease (CAD), Chest Pain / Angina, COPD, Dementia, Diabetes Mellitus, Deep Vein Thrombosis (DVT), Eye Disorder, GERD/Reflux, Hyperlipidemia, Hypertension, Memory Impairment, Pneumonia, Prost ate Disorder, Pulmonary Embolus (PE) Additional Past Medical History / Comment(s): Kidney stones, Eye lens issue History of Any Multi-Drug Resistant Organisms: None Reported Past Surgical History: Heart Catheterization With Stent Additional Past Surgical History / Comment(s): Stents in legs, Lens replacememt, Kidney stone removal sx Past Anesthesia/Blood Transfusion Reactions: No Reported Reaction Date of Last Stent Placement:: 05/05/18 Past Psychological History: No Psychological Hx Reported Smoking Status: Current every day smoker Past Alcohol Use History: Occasional Additional Past Alcohol Use History / Comment(s): Pt no longer drinks Past Drug Use History: None Reported - Past Family History Mother Family Medical History: No Reported History Father Family Medical History: No Reported History Medications and Allergies Home Medications Medication Instructions Recorded Confirmed Type Ferrous Sulfate [Iron (65 MG 325 mg PO Q2D 11/17/23 03/03/24 History Elemental)] Melatonin 3 mg PO HS PRN 11/17/23 03/03/24 History Nitroglycerin Sl Tabs [Nitrostat] 0.4 mg SUBLINGUAL Q5M PRN 11/17/23 03/03/24 History Albuterol Sulfate [Albuterol 2 puff PO RT-QID PRN 11/18/23 03/03/24 History Sulfate Hfa] Atorvastatin Calcium [Lipitor] 80 mg PO HS 11/18/23 03/03/24 History Cholecalciferol [Vitamin D3 (25 25 mcg PO DAILY 11/18/23 03/03/24 History Mcg = 1000 Iu)] Docusate [Colace] 100 mg PO BID PRN 11/18/23 03/03/24 History Insulin Glargine,Hum.rec.anlog 20 units SQ DAILY 11/18/23 03/03/24 History [Lantus Solostar Pen] Metoprolol Succinate [Toprol XL] 200 mg PO DAILY 11/18/23 03/03/24 History Pantoprazole Sodium [Protonix] 40 mg PO DAILY 11/18/23 03/03/24 History Tiotropium 2.5 Mcg/Puff [Spiriva 2 puff INHALATION RT-DAILY 11/18/23 03/03/24 History Respimat 2.5 Mcg] lisinopriL 40 mg PO DAILY 11/18/23 03/03/24 History Diltiazem Cd [Cardizem CD] 120 mg PO DAILY #60 cap 11/21/23 03/03/24 Rx Doxazosin [Cardura] 4 mg PO DAILY 03/03/24 03/03/24 History Furosemide [Lasix] 20 mg PO DAILY 03/03/24 03/03/24 History Levofloxacin [Levaquin] 500 mg PO DAILY 03/03/24 03/03/24 History Rivaroxaban [Xarelto] 15 mg PO DAILY 03/03/24 03/03/24 History predniSONE [Deltasone] 40 mg PO DAILY 03/03/24 03/03/24 History Allergies Allergy/AdvReac Type Severity Reaction Status Date / Time Penicillins Allergy Swelling Verified 03/03/24 15:01 alprazolam [From Xanax] AdvReac Hallucinati Verified 03/03/24 15:01 ons lorazepam AdvReac Hallucinati Verified 03/03/24 15:01 ons meperidine [From Demerol] AdvReac Hallucinati Verified 03/03/24 15:01 ons Physical Exam Vitals: Vital Signs Temp Pulse Resp BP Pulse Ox 03/03/24 15:30 98 03/03/24 15:00 151 H 16 124/86 95 03/03/24 14:45 103 H 18 73/53 93 L 03/03/24 14:04 100 03/03/24 13:45 82 03/03/24 12:59 98.1 F 90 16 131/94 92 L Intake and Output 03/03/24 03/03/24 03/03/24 06:59 14:59 22:59 Other: Weight 72.575 kg Results CBC & Chem 7: 03/03/24 13:14 03/03/24 13:14 Labs: Abnormal Lab Results - Last 24 Hours (Table) 03/03/24 03/03/24 Range/Units 13:14 13:14 WBC 15.4 H (3.8-10.6) k/uL RBC 4.19 L (4.30-5.90) m/uL MCV 104.8 H (80.0-100.0) fL Plt Count 149 L (150-450) k/uL Neutrophils # 13.9 H (1.3-7.7) k/uL Lymphocytes # 0.6 L (1.0-4.8) k/uL Potassium 3.0 L (3.5-5.1) mmol/L Chloride 96 L (98-107) mmol/L Carbon Dioxide 36 H (22-30) mmol/L Glucose 129 H (74-99) mg/dL Magnesium 1.5 L (1.6-2.3) mg/dL
[2024-03-03 20:29] LABS: Glucose,Whole Blood 535 mg/dL (70-110)
[2024-03-03 20:32] LABS: Glucose,Whole Blood 563 mg/dL (70-110)
[2024-03-03] MEDS: ATORVASTATIN 80 MG TAB PO SCH (21:16)
[2024-03-03] MEDS: DOXYCYCLINE 100 MG CAP PO SCH (21:17)
[2024-03-03] MEDS: INSULIN ASPART (NovoLOG) 100 UNIT/ML VIAL SQ SCH (21:17)
[2024-03-03] MEDS: MELATONIN 3 MG TABLET PO PRN (22:20)
[2024-03-03] MEDS: HEPARIN SODIUM 1,000 UN/ML (10ML VL) IV PRN (22:41)
[2024-03-04 00:55] LABS: Glucose,Whole Blood 223 mg/dL (70-110)
--- NOTE | 2024-03-04 05:18 | P.CNPUL ---
History of Present Illness Consult date: 03/04/24 Requesting physician: Casey Ferrari Reason for consult: COPD Chief complaint: Shortness of breath History of present illness: Patient is a 83-year-old white male with past medical history significant for hypertension, hyperlipidemia, coronary artery disease with previous PCI/st enting, COPD, chronic ongoing tobacco dependence, DVT/PE, anticoagulated on Xarelto, and memory impairment. Patient is a poor historian. Presented the ED yesterday afternoon complaining of difficulty in breathing. States he was sent in from the [place] [facility]. States that his "heart was acting up". Noted to be in A- fib RVR on arrival, rate as high as 150 bpm. Chest x-ray showing no acute cardiopulmonary process. Cardiomegaly. Suspected lingular atelectasis. Denies sick contacts. Admits runny nose and sore throat. Denies any cough, sputum production, chest pain, fevers. CBC: WBC count 15.4, hemoglobin 14.4, hematocrit 43.9, platelets 149. Sodium 141, potassium 3, chloride 96, serum bicarb 36, BUN 17, creatinine 1.05, glucose 129. Lactic 1.9. LFTs unremarkable. Troponin 0.018. NT proBNP 2640.. TSH 0.827. Patient is currently being evaluated in the ED he is on 5 L/min nasal cannula. No acute distress. States that he does wear home O2, but unsure of flow rate. His heart rate appears to be in sinus mechanism. Did receive 10 mg of IV Cardizem earlier. Continues on IV heparin d rip. Normal saline also infusing at 75 mm/h. Afebrile. Empirically placed on doxycycline in the ED. Review of Systems Constitutional: Denies chills, Denies fever, Denies poor appetite, Denies weight gain, Denies weight loss Ears, nose, mouth and throat: Reports nasal discharge, Reports sore throat, Denies headache, Denies nasal congestion, Denies post-nasal drip, Denies sinus pain, Denies sinus pressure Cardiovascular: Reports dyspnea on exertion, Reports palpitations, Reports rapid heart beat, Denies chest pain, Denies leg edema, Denies orthopnea, Denies paroxysmal nocturnal dyspnea, Denies syncope Respiratory: Reports as per HPI Gastrointestinal: Denies abdominal pain, Denies change in bowel habits, Denies constipation, Denies diarrhea, Denies nausea, Denies vomiting Genitourinary: Denies dysuria Musculoskeletal: Denies limitation of motion Integumentary: Denies rash Neurological: Reports memory loss, Denies seizures, Denies syncope Psychiatric: Denies anxiety, Denies depression Past Medical History Past Medical History: Coronary Artery Disease (CAD), Chest Pain / Angina, COPD, Dementia, Diabetes Mellitus, Deep Vein Thrombosis (DVT), Eye Disorder, GERD/Reflux, Hyperlipidemia, Hypertension, Memory Impairment, Pneumonia, Prostate Disorder, Pulmonary Embolus (PE) Additional Past Medical History / Comment(s): Kidney stones, Eye lens issue History of Any Multi-Drug Resistant Organisms: None Reported Past Surgical History: Heart Catheterization With Stent Additional Past Surgical History / Comment(s): Stents in legs, Lens replacememt, Kidney stone removal sx Past Anesthesia/Blood Transfusion Reactions: No Reported Reaction Date of Last Stent Placement:: 05/05/18 Past Psychological History: No Psychological Hx Reported Smoking Status: Current every day smoker Past Alcohol Use History: Occasional Additional Past Alcohol Use History / Comment(s): Pt no longer drinks Past Drug Use History: None Reported - Past Family History Mother Family Medical History: No Reported History Father Family Medical History: No Reported History Medications and Allergies Home Medications Medication Instructions Recorded Confirmed Type Ferrous Sulfate [Iron (65 MG 325 mg PO Q2D 11/17/23 03/03/24 History Elemental)] Melatonin 3 mg PO HS PRN 11/17/23 03/03/24 History Nitroglycerin Sl Tabs [Nitrostat] 0.4 mg SUBLINGUAL Q5M PRN 11/17/23 03/03/24 History Albuterol Sulfate [Albuterol 2 puff PO RT-QID PRN 11/18/23 03/03/24 History Sulfate Hfa] Atorvastatin Calcium [Lipitor] 80 mg PO HS 11/18/23 03/03/24 History Cholecalciferol [Vitamin D3 (25 25 mcg PO DAILY 11/18/23 03/03/24 History Mcg = 1000 Iu)] Docusate [Colace] 100 mg PO BID PRN 11/18/23 03/03/24 History Insulin Glargine,Hum.rec.anlog 20 units SQ DAILY 11/18/23 03/03/24 History [Lantus Solostar Pen] Metoprolol Succinate [Toprol XL] 200 mg PO DAILY 11/18/23 03/03/24 History Pantoprazole Sodium [Protonix] 40 mg PO DAILY 11/18/23 03/03/24 History Tiotropium 2.5 Mcg/Puff [Spiriva 2 puff INHALATION RT-DAILY 11/18/23 03/03/24 History Respimat 2.5 Mcg] lisinopriL 40 mg PO DAILY 11/18/23 03/03/24 History Diltiazem Cd [Cardizem CD] 120 mg PO DAILY #60 cap 11/21/23 03/03/24 Rx Doxazosin [Cardura] 4 mg PO DAILY 03/03/24 03/03/24 History Furosemide [Lasix] 20 mg PO DAILY 03/03/24 03/03/24 History Levofloxacin [Levaquin] 500 mg PO DAILY 03/03/24 03/03/24 History Rivaroxaban [Xarelto] 15 mg PO DAILY 03/03/24 03/03/24 History predniSONE [Deltasone] 40 mg PO DAILY 03/03/24 03/03/24 History Allergies Allergy/AdvReac Type Severity Reaction Status Date / Time Penicillins Allergy Swelling Verified 03/03/24 15:01 alprazolam [From Xanax] AdvReac Hallucinati Verified 03/03/24 15:01 ons lorazepam AdvReac Hallucinati Verified 03/03/24 15:01 ons meperidine [From Demerol] AdvReac Hallucinati Verified 03/03/24 15:01 ons Physical Exam Vitals: Vital Signs Temp Pulse Pulse Resp BP BP Pulse Ox 03/03/24 23:34 73 18 142/57 94 L 03/03/24 20:34 74 18 143/66 94 L 03/03/24 18:07 97.9 F 95 18 128/74 95 03/03/24 15:30 98 03/03/24 15:00 151 H 16 124/86 95 03/03/24 14:45 103 H 18 73/53 93 L 03/03/24 14:04 100 03/03/24 13:45 82 03/03/24 13:05 16 03/03/24 12:59 98.1 F 90 16 131/94 92 L Intake and Output 03/03/24 03/03/24 03/04/24 14:59 22:59 06:59 Intake Total 72.990 Output Total 300 Balance -227.010 Intake: Intake, IV Titration 72.990 Amount Diltiazem 125 mg In 13.333 Sodium Chloride 0.9% 100 ml @ 5 MG/HR 5 mls/hr IV .Q24H KENDRA Rx#:[id number] Heparin Sod,Pork in 0.45% 59.657 NaCl 25,000 unit In 0.45 % NaCl 1 250ml.bag @ 12 UNITS/KG/HR 8.709 mls/hr IV .Q24H KENDRA Rx#: [id number] Output: Urine 300 Other: Voiding Method Urinal Urinal Weight 72.575 kg GENERAL EXAM: Alert, 83-year-old white male, sitting at the edge of the bed, no acute distress. HEAD: Normocephalic and atraumatic EYES: Normal reaction of pupils, equal size. NOSE: Clear with pink turbinates. THROAT: No erythema or exudates. NECK: No masses, no JVD. CHEST: No chest wall deformity. LUNGS: Equal air entry with no crackles, wheeze, rhonchi or dullness. On 5 L/min nasal cannula. No conversational dyspnea or accessory muscle use.. CVS: S1 and S2 normal with no audible murmur, regular rhythm. No extra heart sounds ABDOMEN: No hepatosplenomegaly, active bowel sounds, no guarding or rigidity. SPINE: No scoliosis or deformity SKIN: No rashes CENTRAL NERVOUS SYSTEM: No focal deficits, tone is normal in all 4 extremities. EXTREMITIES: There is no peripheral edema, clubbing, or cyanosis. Peripheral pulses are intact. Results - Laboratory Findings CBC and BMP: 03/03/24 13:14 03/03/24 13:14 PT/INR, D-dimer PT 11.3 sec (10.0-12.5) 03/03/24 13:14 INR 1.0 (<1.2) 03/03/24 13:14 Abnormal lab findings: Abnormal Labs 03/03/24 03/03/24 03/03/24 13:14 13:14 20:26 WBC 15.4 H RBC 4.19 L MCV 104.8 H Plt Count 149 L Neutrophils # 13.9 H Lymphocytes # 0.6 L APTT Potassium 3.0 L Chloride 96 L Carbon Dioxide 36 H Glucose 129 H POC Glucose (mg/dL) 535 H* Magnesium 1.5 L 03/03/24 03/03/24 03/04/24 20:30 21:54 00:53 WBC RBC MCV Plt Count Neutrophils # Lymphocytes # APTT 34.2 H Potassium Chloride Carbon Dioxide Glucose POC Glucose (mg/dL) 563 H* 223 H Magnesium - Diagnostic Findings Chest x-ray: image reviewed Assessment and Plan Assessment: Atrial fibrillation with rapid ventricular response, currently sinus mechanism, on IV heparin protocol Acute on chronic hypoxemic respiratory failure, likely secondary to above, chest x-ray showing cardiomegaly with suspected lingular atelectasis or possible infiltrate. Acute leukocytosis Possible acute COPD exacerbation Chronic hypoxemic respiratory failure, secondary to above Chronic ongoing tobacco dependence, usually smokes 1 to 2 packs/day Hypokalemia, replaced Hypertension History of hyperlipidemia Diabetes mellitus History of DVT/PE, Xarelto listed as home medication History of dementia/memory impairment Plan: Patient's medications, labs, chest x-ray reviewed Continue supplemental oxygen, currently on 3 L/min nasal cannula, maintain oxygen saturation of 92% or greater COPD does not appear active on my evaluation. Not in any distress. Currently receiving doxycycline Check procalcitonin Check Cepheid 4 Plex Smoking cessation counseling performed greater than 3 minutes Nicotine patch offered Appears sinus mechanism on bedside monitor. Continuous on IV heparin protocol. Cardiology consulted We will continue to follow I have personally seen and examined the patient, performed the documentation and the assessment and plan as written. Number of minutes spent on the visit:20 Time with Patient: Greater than 30
[2024-03-04 06:12] LABS: Glucose,Whole Blood 177 mg/dL (70-110)
[2024-03-04 07:05] LABS: Basophils % (A) 0 %; Eosinophils % (A) 0 %; HCT 38.3 % (39.0-53.0); HGB 12.7 gm/dL (13.0-17.5); Lymphocytes # (A) 0.5 k/uL (1.0-4.8); Lymphocytes % (A) 5 %; MCH 34.8 pg (25.0-35.0); MCHC 33.1 g/dL (31.0-37.0); MCV 105.3 fL (80.0-100.0); Macrocytosis Moderate; Mean Platelet Volume 8.9; Monocytes # (A) 0.7 k/uL (0-1.0); Monocytes % (A) 6 %; Neutrophils # (A) 9.3 k/uL (1.3-7.7); Neutrophils % (A) 88 %; Platelet Count 119 k/uL (150-450); RBC 3.63 m/uL (4.30-5.90); RDW 14.2 % (11.5-15.5); WBC 10.5 k/uL (3.8-10.6)
[2024-03-04 07:22] LABS: ALT 16 U/L (4-49); AST 18 U/L (17-59); African American GFR (CKD) 64 (>60 ml/min/1.73 sqM); Albumin 3.1 g/dL (3.5-5.0); Alkaline Phosphatase 63 U/L (38-126); Blood Urea Nitrogen 26 mg/dL (9-20); Calcium 8.6 mg/dL (8.4-10.2); Chloride 96 mmol/L (98-107); Glucose 183 mg/dL (74-99); Non-African American GFR(CKD) 55 (>60 ml/min/1.73 sqM); Phosphorus 2.8 mg/dL (2.5-4.5); Potassium 3.9 mmol/L (3.5-5.1); Sodium 137 mmol/L (137-145); Total Bilirubin 0.5 mg/dL (0.2-1.3); Total Protein 5.6 g/dL (6.3-8.2)
[2024-03-04 07:24] LABS: Glucose,Whole Blood 178 mg/dL (70-110)
[2024-03-04 07:29] LABS: Anion Gap 3 mmol/L
[2024-03-04 07:33] LABS: Carbon Dioxide 38 mmol/L (22-30)
[2024-03-04] MEDS ORDERED: IPRATROPIUM 0.5 MG/2.5 ML NEBU INHALATION SCH (08:00)
[2024-03-04] MEDS: IPRATROPIUM-ALBUTEROL 3 ML NEB INHALATION SCH (08:04)
[2024-03-04] MEDS ORDERED: PANTOPRAZOLE 40 MG TABLET PO SCH (09:00)
[2024-03-04 09:08] VITALS: RESP 18
[2024-03-04] MEDS: ASPIRIN 81 MG PO SCH (09:08)
[2024-03-04] MEDS: FUROSEMIDE 20 MG TAB PO SCH (09:08)
[2024-03-04] MEDS: DILTIAZEM CD 120 MG CAP.ER.24H PO SCH (09:08)
[2024-03-04] MEDS: lisinopriL 20 MG TAB PO SCH (09:09)
[2024-03-04] MEDS: CHOLECALCIFEROL 25 MCG (1000 IU) TABLET PO SCH (09:09)
[2024-03-04] MEDS: predniSONE 20 MG TAB PO SCH (09:09)
[2024-03-04] MEDS: METOPROLOL SUCCINATE (ER) 100 MG TAB.ER.24H PO SCH (09:10)
[2024-03-04] MEDS: DOXAZOSIN 4 MG TAB PO SCH (09:10)
[2024-03-04] MEDS: FERROUS SULFATE 325 MG TAB PO SCH (09:10)
[2024-03-04] MEDS: PANTOPRAZOLE 40 MG/10 ML VIAL IV SCH (09:10)
[2024-03-04] MEDS: INSULIN DETEMIR (LEVEMIR) 100 UNIT/ML SYR SQ SCH (09:11)
[2024-03-04] MEDS: APIXABAN 5 MG TAB PO SCH (09:13)
--- NOTE | 2024-03-04 11:34 | P.CRDCN ---
History of Present Illness History of present illness: HISTORY OF PRESENT ILLNESS: This is a 83-year-old male with a past medical history significant for coronary artery disease with previous stenting, peripheral vascular disease, hypertensio n, hyperlipidemia, PE, COPD with home oxygen, and nicotine dependence. Patient does not follow with a social scientist. We have been asked to see the patient in consultation for atrial fibrillation. Patient examined at the bedside in the emergency room. Patient states he presented to the hospital with a chief complaint of shortness of breath. Patient reports he was also having palpitations and felt dizzy. EKG on admission reveals atrial fibrillation/atrial flutter. Patient was started on IV heparin. During examination this morning, patient converted to sinus mechanism. DIAGNOSTICS: - EKG reveals atrial fibrillation/flutter with RVR - Chest xray negative for acute process. Lingular atelectasis. Cardiomegaly. - Laboratory data: WBC 10.5. Hemoglobin 12.7. Platelet count 119. Sodium 137. Potassium 3.9. BUN 26. Creatinine 1.2. Troponin negative x 3. proBNP 2640. - Current home cardiac medications include lisinopril 40 mg daily, Lasix 20 mg daily, Lipitor 80 mg at night, Xarelto 15 mg daily, metoprolol succinate 200 mg daily, Cardizem CD 120 mg daily. - Most recent echocardiogram obtained in November 2023 reveals ejection fraction 55%, mild MR, mild TR REVIEW OF SYSTEMS: At the time of my exam: CONSTITUTIONAL: Denies fever or chills. HEENT: Denies blurred vision, vision changes, or eye pain. Denies hemoptysis CARDIOVASCULAR: Denies chest pain. Denies orthopnea. Denies PND. Denies palpitations RESPIRATORY: Denies shortness of breath. GASTROINTESTINAL: Denies abdominal pain. Denies nausea or vomiting. HEMATOLOGIC: Denies bleeding disorders. GENITOURINARY: Denies any blood in urine. SKIN: Denies pruitis. Denies rash. PHYSICAL EXAM: VITAL SIGNS: Reviewed. GENERAL: Well-developed in no acute distress. HEENT: Head is normocephalic. Pupils are equal, round. Sclerae anicteric. Mucous membranes of the mouth are moist. Neck supple. No JVD or thyromegaly LUNGS: Respirations even and unlabored. Lungs essentially clear to auscultation bilaterally. HEART: Regular rate and rhythm. S1 and S2 heard. ABDOMEN: Soft. Nondistended. Nontender. EXTREMITIES: Normal range of motion. No clubbing or cyanosis. Peripheral pulses intact. No lower extremity edema NEUROLOGIC: Awake and alert. Oriented x 3. ASSESSMENT: Shortness of breath Palpitations New onset atrial fibrillation/typical atrial flutter with RVR, currently maintaining sinus mechanism Reported history of CAD with previous stenting, details unknown History of PE, on Xarelto outpatient Peripheral vascular disease Hypertension Hyperlipidemia COPD with home oxygen use Nicotine dependence PLAN: No need to repeat echocardiogram as this was performed in November 2023 TSH checked and within normal limits Discontinue IV heparin. Resume Xarelto. Increase dosage to 20 mg for appropriate thromboembolic protection. Continue additional home cardiac medications Continue telemetry monitoring Patient may be discharged today from a cardiac standpoint Further recommendations pending patient course Nurse practitioner note has been reviewed by physician. Signing provider agrees with the documented findings, assessment, and plan of care documented by NATURAL RESOURCE OFFICER as a scribe. Past Medical History Past Medical History: Coronary Artery Disease (CAD), Chest Pain / Angina, COPD, Dementia, Diabetes Mellitus, Deep Vein Thrombosis (DVT), Eye Disorder, GERD/Reflux, Hyperlipidemia, Hypertension, Memory Impairment, Pneumonia, Prostate Disorder, Pulmonary Embolus (PE) Additional Past Medical History / Comment(s): Kidney stones, Eye lens issue History of Any Multi-Drug Resistant Organisms: None Reported Past Surgical History: Heart Catheterization With Stent Additional Past Surgical History / Comment(s): Stents in legs, Lens replacememt, Kidney stone removal sx Past Anesthesia/Blood Transfusion Reactions: No Reported Reaction Date of Last Stent Placement:: 05/05/18 Past Psychological History: No Psychological Hx Reported Smoking Status: Current every day smoker Past Alcohol Use History: Occasional Additional Past Alcohol Use History / Comment(s): Pt no longer drinks Past Drug Use History: None Reported - Past Family History Mother Family Medical History: No Reported History Father Family Medical History: No Reported History Medications and Allergies Home Medications Medication Instructions Recorded Confirmed Type Ferrous Sulfate [Iron (65 MG 325 mg PO Q2D 11/17/23 03/03/24 History Elemental)] Melatonin 3 mg PO HS PRN 11/17/23 03/03/24 History Nitroglycerin Sl Tabs [Nitrostat] 0.4 mg SUBLINGUAL Q5M PRN 11/17/23 03/03/24 History Albuterol Sulfate [Albuterol 2 puff PO RT-QID PRN 11/18/23 03/03/24 History Sulfate Hfa] Atorvastatin Calcium [Lipitor] 80 mg PO HS 11/18/23 03/03/24 History Cholecalciferol [Vitamin D3 (25 25 mcg PO DAILY 11/18/23 03/03/24 History Mcg = 1000 Iu)] Docusate [Colace] 100 mg PO BID PRN 11/18/23 03/03/24 History Insulin Glargine,Hum.rec.anlog 20 units SQ DAILY 11/18/23 03/03/24 History [Lantus Solostar Pen] Metoprolol Succinate [Toprol XL] 200 mg PO DAILY 11/18/23 03/03/24 History Pantoprazole Sodium [Protonix] 40 mg PO DAILY 11/18/23 03/03/24 History Tiotropium 2.5 Mcg/Puff [Spiriva 2 puff INHALATION RT-DAILY 11/18/23 03/03/24 History Respimat 2.5 Mcg] lisinopriL 40 mg PO DAILY 11/18/23 03/03/24 History Diltiazem Cd [Cardizem CD] 120 mg PO DAILY #60 cap 11/21/23 03/03/24 Rx Doxazosin [Cardura] 4 mg PO DAILY 03/03/24 03/03/24 History Furosemide [Lasix] 20 mg PO DAILY 03/03/24 03/03/24 History Levofloxacin [Levaquin] 500 mg PO DAILY 03/03/24 03/03/24 History Rivaroxaban [Xarelto] 15 mg PO DAILY 03/03/24 03/03/24 History predniSONE [Deltasone] 40 mg PO DAILY 03/03/24 03/03/24 History Allergies Allergy/AdvReac Type Severity Reaction Status Date / Time Penicillins Allergy Swelling Verified 03/03/24 15:01 alprazolam [From Xanax] AdvReac Hallucinati Verified 03/03/24 15:01 ons lorazepam AdvReac Hallucinati Verified 03/03/24 15:01 ons meperidine [From Demerol] AdvReac Hallucinati Verified 03/03/24 15:01 ons Physical Exam Vitals: Vital Signs Temp Pulse Pulse Resp BP BP Pulse Ox 03/04/24 08:17 80 10/31/24 08:05 72 03/04/24 04:00 68 16 154/75 95 03/03/24 23:34 73 18 142/57 94 L 03/03/24 20:34 74 18 143/66 94 L 03/03/24 18:07 97.9 F 95 18 128/74 95 03/03/24 15:30 98 03/03/24 15:00 151 H 16 124/86 95 03/03/24 14:45 103 H 18 73/53 93 L 03/03/24 14:04 100 03/03/24 13:45 82 03/03/24 13:05 16 03/03/24 12:59 98.1 F 90 16 131/94 92 L Intake and Output 03/03/24 03/04/24 03/04/24 22:59 06:59 14:59 Intake Total 72.990 Output Total 300 300 Balance -227.010 -300 Intake: Intake, IV Titration 72.990 Amount Diltiazem 125 mg In 13.333 Sodium Chloride 0.9% 100 ml @ 5 MG/HR 5 mls/hr IV .Q24H [facility] Rx#:[id number] Heparin Sod,Pork in 0.45% 59.657 NaCl 25,000 unit In 0.45 % NaCl 1 250ml.bag @ 12 UNITS/KG/HR 8.709 mls/hr IV .Q24H [facility] Rx#: [id number] Output: Urine 300 300 Other: Voiding Method Urinal Urinal Results 03/04/24 06:43 03/04/24 06:43 Cardiac Enzymes 03/03/24 03/03/24 03/03/24 Range/Units 13:14 13:14 17:05 AST 20 (17-59) U/L Troponin I 0.016 0.020 (0.000-0.034) ng/mL 03/03/24 03/04/24 Range/Units 20:04 06:43 AST 18 (17-59) U/L Troponin I 0.018 (0.000-0.034) ng/mL Coagulation 03/03/24 03/03/24 03/04/24 Range/Units 13:14 21:54 06:43 PT 11.3 (10.0-12.5) sec APTT 22.3 34.2 H 58.7 H (22.0-30.0) sec CBC 03/03/24 03/04/24 Range/Units 13:14 06:43 WBC 15.4 H 10.5 (3.8-10.6) k/uL RBC 4.19 L 3.63 L (4.30-5.90) m/uL Hgb 14.4 12.7 L (13.0-17.5) gm/dL Hct 43.9 38.3 L (39.0-53.0) % Plt Count 149 L 119 L (150-450) k/uL Comprehensive Metabolic Panel 03/03/24 03/04/24 Range/Units 13:14 06:43 Sodium 141 137 (137-145) mmol/L Potassium 3.0 L 3.9 (3.5-5.1) mmol/L Chloride 96 L 96 L (98-107) mmol/L Carbon Dioxide 36 H 38 H (22-30) mmol/L BUN 17 26 H (9-20) mg/dL Creatinine 1.05 1.20 (0.66-1.25) mg/dL Glucose 129 H 183 H (74-99) mg/dL Calcium 8.9 8.6 (8.4-10.2) mg/dL AST 20 18 (17-59) U/L ALT 20 16 (4-49) U/L Alkaline Phosphatase 69 63 (38-126) U/L Total Protein 6.8 5.6 L (6.3-8.2) g/dL Albumin 3.9 3.1 L (3.5-5.0) g/dL Current Medications Generic Name Dose Route Start Last Admin Trade Name Freq PRN Reason Stop Dose Admin Albuterol/Ipratropium 3 ml 03/04/24 08:00 03/04/24 08:04 Ipratropium-Albuterol 3 Ml Neb INHALATION 3 ml RT-QID KENDRA Administration Aspirin 81 mg 03/04/24 09:00 Aspirin 81 Mg PO DAILY KENDRA Atorvastatin Calcium 80 mg 03/03/24 21:00 03/03/24 21:16 Atorvastatin 80 Mg Tab PO 80 mg HS KENDRA Administration Cholecalciferol 25 mcg 03/04/24 09:00 Cholecalciferol 25 Mcg (1000 Iu) Tablet PO DAILY [facility] Dextrose/Water 25 ml 03/03/24 18:44 Dextrose 50% Syringe 50 Ml IVP PER PROTOCOL PRN Hypoglycemia Protocol Dextrose/Water 50 ml 03/03/24 18:44 Dextrose 50% Syringe 50 Ml IVP PER PROTOCOL PRN Hypoglycemia Protocol Diltiazem HCl 120 mg 03/04/24 09:00 Diltiazem Cd 120 Mg Cap.Er.24h PO DAILY [facility] Docusate Sodium 100 mg 03/03/24 17:32 Docusate 100 Mg Cap PO BID PRN Constipation Doxazosin Mesylate 4 mg 03/04/24 09:00 Doxazosin 4 Mg Tab PO DAILY [facility] Doxycycline Monohydrate 100 mg 03/03/24 21:00 03/03/24 21:17 Doxycycline 100 Mg Cap PO 03/08/24 20:59 100 mg BID KENDRA Administration Ferrous Sulfate 325 mg 03/04/24 09:00 Ferrous Sulfate 325 Mg Tab PO Q2D [facility] Furosemide 20 mg 03/04/24 09:00 Furosemide 20 Mg Tab PO DAILY [facility] Heparin Sodium (Porcine) 0 unit 03/03/24 14:56 03/03/24 22:41 Heparin Sodium 1,000 Un/Ml (10ml Vl) IV 3,628 unit PER PROTOCOL PRN Administration Low PTT Protocol Heparin Sodium/Sodium Chloride 250 mls @ 8.709 mls/hr 03/03/24 15:00 03/03/24 22:38 25,000 unit/ Sodium Chloride IV 15 units/kg/hr .Q24H KENDRA 10.886 mls/hr Titration Protocol 12 UNITS/KG/HR Sodium Chloride 1,000 mls @ 75 mls/hr 03/03/24 15:00 03/04/24 05:37 Saline 0.9% IV Not Given .[id number] [facility] Insulin Aspart 0 unit 03/03/24 21:00 03/04/24 06:51 Insulin Aspart (Novolog) 100 Unit/Ml Vial SQ 4 unit ACHS KENDRA Administration Protocol Insulin Detemir 20 unit 03/04/24 09:00 Insulin Detemir (Levemir) 100 Unit/Ml Syr SQ DAILY [facility] Lisinopril 40 mg 03/04/24 09:00 Lisinopril 20 Mg Tab PO DAILY [facility] Melatonin 3 mg 03/03/24 17:32 03/03/24 22:20 Melatonin 3 Mg Tablet PO 3 mg HS PRN Administration Insomnia Metoprolol Succinate 200 mg 03/04/24 09:00 Metoprolol Succinate (Er) 100 Mg Tab.Er.24h PO DAILY [facility] Morphine Sulfate 4 mg 03/03/24 14:57 Morphine Sulfate 4 Mg/Ml Syringe IV Q4HR PRN Severe Pain (Scale 7 to 10) Naloxone HCl 0.2 mg 03/03/24 14:57 Naloxone 0.4 Mg/Ml 1 Ml Vial IV Q2M PRN Opioid Reversal Nitroglycerin 0.4 mg 03/03/24 17:32 Nitroglycerin Sl Tabs 0.4 Mg Tab SUBLINGUAL Q5M PRN Chest Pain Ondansetron HCl 4 mg 03/03/24 14:57 Ondansetron 4 Mg/2 Ml Vial IVP Q8HR PRN Nausea And Vomiting Pantoprazole Sodium 40 mg 03/04/24 09:00 Pantoprazole 40 Mg/10 Ml Vial IV DAILY [facility] Prednisone 40 mg 03/04/24 09:00 Prednisone 20 Mg Tab PO 03/09/24 08:59 DAILY [facility] Intake and Output 03/03/24 03/04/24 03/04/24 22:59 06:59 14:59 Intake Total 72.990 Output Total 300 300 Balance -227.010 -300 Intake: Intake, IV Titration 72.990 Amount Diltiazem 125 mg In 13.333 Sodium Chloride 0.9% 100 ml @ 5 MG/HR 5 mls/hr IV .Q24H [facility] Rx#:[id number] Heparin Sod,Pork in 0.45% 59.657 NaCl 25,000 unit In 0.45 % NaCl 1 250ml.bag @ 12 UNITS/KG/HR 8.709 mls/hr IV .Q24H [facility] Rx#: [id number] Output: Urine 300 300 Other: Voiding Method Urinal Urinal 03/04/24 06:43 03/04/24 06:43
[2024-03-04 12:04] LABS: Glucose,Whole Blood 181 mg/dL (70-110)
--- NOTE | 2024-03-04 13:12 | P.DS ---
Providers Date of admission: 03/03/24 14:57 Attending physician: Erika Ibanez MD Consults: 03/03/24 14:57 Consult Physician Routine Consulting Provider: Ross Lopez Consult Reason/Comments: copd Do you want consulting provider notified?: Yes Consult Physician Routine Consulting Provider: Abbie Nath Consult Reason/Comments: afibRVR Do you want consulting provider notified?: Yes Primary care physician: [facility] Hospital Course: Discharge Diagnosis: Atrial fibrillation Chest pain likely due to the above COPD exacerbation History of PE Chronic hypoxic hypercapnic respiratory failure Hypokalemia hypomagnesemia Insulin-dependent diabetes mellitus Hypertension Hyperlipidemia Dementia with short-term memory loss Hospital Course: Patient is a very pleasant 83-year-old male that follows with a past medical history of CAD status post stenting, peripheral vascular disease status post stenting to bilateral legs, hypertension, hyperlipidemia, dementia with short- term memory impairment, history of PE on anticoagulant with Xarelto, BPH, and COPD with chronic hypoxic respiratory failure home oxygen dependent on 3 L with continued nicotine dependence. He presented to the emergency department via EMS with a chief complaint of acute on chronic shortness of breath and chest pain. wilmer is a poor historian but does report that he follows with [facility] and states that he was recently seen by a PA there and was "started on and antibiotic and some steroids for my COPD". Patient reports over the past couple of days he feels his breathing has worsened and today he also started feeling chest pain that he described as a "funny feeling, like something ain't right in my chest", Pt states his nurse came to check on him and there was something wrong with my oxygen level so she called for an ambulance to take him to the hospital. Patient currently reports chest pain has resolved and shortness of breath has improved since arriving to our facility. ital signs upon arrival show blood pressure 131/94, heart rate 98, respiratory rate 16, temp 98.1 F, and SpO2 of 92% on 3 L. Chest X-ray was completed negative for acute cardiopu lmonary process showing lingular atelectasis and cardiomegaly. In the ED patient WBC was 15.4, potassium 3.0, magnesium 1.5, troponin within normal limits. Patient was given IV Solu-Medrol. EKG showed A-fib with RVR. Patient was then referred for admission. Patient was started on steroids breathing treatments and antibiotics for the COPD exacerbation. Patient's potassium and magnesium were replaced. The following day patient felt much better. He was back in normal sinus rhythm. Potassium was 3.9. Magnesium 2.0. Patient was seen by cardiology and pulmonology who both cleared the patient for discharge. Cardiology recommended to increase patient's Xarelto to 20 mg. Patient seen and examined at bedside.[] Vital signs reviewed and stable. General examination - Alert and Oriented 3 in NAD Heart - + S1S2 no murmurs Lungs - Clear to auscultation Abdomen soft NT ND +ve BS Extremities - No edema USED [employer]GER - Moving all 4 extremities spontaneously Psych - Calm and cooperative A total of [33] minutes of time were spent preparing this complex discharge summary . Patient discharged on [03/04/2024] Patient Condition at Discharge: Good Plan - Discharge Summary New Discharge Prescriptions: New predniSONE [Deltasone] 40 mg PO DAILY 4 Days #8 tab Doxycycline [Vibramycin] 100 mg PO BID 4 Days #8 cap Rivaroxaban [Xarelto] 20 mg PO HS 30 Days #30 tab Continue Insulin Glargine,Hum.rec.anlog [Lantus Solostar Pen] 20 units SQ DAILY Atorvastatin Calcium [Lipitor] 80 mg PO HS Tiotropium 2.5 Mcg/Puff [Spiriva Respimat 2.5 Mcg] 2 puff INHALATION RT-DAILY Metoprolol Succinate [Toprol XL] 200 mg PO DAILY Doxazosin [Cardura] 4 mg PO DAILY Nitroglycerin Sl Tabs [Nitrostat] 0.4 mg SUBLINGUAL Q5M PRN PRN Reason: Chest Pain Melatonin 3 mg PO HS PRN PRN Reason: Insomnia Ferrous Sulfate [Iron (65 MG Elemental)] 325 mg PO Q2D lisinopriL 40 mg PO DAILY Pantoprazole Sodium [Protonix] 40 mg PO DAILY Docusate [Colace] 100 mg PO BID PRN PRN Reason: Constipation Cholecalciferol [Vitamin D3 (25 Mcg = 1000 Iu)] 25 mcg PO DAILY Albuterol Sulfate [Albuterol Sulfate Hfa] 2 puff PO RT-QID PRN PRN Reason: Shortness Of Breath Diltiazem Cd [Cardizem CD] 120 mg PO DAILY #60 cap Furosemide [Lasix] 20 mg PO DAILY Discontinued Rivaroxaban [Xarelto] 15 mg PO DAILY predniSONE [Deltasone] 40 mg PO DAILY Levofloxacin [Levaquin] 500 mg PO DAILY Discharge Medication List Ferrous Sulfate [Iron (65 MG Elemental)] 325 mg PO Q2D 11/17/23 [History] Melatonin 3 mg PO HS PRN 11/17/23 [History] Nitroglycerin Sl Tabs [Nitrostat] 0.4 mg SUBLINGUAL Q5M PRN 11/17/23 [History] Albuterol Sulfate [Albuterol Sulfate Hfa] 2 puff PO RT-QID PRN 11/18/23 [History] Atorvastatin Calcium [Lipitor] 80 mg PO HS 11/18/23 [History] Cholecalciferol [Vitamin D3 (25 Mcg = 1000 Iu)] 25 mcg PO DAILY 11/18/23 [History] Docusate [Colace] 100 mg PO BID PRN 11/18/23 [History] Insulin Glargine,Hum.rec.anlog [Lantus Solostar Pen] 20 units SQ DAILY 11/18/23 [History] Metoprolol Succinate [Toprol XL] 200 mg PO DAILY 11/18/23 [History] Pantoprazole Sodium [Protonix] 40 mg PO DAILY 11/18/23 [History] Tiotropium 2.5 Mcg/Puff [Spiriva Respimat 2.5 Mcg] 2 puff INHALATION RT-DAILY 11/18/23 [History] lisinopriL 40 mg PO DAILY 11/18/23 [History] Diltiazem Cd [Cardizem CD] 120 mg PO DAILY #60 cap 11/21/23 [Rx] Doxazosin [Cardura] 4 mg PO DAILY 03/03/24 [History] Furosemide [Lasix] 20 mg PO DAILY 03/03/24 [History] Doxycycline [Vibramycin] 100 mg PO BID 4 Days #8 cap 03/04/24 [Rx] Rivaroxaban [Xarelto] 20 mg PO HS 30 Days #30 tab 03/04/24 [Rx] predniSONE [Deltasone] 40 mg PO DAILY 4 Days #8 tab 03/04/24 [Rx] Follow up Appointment(s)/Referral(s): Kwaku Garcia MD [STAFF PHYSICIAN] - 1 Week Ross Lopez DO [Doctor of Osteopathic Medicine] - 1 Week [facility] [Primary Care Provider] - 1-2 days Discharge Disposition: HOME SELF-CARE
[2024-03-04 14:50] VITALS: BP 159/73; PULSE 70; TEMP 97.5
[2024-03-04] MEDS ORDERED: RIVAROXABAN 15 MG TAB PO SCH (17:30)
== END 2024-03-04 14:47 | disposition home or self-care (01) ==
LOC: EC 12:56 → INTOOBSV 14:57 → 3SCARD 14:57
PROVIDERS: ADMIT Internal Medicine; ATTEND Internal Medicine
DX: J44.1 Chronic obstructive pulmonary disease with (acute) exacerbation (principal); J96.21 Acute and chronic respiratory failure with hypoxia; J96.22 Acute and chronic respiratory failure with hypercapnia; I48.91 Unspecified atrial fibrillation; R53.1 Weakness; D72.829 Elevated white blood cell count, unspecified; E87.6 Hypokalemia; E83.42 Hypomagnesemia; I25.10 Atherosclerotic heart disease of native coronary artery without angina pectoris; E11.51 Type 2 diabetes mellitus with diabetic peripheral angiopathy without gangrene; F03.90 Unspecified dementia, unspecified severity, without behavioral disturbance, psychotic disturbance, mood disturbance, and anxiety; K21.9 Gastro-esophageal reflux disease without esophagitis; E78.5 Hyperlipidemia, unspecified; I10 Essential (primary) hypertension; N40.0 Benign prostatic hyperplasia without lower urinary tract symptoms; F17.200 Nicotine dependence, unspecified, uncomplicated; Z86.711 Personal history of pulmonary embolism; Z86.718 Personal history of other venous thrombosis and embolism; Z95.5 Presence of coronary angioplasty implant and graft; Z95.820 Peripheral vascular angioplasty status with implants and grafts; Z99.81 Dependence on supplemental oxygen; Z79.01 Long term (current) use of anticoagulants; Z79.4 Long term (current) use of insulin; Z79.899 Other long term (current) drug therapy; Z88.0 Allergy status to penicillin; Z88.5 Allergy status to narcotic agent
CPT/HCPCS: 96376; 96368; 96365 ×2; 96366 ×2; 96367; 96375; 99291; 36415; 94640 ×3; 83880; 80053 ×2; 84443; 83605; 83735 ×2; 84100; 84484; 85025 ×2; 85610; 85730 ×2; 84145; 87636; 71045; G0378 ×2; J1644 ×2; J3475; J3480; J7512; J2919; 93005; 96361

== ENCOUNTER 2024-09-10 12:11 | Inpatient (IN) | payer MEDICARE, OTHER ==
--- NOTE | 2024-09-10 14:08 | ED ---
SOB HPI - General Chief Complaint: Shortness of Breath Stated Complaint: General weakness Time Seen by Provider: 09/10/24 13:49 Source: patient Mode of arrival: wheelchair Limitations: no limitations - History of Present Illness Initial Comments: 84-year-old male who presents to the emergency department with weakness. He has a history of dementia and therefore his niece at bedside helps provide some history. She states that he has diabetes, coronary artery disease, A-fib and is on Eliquis. He had some nausea and vomiting with abdominal pain last week which then resolved. She has noted that the patient has continued to be weak and he stated that his left side seem to be weaker than his right. Symptoms have been going on for 3 days. Patient is triaged as having shortness of breath but the patient denies this. He does wear 2-1/2 L at home however states that he does not feel short of breath. He feels fatigued overall. No recent medication changes. Denies chest pain. No abdominal pain at this time. He did have some diarrhea but denies any black or bloody stools. No history of anemia. Denies fevers. Denies any changes in his urination. No other alleviating, precipitating modifying factors - Related Data Home Medications Medication Instructions Recorded Confirmed Ferrous Sulfate [Iron (65 MG 325 mg PO Q2D 11/17/23 09/10/24 Elemental)] Melatonin 3 mg PO HS PRN 11/17/23 09/10/24 Nitroglycerin Sl Tabs [Nitrostat] 0.4 mg SUBLINGUAL Q5M PRN 11/17/23 09/10/24 Albuterol Sulfate [Albuterol 2 puff INHALATION RT-QID PRN 11/18/23 09/10/24 Sulfate Hfa] Atorvastatin Calcium [Lipitor] 80 mg PO HS 11/18/23 09/10/24 Docusate [Colace] 100 mg PO BID PRN 11/18/23 09/10/24 Metoprolol Succinate [Toprol XL] 200 mg PO DAILY 11/18/23 09/10/24 Tiotropium 2.5 Mcg/Puff [Spiriva 2 puff INHALATION RT-DAILY 11/18/23 09/10/24 Respimat 2.5 Mcg] lisinopriL 40 mg PO DAILY 11/18/23 09/10/24 Doxazosin [Cardura] 4 mg PO DAILY 10/30/24 05/09/25 Furosemide [Lasix] 20 mg PO DAILY 03/03/24 09/10/24 Albuterol Nebulized [Ventolin 2.5 mg INHALATION RT-QID PRN 09/10/24 09/10/24 Nebulized] Glucerna Shake 1 can PO BID PRN 09/10/24 09/10/24 Rivaroxaban [Xarelto] 20 mg PO DAILY 09/10/24 09/10/24 Previous Rx's Medication Instructions Recorded Diltiazem Cd [Cardizem CD] 120 mg PO DAILY #60 cap 11/21/23 Allergies Allergy/AdvReac Type Severity Reaction Status Date / Time Penicillins Allergy Swelling Verified 09/10/24 14:34 alprazolam [From Xanax] AdvReac Hallucinati Verified 09/10/24 14:34 ons lorazepam AdvReac Hallucinati Verified 09/10/24 14:34 ons meperidine [From Demerol] AdvReac Hallucinati Verified 09/10/24 14:34 ons Review of Systems ROS Statement: Those systems with pertinent positive or pertinent negative responses have been documented in the HPI. ROS Other: All systems not noted in ROS Statement are negative. Past Medical History Past Medical History: Coronary Artery Disease (CAD), Chest Pain / Angina, COPD, Dementia, Diabetes Mellitus, Deep Vein Thrombosis (DVT), Eye Disorder, GERD/Reflux, Hyperlipidemia, Hypertension, Memory Impairment, Pneumonia, Prostate Disorder, Pulmonary Embolus (PE) Additional Past Medical History / Comment(s): Kidney stones, Eye lens issue History of Any Multi-Drug Resistant Organisms: None Reported Past Surgical History: Heart Catheterization With Stent Additional Past Surgical History / Comment(s): Stents in legs, Lens replacememt, Kidney stone removal sx Past Anesthesia/Blood Transfusion Reactions: No Reported Reaction Date of Last Stent Placement:: 05/05/18 Past Psychological History: No Psychological Hx Reported Smoking Status: Current every day smoker Past Alcohol Use History: Occasional Past Drug Use History: None Reported - Past Family History Mother Family Medical History: No Reported History Father Family Medical History: No Reported History General Exam Limitations: no limitations Course Vital Signs 09/10/24 09/10/24 09/10/24 12:26 14:03 15:29 Temperature 98.3 F Pulse Rate 68 73 Respiratory 22 18 18 Rate Blood Pressure 91/58 118/46 114/53 O2 Sat by Pulse 94 L 94 L 96 Oximetry 09/10/24 16:50 Temperature Pulse Rate 73 Respiratory 18 Rate Blood Pressure 117/66 O2 Sat by Pulse 98 Oximetry Medical Decision Making - Medical Decision Making Was pt. sent in by a medical professional or institution (, [facility], LEAN PROCESS DEPLOYMENT CONSULTANT, urgent care, hospital, or detention...) When possible be specific @ -[No] Did you speak to anyone other than the patient for history (EMS, parent, family, police, friend...)? What history was obtained from this source @ -[No] Did you review nursing and triage notes (agree or disagree)? Why? @ -[I reviewed and agree with nursing and triage notes] Were old charts reviewed (outside hosp., previous admission, EMS record, old EKG, old radiological studies, urgent care reports/EKG's, detention records)? Report findings @ -[No old charts were reviewed] Differential Diagnosis (chest pain, altered mental status, abdominal pain women, abdominal pain men, vaginal bleeding, weakness, fever, dyspnea, syncope, headache, dizziness, GI bleed, back pain, seizure, CVA, palpatations, mental health, musculoskeletal)? @ -[not applicable] EKG interpreted by me (3pts min.). @ -And demonstrates sinus rhythm with rate of 66. WI interval 151. QRS 101. QTc of 431. Significant artifact. No acute ST segment elevations X-rays interpreted by me (1pt min.). @ -[None done] CT interpreted by me (1pt min.). @ -[None done] U/S interpreted by me (1pt. min.). @ -[None done] What testing was considered but not performed or refused? (CT, X-rays, U/S, labs)? Why? @ -[None] What meds were considered but not given or refused? Why? @ -[None] Did you discuss the management of the patient with other professionals (professionals i.e. SHANNON Parker, LEAN PROCESS DEPLOYMENT CONSULTANT, lab, RT, psych nurse, long term care social worker, rehabilitation director, teacher, fourth officer, trimming caser)? Give summary @ -[No] Was smoking cessation discussed for >3mins.? @ -[No] Was critical care preformed (if so, how long)? @ -[No] Were there social determinants of health that impacted care today? How? (Home lessness, low income, unemployed, alcoholism, drug addiction, transportation, low edu. Level, literacy, decrease access to med. care, fdc, rehab)? @ -[No] Was there de-escalation of care discussed even if they declined (Discuss DNR or withdrawal of care, Hospice)? DNR status @ -[No] What co-morbidities impacted this encounter? (DM, HTN, Smoking, COPD, CAD, Cancer, CVA, ARF, Chemo, Hep., AIDS, mental health diagnosis, sleep apnea, morbid obesity)? @ -[None] Was patient admitted / discharged? Hospital course, mention meds given and route, prescriptions, significant lab abnormalities, going to OR and other pertinent info. @ -[hospital course] Undiagnosed new problem with uncertain prognosis? @ -[No] Drug Therapy requiring intensive monitoring for toxicity (Heparin, Nitro, Insulin, Cardizem)? @ -[No] Were any procedures done? @ -[No] Diagnosis/symptom? @ -[default] Acute, or Chronic, or Acute on Chronic? @ -[default] Uncomplicated (without systemic symptoms) or Complicated (systemic symptoms)? @ -[default] Side effects of treatment? @ -[No] Exacerbation, Progression, or Severe Exacerbation? @ -[No] Poses a threat to life or bodily function? How? (Chest pain, [place], [place], pneumonia, PE, COPD, DKA, ARF, appy, cholecystitis, CVA, Diverticulitis, Homicidal, Suicidal, threat to staff... and all critical care pts) @ -[No] - Lab Data Result diagrams: 09/10/24 14:10 09/10/24 14:10 Lab Results 09/10/24 09/10/24 09/10/24 Range/Units 14:10 14:10 14:10 WBC 5.08 (4.50-10.00) 10*3/uL RBC 1.59 L (4.40-5.60) 10*6/uL Hgb 5.6 L* (13.0-17.0) g/dL Hct 17.5 L* (39.6-50.0) % MCV 110.1 H (80.0-97.0) fL MCH 35.2 H (27.0-32.0) pg MCHC 32.0 (32.0-37.0) g/dL Plt Count 176 (140-440) 10*3/uL MPV 9.8 (9.5-12.2) fL Immature Gran % (Auto) 0.8 % Neutrophils % 63.4 % Lymphocytes % 23.6 % Monocytes % 10.4 % Eosinophils % 1.6 % Basophils % 0.2 % Immature Gran # 0.04 (0.00-0.04) 10*3/uL Neutrophils # 3.22 (1.80-7.70) 10*3/uL Lymphocytes # 1.20 (0.90-5.00) 10*3/uL Monocytes # 0.53 (0.20-1.00) 10*3/uL Eosinophils # 0.08 (0.04-0.35) 10*3/uL Basophils # 0.01 (0.00-0.10) 10*3/uL Differential Comment P Manual Slide Review Performed PT 12.7 H (10.0-12.5) sec INR 1.2 H (<1.2) APTT 23.9 (22.0-30.0) sec Sodium 138 (137-145) mmol/L Potassium 4.8 (3.5-5.1) mmol/L Chloride 103 (98-107) mmol/L Carbon Dioxide 34 H (22-30) mmol/L Anion Gap 1 mmol/L BUN 24 H (9-20) mg/dL Creatinine 1.24 (0.66-1.25) mg/dL Est GFR (CKD-EPI)AfAm 61 (>60 ml/min/1.73 sqM) Est GFR (CKD-EPI)NonAf 53 (>60 ml/min/1.73 sqM) Glucose 164 H (74-99) mg/dL Plasma Lactic Acid Laci (0.7-2.0) mmol/L Calcium 8.4 (8.4-10.2) mg/dL Total Bilirubin 0.4 (0.2-1.3) mg/dL AST 24 (17-59) U/L ALT 14 (4-49) U/L Alkaline Phosphatase 64 (38-126) U/L Troponin I (0.000-0.034) ng/mL NT-Pro-B Natriuret Pep 863 pg/mL Total Protein 5.6 L (6.3-8.2) g/dL Albumin 2.9 L (3.5-5.0) g/dL Stool Occult Blood (Negative) Blood Type Blood Type Confirm Blood Type Recheck Bld Type Recheck Status Antibody Screen Crossmatch Spec Expiration Date 09/10/24 09/10/24 09/10/24 Range/Units 14:10 14:10 15:20 WBC (4.50-10.00) 10*3/uL RBC (4.40-5.60) 10*6/uL Hgb (13.0-17.0) g/dL Hct (39.6-50.0) % MCV (80.0-97.0) fL MCH (27.0-32.0) pg MCHC (32.0-37.0) g/dL Plt Count (140-440) 10*3/uL MPV (9.5-12.2) fL Immature Gran % (Auto) % Neutrophils % % Lymphocytes % % Monocytes % % Eosinophils % % Basophils % % Immature Gran # (0.00-0.04) 10*3/uL Neutrophils # (1.80-7.70) 10*3/uL Lymphocytes # (0.90-5.00) 10*3/uL Monocytes # (0.20-1.00) 10*3/uL Eosinophils # (0.04-0.35) 10*3/uL Basophils # (0.00-0.10) 10*3/uL Differential Comment Manual Slide Review PT (10.0-12.5) sec INR (<1.2) APTT (22.0-30.0) sec Sodium (137-145) mmol/L Potassium (3.5-5.1) mmol/L Chloride (98-107) mmol/L Carbon Dioxide (22-30) mmol/L Anion Gap mmol/L BUN (9-20) mg/dL Creatinine (0.66-1.25) mg/dL Est GFR (CKD-EPI)AfAm (>60 ml/min/1.73 sqM) Est GFR (CKD-EPI)NonAf (>60 ml/min/1.73 sqM) Glucose (74-99) mg/dL Plasma Lactic Acid Alci 1.0 (0.7-2.0) mmol/L Calcium (8.4-10.2) mg/dL Total Bilirubin (0.2-1.3) mg/dL AST (17-59) U/L ALT (4-49) U/L Alkaline Phosphatase (38-126) U/L Troponin I <0.012 (0.000-0.034) ng/mL NT-Pro-B Natriuret Pep pg/mL Total Protein (6.3-8.2) g/dL Albumin (3.5-5.0) g/dL Stool Occult Blood (Negative) Blood Type A Positive Blood Type Confirm Blood Type Recheck No Previous Record Bld Type Recheck Status CABO Indicated Antibody Screen NEGATIVE Crossmatch See Detail Spec Expiration Date 09/13/2024231909/10/24 09/10/24 Range/Units 15:25 15:25 WBC (4.50-10.00) 10*3/uL RBC (4.40-5.60) 10*6/uL Hgb (13.0-17.0) g/dL Hct (39.6-50.0) % MCV (80.0-97.0) fL MCH (27.0-32.0) pg MCHC (32.0-37.0) g/dL Plt Count (140-440) 10*3/uL MPV (9.5-12.2) fL Immature Gran % (Auto) % Neutrophils % % Lymphocytes % % Monocytes % % Eosinophils % % Basophils % % Immature Gran # (0.00-0.04) 10*3/uL Neutrophils # (1.80-7.70) 10*3/uL Lymphocytes # (0.90-5.00) 10*3/uL Monocytes # (0.20-1.00) 10*3/uL Eosinophils # (0.04-0.35) 10*3/uL Basophils # (0.00-0.10) 10*3/uL Differential Comment Manual Slide Review PT (10.0-12.5) sec INR (<1.2) APTT (22.0-30.0) sec Sodium (137-145) mmol/L Potassium (3.5-5.1) mmol/L Chloride (98-107) mmol/L Carbon Dioxide (22-30) mmol/L Anion Gap mmol/L BUN (9-20) mg/dL Creatinine (0.66-1.25) mg/dL Est GFR (CKD-EPI)AfAm (>60 ml/min/1.73 sqM) Est GFR (CKD-EPI)NonAf (>60 ml/min/1.73 sqM) Glucose (74-99) mg/dL Plasma Lactic Acid Laci (0.7-2.0) mmol/L Calcium (8.4-10.2) mg/dL Total Bilirubin (0.2-1.3) mg/dL AST (17-59) U/L ALT (4-49) U/L Alkaline Phosphatase (38-126) U/L Troponin I (0.000-0.034) ng/mL NT-Pro-B Natriuret Pep pg/mL Total Protein (6.3-8.2) g/dL Albumin (3.5-5.0) g/dL Stool Occult Blood Negative (Negative) Blood Type Blood Type Confirm A Positive Blood Type Recheck Bld Type Recheck Status Antibody Screen Crossmatch Spec Expiration Date Disposition Clinical Impression: Anemia Disposition: ADMITTED IP TO THIS [facility] Condition: Stable Is patient prescribed a controlled substance at d/c from ED?: No Referrals: Omar Hobson DO [Primary Care Provider] - 1-2 days Time of Disposition: 18:00 Decision to Admit Reason: Admit from EC Decision Date: 09/10/24 Decision Time: 18:00
[2024-09-10 14:24] LABS: Basophils # (A) 0.01 10*3/uL (0.00-0.10); Basophils % (A) 0.2 %; Eosinophils # (A) 0.08 10*3/uL (0.04-0.35); Eosinophils % (A) 1.6 %; Lymphocytes % (A) 23.6 %; MCH 35.2 pg (27.0-32.0); MCV 110.1 fL (80.0-97.0); Mean Platelet Volume 9.8 fL (9.5-12.2); Monocytes # (A) 0.53 10*3/uL (0.20-1.00); Monocytes % (A) 10.4 %; Neutrophils # (A) 3.22 10*3/uL (1.80-7.70); Neutrophils % (A) 63.4 %; Platelet Count 176 10*3/uL (140-440); RBC 1.59 10*6/uL (4.40-5.60); RDW 16.7 % (11.5-14.5); WBC 5.08 10*3/uL (4.50-10.00)
[2024-09-10 14:26] LABS: INR 1.2 (<1.2); Partial Thromboplastin Time 23.9 sec (22.0-30.0); Prothrombin Time 12.7 sec (10.0-12.5)
[2024-09-10 14:28] LABS: HCT 17.5 % (39.6-50.0); HGB 5.6 g/dL (13.0-17.0)
[2024-09-10 14:42] LABS: ALT 14 U/L (4-49); AST 24 U/L (17-59); African American GFR (CKD) 61 (>60 ml/min/1.73 sqM); Albumin 2.9 g/dL (3.5-5.0); Alkaline Phosphatase 64 U/L (38-126); Anion Gap 1 mmol/L; Blood Urea Nitrogen 24 mg/dL (9-20); Calcium 8.4 mg/dL (8.4-10.2); Carbon Dioxide 34 mmol/L (22-30); Chloride 103 mmol/L (98-107); Glucose 164 mg/dL (74-99); Non-African American GFR(CKD) 53 (>60 ml/min/1.73 sqM); Potassium 4.8 mmol/L (3.5-5.1); Sodium 138 mmol/L (137-145); Total Bilirubin 0.4 mg/dL (0.2-1.3); Total Protein 5.6 g/dL (6.3-8.2)
[2024-09-10 14:51] LABS: NT-Pro-B-Type Natriuretic Pept 863 pg/mL
--- NOTE | 2024-09-10 15:22 | XR ---
EXAMINATION TYPE: XR chest 2V DATE OF EXAM: 09/10/2024 CLINICAL INDICATION: Male, 84 years old with history of difficulty breathing, TECHNIQUE: Frontal and lateral views of the chest are obtained. COMPARISON: Chest x-ray November 17, 2023 FINDINGS: There is no focal air space opacity, pleural effusion, or pneumothorax seen. The cardiac silhouette size is within normal limits. The osseous structures are intact. IMPRESSION: No acute cardiopulmonary process. [facility], , 09/10/2024 3:20 PM
--- NOTE | 2024-09-10 16:27 | CT ---
EXAMINATION TYPE: CT brain wo con DATE OF EXAM: 09/10/2024 4:15 PM COMPARISON: None. CLINICAL INDICATION: Male, 84 years old with history of left sided weakness, Left sided weakness TECHNIQUE: CT of the brain is performed utilizing 3 mm thick sections through the posterior fossa and 3 mm thick sections through the remaining calvarium. Study is performed within 24 hours of arrival to the hospital. Contrast used: mL of , (none if empty) CT DLP: 1182.4 mGycm, Automated exposure control for dose reduction was used. FINDINGS: No abnormal hyperdensity is present to suggest an acute intracranial hemorrhage. No mass lesion is evident. No acute infarcts are evident. Mild periventricular white matter hypodensity is present likely on the basis of chronic white matter ischemic changes. Ventricles and sulci are mildly prominent for the patient age. Paranasal sinuses within the [id number] are clear. Some fluid may be within the left mastoid air c ells. Correlate for left mastoiditis. Right mastoid air cells are clear. IMPRESSION: 1. No acute intracranial process. Follow up MRI can be performed as clinically indicated. 2. Periventricular white matter hypodensity compatible with chronic white matter ischemic change with mild atrophy. 3. Left mastoiditis may be present. [facility], , 09/10/2024 4:25 PM
--- NOTE | 2024-09-10 16:35 | CT ---
EXAMINATION TYPE: CT abdomen pelvis w con DATE OF EXAM: 09/10/2024 4:15 PM COMPARISON: None. CLINICAL INDICATION: Male, 84 years old with history of abd pain, vomiting, low hb, Abdominal pain an d nausea/vomiting TECHNIQUE: Axial images were obtained from above the diaphragm to the pubic rami in the axial plane a t 5 mm thick sections. Reconstructed images are reviewed on the computer in the coronal plane. CONTRAST: 80ml mL of Isovue 300. Study performed without Oral Contrast DLP: 925.5 mGycm, Automated exposure control for dose reduction was used. FINDINGS: Limited CT sections are obtained the lung bases. The lung bases are clear. CT ABDOMEN: Liver: Normal Spleen: Normal Pancreas: Normal Adrenal glands: The adrenal glands are normal. Gallbladder: Normal Kidneys: No masses are evident. No hydronephrosis is present. There is an 8.3 cm cyst on the plant maintenance mechanic ior superior pole left kidney. There appears to be a peripelvic cyst within the superior pole right k idney measuring 2.0 cm. There is a 9.5 cm cyst at the inferior pole right kidney. Additional medial inferior pole 4.5 cm cyst is present. There is a 2.4 cm inferior lateral left renal cyst and a small er 1.7 cm posterior inferior left renal cyst. A more intermediate signal cyst measuring 54 Hounsfield units measures 2.8 cm posterior inferior pole right kidney. Follow-up is recommended for this findin g. Delayed images were obtained through the kidneys, which remain unremarkable. Aorta: Vascular calcification is within the aorta. Stent is present within the aorta which terminate s above the bifurcation. Inferior vena cava: Normal. CT PELVIS: There is a periumbilical hernia with an opening of 1.5 cm containing mesenteric fat. No lo ops of bowel are involved. Multiple diverticuli within the sigmoid colon. No adjacent inflammatory ch anges to suggest acute diverticulitis. Some diverticular changes are within the descending colon bre on. Loops of bowel without oral contrast appear unremarkable. Appendix: Normal as visualized. Urinary bladder: Normal. Genitourinary structures: Prostate contains large calcification on the right with additional smaller calcifications present. Osseous structures: No suspicious lytic or sclerotic lesions. IMPRESSION: 1. 2.8 cm rounded density measuring 54 Hounsfield units from the inferior pole right kidney may be a complicated cyst or mass. Follow-up is recommended. Consider MRI for additional evaluation. 2. Multiple large more simple appearing cysts present bilaterally. 3. Periumbilical fat-containing hernia. [facility], , 09/10/2024 4:32 PM
[2024-09-10] MEDS ORDERED: NALOXONE 0.4 MG/ML 1 ML VIAL IV PRN (18:00)
[2024-09-10] MEDS: NICOTINE 21MG/24HR PATCH TRANSDERM STA (18:09)
[2024-09-10] MEDS: HALOPERIDOL LACTATE 5 MG/ML 1 ML VIAL IM STA (18:11)
[2024-09-10] MEDS: NICOTINE GUM (POLACRILEX) 2 MG GUM BUCCAL STA (18:11)
[2024-09-10] MEDS: HALOPERIDOL LACTATE 5 MG/ML 1 ML VIAL IVP STA (18:11)
[2024-09-10] MEDS ORDERED: DOCUSATE 100 MG CAP PO PRN (19:59)
[2024-09-10] MEDS ORDERED: ALBUTEROL NEBULIZED 2.5 MG/3 ML INHALATION PRN ×2 (19:59)
[2024-09-10 20:17] LABS: % Iron Saturation 78.79 (15.00-50.00)
[2024-09-10 20:19] LABS: Appearance,Urine Clear (Clear); Bilirubin,Urine Negative (Negative); Blood,Urine Negative (Negative); Color,Urine Colorless; Glucose,Urine (UA) Negative (Negative); Ketones,Urine Negative (Negative); Leukocyte Esterase,Urine Negative (Negative); Nitrite,Urine Negative (Negative); PH, Urine 5.5 (5.0-8.0); Protein,Urine Negative (Negative); Specific Gravity,Urine 1.019 (1.001-1.035); Urobilinogen,Urine <2.0 mg/dL (<2.0)
[2024-09-10] MEDS: ATORVASTATIN 80 MG TAB PO SCH (20:28)
[2024-09-10] MEDS: QUEtiapine 25 MG TAB PO PRN (20:28)
--- NOTE | 2024-09-10 20:47 | P.HPIM ---
History of Present Illness H&P Date: 09/10/24 History of present illness; Patient is a 84-year-old male with diabetes, coronary artery disease, A-fib and is on Eliquis who presents with weakness. He has a history of dementia and his niece was able to provide history. Apparently, he had some nausea and vomiting with abdominal pain last week which then resolved. 3 days ago, she has noted that the patient has continued to be weak and he stated that his left side seem to be weaker than his right. Currently denying shortness of breath. He wears 2.5 L at home at baseline. No recent medication changes. He is denying chest pain, abdominal pain, black or bloody stools. History of anemia with baseline ~12.5. He is denying fevers, chills, dysuria. Spoke with the ER physician, patient admission was accepted by internal medicine service for treatment. REVIEW OF SYSTEMS: As per HPI PHYSICAL EXAMINATION: Vitals reviewed GENERAL: Resting comfortably in bed. Obese. EYES: PERRL, no scleral injection or icterus. No vision loss. Pale conjunctiva HENT: Normocephalic, atraumatic, hearing grossly intact, moist mucous membranes NECK: No tracheal deviation, full range of motion. CARDIOVASCULAR: S1 and S2 present. No murmurs, rubs, or gallops. PULMONARY: Chest is clear to auscultation, no wheezing, rhonchi, or crackles. ABDOMEN: Soft, nontender, nondistended. No palpable organomegaly. MUSCULOSKELETAL: No apparent joint swelling and deformities. EXTREMITIES: No apparent cyanosis, clubbing. No pedal edema. NEUROLOGICAL: Alert and oriented x1 to person. Gross neurological examination with no apparent focal deficits. SKIN: No apparent rashes. ER FINDINGS: Labs significant for RBC 1.5, hemoglobin 5.6, hematocrit 17.5, MCV 110, MCH 35.2, PT 12.7, INR 1.2, bicarb 34, BUN 24, glucose 164, troponin negative, proBNP 863, stool occult blood negative EKG independently interpreted showed sinus rhythm with occasional supraventr icular premature complexes, heart rate of 66, QTc 431, no ST segment elevation or depression seen, no T-wave inversions seen. Chest x-ray done independently interpreted showed no acute cardiopulmonary process. CT head interpreted showed no acute intracranial process. Periventricular white matter hypodensity compatible with chronic white matter ischemic changes mild atrophy. Left mastoiditis possibly present. CT abdomen pelvis with findings of 2.8 cm rounded density measuring 54 Hounsfield units from the inferior right kidney may be complicated cyst or mass. Consider MRI for additional evaluation. Multiple large simple appearing cyst present bilaterally. Periumbilical fat-containing hernia. Assessment and Plan: # Severe macrocytic anemia, ddx leukemia vs sub/acute bleed #Generalized weakness No acute source of bleed, hemodynamically stable Type and screen ordered, plan 2 units RBC transfusion Ferritin, folate, haptoglobin, iron profile, LDH, vitamin B12, methylmalonic acid, reticulocyte count ordered Hold anticoagulation Monitor CBC Hematology consulted #Right renal mass CT abdomen pelvis with 2.8 cm rounded density by right inferior pole US kidney to further assess #Acute on chronic respiratory failure, likely secondary to anemia #COPD, not in acute exacerbation #Metabolic alkalosis Afebrile, chest x-ray unremarkable Continue O2 supplementation nasal cannula Continue home breathing treatment - Monitor BMP Plan as above #Delirium #Dementia Frequent reorientation Begin Seroquel 12.5 mg nightly Chronic Medical Conditions: CAD Diabetes mellitus A-fib History of DVT History of PE Hyperlipidemia Hypertension Prostate disorder Resume home medication DVT ppx: Hold anticoagulation due to anemia Code status: Full code F: P.o. E: Replete as needed N: Heart healthy diet A: Ambulatory Anticipated discharge place: Pending clinical course Anticipated discharge time: Pending clinical course Dictation was produced using [employer] dictation software. Please excuse any grammatical, word or spelling errors. The patient was seen and examined by me independently on 12/11/24. The patient was discussed with the resident and I agree with the documentation as above C Past Medical History Past Medical History: Coronary Artery Disease (CAD), Chest Pain / Angina, COPD, Dementia, Diabetes Mellitus, Deep Vein Thrombosis (DVT), Eye Disorder, GERD/Reflux, Hyperlipidemia, Hypertension, Memory Impairment, Pneumonia, Prostate Disorder, Pulmonary Embolus (PE) Additional Past Medical History / Comment(s): Kidney stones, Eye lens issue History of Any Multi-Drug Resistant Organisms: None Reported Past Surgical History: Heart Catheterization With Stent Additional Past Surgical History / Comment(s): Stents in legs, Lens replacememt, Kidney stone removal sx Past Anesthesia/Blood Transfusion Reactions: No Reported Reaction Date of Last Stent Placement:: 05/05/18 Past Psychological History: No Psychological Hx Reported Smoking Status: Current every day smoker Past Alcohol Use History: Occasional Past Drug Use History: None Reported - Past Family History Mother Family Medical History: No Reported History Father Family Medical History: No Reported History Medications and Allergies Home Medications Medication Instructions Recorded Confirmed Type Ferrous Sulfate [Iron (65 MG 325 mg PO Q2D 11/17/23 09/10/24 History Elemental)] Melatonin 3 mg PO HS PRN 11/17/23 09/10/24 History Nitroglycerin Sl Tabs [Nitrostat] 0.4 mg SUBLINGUAL Q5M PRN 11/17/23 09/10/24 History Albuterol Sulfate [Albuterol 2 puff INHALATION RT-QID PRN 11/18/23 09/10/24 History Sulfate Hfa] Atorvastatin Calcium [Lipitor] 80 mg PO HS 11/18/23 09/10/24 History Docusate [Colace] 100 mg PO BID PRN 11/18/23 09/10/24 History Metoprolol Succinate [Toprol XL] 200 mg PO DAILY 11/18/23 09/10/24 History Tiotropium 2.5 Mcg/Puff [Spiriva 2 puff INHALATION RT-DAILY 11/18/23 09/10/24 History Respimat 2.5 Mcg] lisinopriL 40 mg PO DAILY 11/18/23 09/10/24 History Diltiazem Cd [Cardizem CD] 120 mg PO DAILY #60 cap 11/21/23 09/10/24 Rx Doxazosin [Cardura] 4 mg PO DAILY 03/03/24 09/10/24 History Furosemide [Lasix] 20 mg PO DAILY 03/03/24 09/10/24 History Albuterol Nebulized [Ventolin 2.5 mg INHALATION RT-QID PRN 09/10/24 09/10/24 History Nebulized] Glucerna Shake 1 can PO BID PRN 09/10/24 09/10/24 History Rivaroxaban [Xarelto] 20 mg PO DAILY 09/10/24 09/10/24 History Allergies Allergy/AdvReac Type Severity Reaction Status Date / Time Penicillins Allergy Swelling Verified 09/10/24 14:34 alprazolam [From Xanax] AdvReac Hallucinati Verified 09/10/24 14:34 ons lorazepam AdvReac Hallucinati Verified 09/10/24 14:34 ons meperidine [From Demerol] AdvReac Hallucinati Verified 09/10/24 14:34 ons Physical Exam Vitals: Vital Signs Temp Pulse Resp BP Pulse Ox 09/10/24 18:40 97.9 F 88 16 131/106 95 09/10/24 16:50 73 18 117/66 98 09/10/24 15:29 18 114/53 96 09/10/24 14:03 73 18 118/46 94 L 09/10/24 12:26 98.3 F 68 22 91/58 94 L Intake and Output 09/10/24 09/10/24 09/10/24 06:59 14:59 22:59 Intake Total 0 Balance 0 Intake: Blood Product 0 Rc As-1 Unit 0 [id number] Other: Weight 76.204 kg Results CBC & Chem 7: 09/10/24 14:10 09/10/24 14:10 Labs: Abnormal Lab Results - Last 24 Hours (Table) 09/10/24 09/10/24 09/10/24 Range/Units 14:10 14:10 14:10 RBC 1.59 L (4.40-5.60) 10*6/uL Hgb 5.6 L* (13.0-17.0) g/dL Hct 17.5 L* (39.6-50.0) % MCV 110.1 H (80.0-97.0) fL MCH 35.2 H (27.0-32.0) pg PT 12.7 H (10.0-12.5) sec INR 1.2 H (<1.2) Carbon Dioxide 34 H (22-30) mmol/L BUN 24 H (9-20) mg/dL Glucose 164 H (74-99) mg/dL Total Protein 5.6 L (6.3-8.2) g/dL Albumin 2.9 L (3.5-5.0) g/dL Crossmatch 09/10/24 Range/Units 15:20 RBC (4.40-5.60) 10*6/uL Hgb (13.0-17.0) g/dL Hct (39.6-50.0) % MCV (80.0-97.0) fL MCH (27.0-32.0) pg PT (10.0-12.5) sec INR (<1.2) Carbon Dioxide (22-30) mmol/L BUN (9-20) mg/dL Glucose (74-99) mg/dL Total Protein (6.3-8.2) g/dL Albumin (3.5-5.0) g/dL Crossmatch See Detail
[2024-09-10] MEDS ORDERED: DEXTROSE 50% SYRINGE 50 ML IVP PRN ×2 (21:29)
--- NOTE | 2024-09-10 22:06 | US ---
EXAMINATION TYPE: US kidneys/renal and bladder DATE OF EXAM: 09/10/2024 Exam done portable COMPARISON: CT 2024, US 2018 CLINICAL INDICATION: Male, 84 years old with history of R. renal mass; TECHNIQUE: Grayscale imaging of the bilateral kidneys and urinary bladder: FINDINGS: EXAM MEASUREMENTS: Right Kidney: 11.6 x 5.4 x 4.6 cm Left Kidney: n/a Difficult and limited study due to disoriented uncooperative patient - moving during entire exam Right Kidney: Simple appearing anechoic cystic areas with largest measuring 10.6 x 6.5 x 9.1cm inferi or pole. Indeterminant hypoechoic lesion in the inferior pole measuring 2.4 x 2.9 x 2.7cm . Left Kidney: Left kidney not well visualized due to technical factors described above. Bladder: wnl IMPRESSION: 1. Indeterminate hypoechoic lesion in the inferior pole the right kidney measuring 2.9 cm. Recommend outpatient MRI with IV contrast for further evaluation. 2. Multiple anechoic simple appearing right renal cysts measuring up to 10.6 cm. Left kidney not wel l visualized due to technical factors described above. [facility], , 09/10/2024 10:04 PM
[2024-09-11 06:22] LABS: Glucose,Whole Blood 152 mg/dL (70-110)
[2024-09-11] MEDS: INSULIN LISPRO (HumaLOG) 100 UNIT/ML 10 mL VL SQ SCH (06:32)
[2024-09-11 07:04] LABS: Basophils # (A) 0.02 10*3/uL (0.00-0.10); Basophils % (A) 0.4 %; Eosinophils # (A) 0.09 10*3/uL (0.04-0.35); Eosinophils % (A) 1.9 %; HCT 22.2 % (39.6-50.0); Lymphocytes # (A) 1.08 10*3/uL (0.90-5.00); Lymphocytes % (A) 22.4 %; MCH 32.7 pg (27.0-32.0); MCHC 32.4 g/dL (32.0-37.0); Mean Platelet Volume 10.6 fL (9.5-12.2); Monocytes # (A) 0.49 10*3/uL (0.20-1.00); Monocytes % (A) 10.2 %; Neutrophils # (A) 3.05 10*3/uL (1.80-7.70); Neutrophils % (A) 63.2 %; Platelet Count 146 10*3/uL (140-440); WBC 4.82 10*3/uL (4.50-10.00)
[2024-09-11 07:05] LABS: HGB 7.2 g/dL (13.0-17.0); MCV 100.9 fL (80.0-97.0)
[2024-09-11 07:39] LABS: African American GFR (CKD) 67 (>60 ml/min/1.73 sqM); Anion Gap 1 mmol/L; Blood Urea Nitrogen 23 mg/dL (9-20); Calcium 8.3 mg/dL (8.4-10.2); Carbon Dioxide 35 mmol/L (22-30); Chloride 105 mmol/L (98-107); Glucose 120 mg/dL (74-99); Non-African American GFR(CKD) 58 (>60 ml/min/1.73 sqM); Potassium 4.5 mmol/L (3.5-5.1); Sodium 141 mmol/L (137-145)
[2024-09-11] MEDS: TIOTROPIUM 2.5 MCG INHALER INHALATION SCH (08:44)
[2024-09-11] MEDS: DOXAZOSIN 4 MG TAB PO SCH (09:35)
[2024-09-11] MEDS: DILTIAZEM CD 120 MG CAP.ER.24H PO SCH (09:35)
[2024-09-11] MEDS: FERROUS SULFATE 325 MG TAB PO SCH (09:35)
[2024-09-11] MEDS: METOPROLOL SUCCINATE (ER) 100 MG TAB.ER.24H PO SCH (09:35)
[2024-09-11] MEDS: lisinopriL 20 MG TAB PO SCH (09:35)
--- NOTE | 2024-09-11 11:12 | P.PN ---
Subjective Progress Note Date: 09/11/24 I have seen and evaluated the patient today. Discussed with the resident and agree with the residents finding and plan as documented in the resident's note. Changes highlighted in blue font. Hospital Course: Patient is a 84-year-old male with diabetes, coronary artery disease, A-fib and is on Eliquis who presents with weakness. He has a history of dementia and his niece was able to provide history. Apparently, he had some nausea and vomiting with abdominal pain last week which then resolved. 3 days ago, she has noted that the patient has continued to be weak and he stated that his left side seem to be weaker than his right. Currently denying shortness of breath. He wears 2.5 L at home at baseline. No recent medication changes. He is denying chest pain, abdominal pain, black or bloody stools. History of anemia with baseline ~12.5. He is denying fevers, chills, dysuria. ER FINDINGS: Labs significant for RBC 1.5, hemoglobin 5.6, hematocrit 17.5, MCV 110, MCH 35.2, PT 12.7, INR 1.2, bicarb 34, BUN 24, glucose 164, troponin negative, proBNP 863, stool occult blood negative EKG independently interpreted showed sinus rhythm with occasional suprav entricular premature complexes, heart rate of 66, QTc 431, no ST segment elevation or depression seen, no T-wave inversions seen. Chest x-ray done independently interpreted showed no acute cardiopulmonary process. CT head interpreted showed no acute intracranial process. Periventricular white matter hypodensity compatible with chronic white matter ischemic changes mild atrophy. Left mastoiditis possibly present. CT abdomen pelvis with findings of 2.8 cm rounded density measuring 54 Hounsfield units from the inferior right kidney may be complicated cyst or mass. Consider MRI for additional evaluation. Multiple large simple appearing cyst present bilaterally. Periumbilical fat-containing hernia. Subjective: Patient seen and examined at bedside. No acute events overnight. Pertinent positives and negatives as discussed above, a complete review of systems was performed and all other systems are negative. Vitals: Signs Reviewed Physical Exam: General: nontoxic, no distress, appears at stated age, on 3 L nasal cannula Derm: warm, dry, intact Head: atraumatic, normocephalic, symmetric Eyes: EOMI, anicteric sclera Mouth: no lip lesion, mucus membranes moist Cardiovascular: S1 S2 reg, no murmur, rubs, or gallops Lungs: CTA bilateral, no rhonchi, no rales, no accessory muscle use Abdominal: soft, non-tender to palpataion, no appreciable organomegaly Extremities: no gross muscle atrophy, no edema, no contractures Neuro: Alert, Oriented, CNII-XII grossly intac Psych: well appearing, appropriate affect Data Received Today: Pertinent Labs: Hemoglobin improved s/p 2 units PRBC from 5.6 => 7.2-> 6.4, MCV 100.9 B12 within normal limit at 503 BMP displaying metabolic alkalosis, the rest is unremarkable Iron studies: Iron 234, TIBC 337, percent saturation 78.79, transferrin 212, ferritin 23.2 Haptoglobin WNL at 138, LDH 170, retic count pending Ammonia < 9 Imaging: Renal ultrasound: Indeterminate hypoechoic lesion in the inferior pole of right kidney measuring 2.9 cm, multiple anechoic simple appearing right renal cyst measuring up to 10.6 cm, left kidney not well-visualized MRI brain: Pending Assessment and Plan: Patient is a 84-year-old male with diabetes, coronary artery disease, A-fib and is on Eliquis who presents with weakness. #Severe macrocytic anemia, ddx leukemia vs sub/acute bleed #Generalized weakness CT brain reviewed as above S/p 2 units PRBC, Hgb improved from 5.6 => 7.2, monitor CBC, transfuse if Hgb < 7.0> 6.4 Transfused 2 units of blood on 09/11, recheck CBC ordered for this evening Hematology oncology ordered Free kappa and lambda, serum immunofixation, IgA, IgG and IgM, protein electrophoresis, methylmalonic acid-pending No acute source of bleed, stool occult blood negative, hemodynamically stable Iron profile, haptoglobin, LDH reviewed as above Methylmalonic acid, reticulocyte count pending, obtain blood smear Hold anticoagulation, blood thinners clinic PT/OT consult CBC q6hr Hematology consulted, pending recommendations Neurology consulted, MRI brain ordered #Right renal mass CT abdomen pelvis with 2.8 cm rounded density by right inferior pole Renal ultrasound reviewed as above, recommend outpatient follow-up #Acute on chronic respiratory failure, likely secondary to anemia #COPD, not in acute exacerbation #Metabolic alkalosis Afebrile, chest x-ray unremarkable Continue O2 supplementation nasal cannula Continue Spiriva inhaler On 3 L nasal cannula Monitor BMP #Type II diabetes mellitus Insulin SQ sliding scale Accu-Cheks ACHS Monitor for hypoglycemia #Delirium #Dementia Frequent reorientation Begin Seroquel 12.5 mg nightly Chronic Medical Conditions: CAD: Lisinopril 40 mg PO QD, metoprolol 200 mg PO QD, Lipitor 80 mg PO HS A-fib: Cardizem 120 mg PO QD, hold Xarelto History of DVT: Xarelto as above History of PE: Xarelto as above Hypertension: Lisinopril 40 mg PO QD, metoprolol 200 mg PO QD Prostate disorder: Doxazosin 4 mg PO QD DVT ppx: Hold anticoagulation due to anemia, SCDs Code status: Full code F: PO E: Replete as needed N: Heart healthy diet A: Ambulatory with PT/OT consulted Anticipated discharge place: Pending clinical course Anticipated discharge time: Pending clinical course Gerard Chamberlain MD PGY-1 IM Dictation was produced using [employer] dictation software. please excuse any grammatical, word or spelling errors. Objective - Vital Signs Vital signs: Vital Signs Temp 97.7 F 09/11/24 04:50 Pulse 89 09/11/24 04:50 Resp 20 09/11/24 04:50 BP 152/69 09/11/24 04:50 Pulse Ox 98 09/11/24 04:50 FiO2 Intake & Output 09/10/24 09/11/24 09/11/24 18:59 06:59 18:59 Intake Total 0 620 Output Total 350 400 Balance 0 270 -400 Weight 76.204 kg 74 kg Intake: Blood Product 0 620 Rc As-1 Unit 310 [id number] Rc As-1 Unit 0 [id number] Rc As-1 Unit 0 310 [id number] Output: Urine 350 400 Other: Voiding Method Urinal # Voids 1 # Bowel Movements 1 - Labs CBC & Chem 7: 09/11/24 12:02 09/11/24 06:23 Labs: Abnormal Lab Results - Last 24 Hours (Table) 09/10/24 09/10/24 09/10/24 Range/Units 14:10 14:10 14:10 RBC 1.59 L (4.40-5.60) 10*6/uL Hgb 5.6 L* (13.0-17.0) g/dL Hct 17.5 L* (39.6-50.0) % MCV 110.1 H (80.0-97.0) fL MCH 35.2 H (27.0-32.0) pg Immature Gran # (0.00-0.04) 10*3/uL PT 12.7 H (10.0-12.5) sec INR 1.2 H (<1.2) Carbon Dioxide 34 H (22-30) mmol/L BUN 24 H (9-20) mg/dL Glucose 164 H (74-99) mg/dL POC Glucose (mg/dL) (70-110) mg/dL Iron (65-175) UG/DL % Saturation (15.00-50.00) Total Protein 5.6 L (6.3-8.2) g/dL Albumin 2.9 L (3.5-5.0) g/dL Crossmatch 09/10/24 09/10/24 09/11/24 Range/Units 14:10 15:20 06:21 RBC (4.40-5.60) 10*6/uL Hgb (13.0-17.0) g/dL Hct (39.6-50.0) % MCV (80.0-97.0) fL MCH (27.0-32.0) pg Immature Gran # (0.00-0.04) 10*3/uL PT (10.0-12.5) sec INR (<1.2) Carbon Dioxide (22-30) mmol/L BUN (9-20) mg/dL Glucose (74-99) mg/dL POC Glucose (mg/dL) 152 H (70-110) mg/dL Iron 234 H (65-175) UG/DL % Saturation 78.79 H (15.00-50.00) Total Protein (6.3-8.2) g/dL Albumin (3.5-5.0) g/dL Crossmatch See Detail 09/11/24 Range/Units 06:33 RBC 2.20 L (4.40-5.60) 10*6/uL Hgb 7.2 L D (13.0-17.0) g/dL Hct 22.2 L (39.6-50.0) % MCV 100.9 H D (80.0-97.0) fL MCH 32.7 H (27.0-32.0) pg Immature Gran # 0.09 H (0.00-0.04) 10*3/uL PT (10.0-12.5) sec INR (<1.2) Carbon Dioxide (22-30) mmol/L BUN (9-20) mg/dL Glucose (74-99) mg/dL POC Glucose (mg/dL) (70-110) mg/dL Iron (65-175) UG/DL % Saturation (15.00-50.00) Total Protein (6.3-8.2) g/dL Albumin (3.5-5.0) g/dL Crossmatch
[2024-09-11 12:04] LABS: Glucose,Whole Blood 251 mg/dL (70-110)
[2024-09-11 12:12] LABS: Eosinophils # (A) 0.07 10*3/uL (0.04-0.35); Eosinophils % (A) 1.5 %; HCT 20.4 % (39.6-50.0); Lymphocytes # (A) 0.93 10*3/uL (0.90-5.00); Lymphocytes % (A) 20.2 %; MCH 32.2 pg (27.0-32.0); MCHC 31.4 g/dL (32.0-37.0); Mean Platelet Volume 9.8 fL (9.5-12.2); Monocytes # (A) 0.52 10*3/uL (0.20-1.00); Monocytes % (A) 11.3 %; Neutrophils # (A) 3.01 10*3/uL (1.80-7.70); Neutrophils % (A) 65.5 %; Platelet Count 147 10*3/uL (140-440); RBC 1.99 10*6/uL (4.40-5.60)
[2024-09-11 12:24] LABS: HGB 6.4 g/dL (13.0-17.0)
[2024-09-11 12:25] LABS: MCV 102.5 fL (80.0-97.0); RDW 25.3 % (11.5-14.5)
--- NOTE | 2024-09-11 14:41 | P.CNNES ---
History of Present Illness Consult date: 09/11/24 Reason for Consult: Left-sided weakness History of Present Illness: The patient is an 84-year-old male who is seen in neurologic consultation on 12/12/2024, in collaboration with Lima Lai, via teleneurology. History is obtained from review of the chart as well as from the patient's niece who was present via telephone, at the time of the evaluation. According to the patient's niece, the patient has been feeling very weak and "unwell" for few days. The patient reports that his left side feels weaker than his right side. The patient reportedly has a history of dementia. He also has a history of atrial fibrillation and is taking Xarelto. There have been been no reported missed doses of Xarelto. In the emergency department, CT scan of the brain was performed. There was no reported evidence of acute hemorrhage or infarct. Laboratory evaluation in the emergency department revealed a markedly low hemoglobin of 5.6. White blood cell count 7.59. Stool for occult blood was negative. CT scan of the abdomen and pelvis revealed no evidence of bleeding. Repeat hemoglobin this morning following 2 units of blood, remains low at 7.2. The patient reports feeling somewhat better today he reports that he is unable to move his left side as well as his right. He is reportedly confused. The patient agrees that he is confused. He states that "I think I broke myself" when asked how he got to the hospital. The patient does not recall the ambulance arriving at his home. He does not recall being in the emergency department. Review of Systems Unable to accurately obtain secondary to mental status of patient Past Medical History Past Medical History: Blood Disorder, Coronary Artery Disease (CAD), Chest Pain / Angina, COPD, Dementia, Diabetes Mellitus, Deep Vein Thrombosis (DVT), Eye Disorder, GERD/Reflux, Hearing Disorder / Deafness, Hyperlipidemia, Hype rtension, Memory Impairment, Pneumonia, Prostate Disorder, Pulmonary Embolus (PE) Additional Past Medical History / Comment(s): Kidney stones, Eye lens issue, anemia, hard of hearing History of Any Multi-Drug Resistant Organisms: None Reported Past Surgical History: Heart Catheterization With Stent Additional Past Surgical History / Comment(s): Stents in legs, Lens replacememt, Kidney stone removal sx Past Anesthesia/Blood Transfusion Reactions: No Reported Reaction Date of Last Stent Placement:: 05/05/18 Past Psychological History: No Psychological Hx Reported Smoking Status: Former smoker Past Alcohol Use History: None Reported Past Drug Use History: None Reported - Past Family History Mother Family Medical History: No Reported History Father Family Medical History: No Reported History Medications and Allergies Home Medications Medication Instructions Recorded Confirmed Type Ferrous Sulfate [Iron (65 MG 325 mg PO Q2D 11/17/23 09/10/24 History Elemental)] Melatonin 3 mg PO HS PRN 11/17/23 09/10/24 History Nitroglycerin Sl Tabs [Nitrostat] 0.4 mg SUBLINGUAL Q5M PRN 11/17/23 09/10/24 History Albuterol Sulfate [Albuterol 2 puff INHALATION RT-QID PRN 11/18/23 09/10/24 History Sulfate Hfa] Atorvastatin Calcium [Lipitor] 80 mg PO HS 11/18/23 09/10/24 History Docusate [Colace] 100 mg PO BID PRN 11/18/23 09/10/24 History Metoprolol Succinate [Toprol XL] 200 mg PO DAILY 11/18/23 09/10/24 History Tiotropium 2.5 Mcg/Puff [Spiriva 2 puff INHALATION RT-DAILY 11/18/23 09/10/24 History Respimat 2.5 Mcg] lisinopriL 40 mg PO DAILY 11/18/23 09/10/24 History Diltiazem Cd [Cardizem CD] 120 mg PO DAILY #60 cap 11/21/23 09/10/24 Rx Doxazosin [Cardura] 4 mg PO DAILY 03/03/24 09/10/24 History Furosemide [Lasix] 20 mg PO DAILY 03/03/24 09/10/24 History Albuterol Nebulized [Ventolin 2.5 mg INHALATION RT-QID PRN 09/10/24 09/10/24 History Nebulized] Glucerna Shake 1 can PO BID PRN 09/10/24 09/10/24 History Rivaroxaban [Xarelto] 20 mg PO DAILY 09/10/24 09/10/24 History Allergies Allergy/AdvReac Type Severity Reaction Status Date / Time Penicillins Allergy Swelling Verified 09/10/24 14:34 alprazolam [From Xanax] AdvReac Hallucinati Verified 09/10/24 14:34 ons lorazepam AdvReac Hallucinati Verified 09/10/24 14:34 ons meperidine [From Demerol] AdvReac Hallucinati Verified 09/10/24 14:34 ons Physical Examination - Vital Signs Vital Signs: Vital Signs Temp Pulse Pulse Pulse Resp BP BP 09/11/24 09:30 99 F 78 16 162/75 09/11/24 08:45 09/11/24 04:50 97.7 F 89 20 152/69 09/10/24 23:57 97.2 F L 64 14 132/61 09/10/24 22:27 98.0 F 72 18 138/72 09/10/24 22:07 97.5 F L 74 16 147/77 09/10/24 21:57 97.5 F L 60 18 120/72 09/10/24 20:59 97.0 F L 72 18 158/92 09/10/24 20:32 97.0 F L 70 18 148/84 09/10/24 20:20 97.0 F L 70 18 148/84 09/10/24 19:00 98.0 F 62 16 162/72 09/10/24 18:40 97.9 F 88 16 131/106 09/10/24 16:50 73 18 117/66 09/10/24 15:29 18 114/53 09/10/24 14:03 73 18 118/46 09/10/24 12:26 98.3 F 68 22 91/58 Pulse Ox 09/11/24 09:30 98 09/11/24 08:45 95 09/11/24 04:50 98 09/10/24 23:57 100 09/10/24 22:27 95 09/10/24 22:07 97 09/10/24 21:57 97 09/10/24 20:59 94 L 09/10/24 20:32 92 L 09/10/24 20:20 92 L 09/10/24 19:00 96 09/10/24 18:40 95 09/10/24 16:50 98 09/10/24 15:29 96 09/10/24 14:03 94 L 09/10/24 12:26 94 L Intake and Output 09/10/24 09/11/24 09/11/24 22:59 06:59 14:59 Intake Total 310 310 Output Total 350 400 Balance 310 -40 -400 Intake: Blood Product 310 310 As-1 Unit 0 310 [id number] Rc As-1 Unit 0 [id number] Rc As-1 Unit 310 [id number] Output: Urine 350 400 Other: Voiding Method Urinal Urinal Urinal # Voids 1 # Bowel Movements 1 Weight 76.204 kg 74 kg General: Patient is reclining in the bed. He is well-nourished, well-developed and in no acute distress. HEENT: Head is atraumatic, normocephalic. Fundus not visualized. There is no scleral icterus. Mucous membranes are moist. Neck: Supple without carotid bruits Heart: Regular rate rhythm Lungs: Clear to auscultation Extremities: Without edema Neurological examination Mental status: Patient is awake and alert. He is able to state his name, date of and age. There is perseveration of speech. The patient is unable to report the current year or the current president. Speech is clear. There is no dysarthria or aphasia. Cranial nerves: Pupils are equal at 1 mm and reactive to light. Visual alas are full to confrontation. Extraocular movements are intact. There is no nystagmus. Facial sensation is intact. There is facial drooping. Hearing is diminished. Uvula and palate are midline. Shoulder shrug is symmetric. Tongue protrudes to the right of midline. Motor: Strength is 5/5 throughout. Coordination: [id number], rapid alternating movements are intact. There is a left pronator drift. [id number] testing is not assessed. There is asterixis of the bilateral upper extremities. Sensation: There is decreased sensation to light touch in the left upper and lower extremities. There is no extinction with double simultaneous stimulation. Deep tendon reflexes: 2+/4+ throughout. Plantar responses are flexor bilaterally. Gait: Not assessed Results CT scan of the brain images have been personally reviewed. I agree with the radiology report. - Laboratory Findings CBC and BMP: 09/11/24 12:02 09/11/24 06:23 Abnormal Lab Findings: Abnormal Labs 09/10/24 09/10/24 09/10/24 14:10 14:10 14:10 RBC 1.59 L Hgb 5.6 L* Hct 17.5 L* MCV 110.1 H MCH 35.2 H Immature Gran # PT 12.7 H INR 1.2 H Carbon Dioxide 34 H BUN 24 H Glucose 164 H POC Glucose (mg/dL) Calcium Iron % Saturation Total Protein 5.6 L Albumin 2.9 L Crossmatch 09/10/24 09/10/24 09/11/24 14:10 15:20 06:21 RBC Hgb Hct MCV MCH Immature Gran # PT INR Carbon Dioxide BUN Glucose POC Glucose (mg/dL) 152 H Calcium Iron 234 H % Saturation 78.79 H Total Protein Albumin Crossmatch See Detail 09/11/24 09/11/24 06:23 06:33 RBC 2.20 L Hgb 7.2 L D Hct 22.2 L MCV 100.9 H D MCH 32.7 H Immature Gran # 0.09 H PT INR Carbon Dioxide 35 H BUN 23 H Glucose 120 H POC Glucose (mg/dL) Calcium 8.3 L Iron % Saturation Total Protein Albumin Crossmatch Assessment and Plan Assessment: 1. The patient is an 84-year-old male with reported right greater than left s ided weakness. There has been also increased confusion. CT scan of the brain performed in the emergency department revealed no evidence of acute hemorrhage or infarct. Hemoglobin is markedly low and contribute to confusion and weakness. Because of the patient's history of atrial fibrillation on Xarelto as well as history of DVT and PE, the possibility of stroke must be investigated 2. History of dementia 3. Severe anemia 4. History of atrial fibrillation 5. History of DVT 6. History of hypertension 7. History of hyperlipidemia 8. History of diabetes mellitus Plan: 1. I agree with holding Xarelto at this time 2. MRI of the brain has been ordered 3. Stroke order set should be placed 4. Speech therapy consultation regarding swallow, as the patient seems to be having some difficulty 5. Primary team to investigate etiology of anemia Time with Patient: Greater than 30 (60 minutes were spent caring for this patient today including, obtaining history, examining the patient, reviewing imaging, chart documentation, labs, placing orders and creating this note)
[2024-09-11 15:02] LABS: Reticulocyte % 7.8 % (0.10-1.80)
[2024-09-11 16:49] LABS: Glucose,Whole Blood 142 mg/dL (70-110)
[2024-09-11] MEDS: NICOTINE 21MG/24HR PATCH TRANSDERM SCH (19:58)
[2024-09-11 20:01] LABS: Glucose,Whole Blood 159 mg/dL (70-110)
--- NOTE | 2024-09-11 20:39 | P.CONS ---
History of Present Illness - Reason for Consult Consult date: 09/11/24 anemia Requesting physician: Mabel Berg - Chief Complaint weakness - History of Present Illness Patient is a 84 year old male who presented for weakness. Consult placed for anemia. HPI is quite limited due to confusion and dementia, and no family at bedside. Upon review of ER note, patient has a history of dementia and per family patient had nausea and vomiting with abdominal pain last week which then resolved. Niece stated patient has increased weakness on his left side. Symptoms have been going on for [address] brain without contrast was negative f or acute intracranial processes. Neurology consulted, brain MRI ordered. Patient denies history of anemia. Denies acute bleeding and melena. He is anticoagulated with Eliquis for a-fib, which has been held. Upon review of EMR, patient has had mild anemia in the 11-12 range since 2019, and is on oral iron. Last hemoglobin prior to admission was on 03/04/2024 which was 12.7. Patient's hemoglobin on admit was noted at 5.6, MCV 110.1.. Patient has been transfused 3 units PRBCs with repeat hemoglobin 7.2. WBC 5.0, platelets 176,000. Nutritional studies showed iron saturation 78.7%, ferritin 23.2, vitamin B-12 503. Folate pending. Hemolysis workup negative. Stool occult negative. Creatinine 1.24, GFR 53. BUN 24. Review of Systems 10 point ROS is negative except as stated in the HPI Past Medical History Past Medical History: Blood Disorder, Coronary Artery Disease (CAD), Chest Pain / Angina, COPD, Dementia, Diabetes Mellitus, Deep Vein Thrombosis (DVT), Eye Disorder, GERD/Reflux, Hearing Disorder / Deafness, Hyperlipidemia, Hypertension, Memory Impairment, Pneumonia, Prostate Disorder, Pulmonary Embolus (PE) Additional Past Medical History / Comment(s): Kidney stones, Eye lens issue, anemia, hard of hearing History of Any Multi-Drug Resistant Organisms: None Reported Past Surgical History: Heart Catheterization With Stent Additional Past Surgical History / Comment(s): Stents in legs, Lens replacememt, Kidney stone removal sx Past Anesthesia/Blood Transfusion Reactions: No Reported Reaction Date of Last Stent Placement:: 05/05/18 Past Psychological History: No Psychological Hx Reported Smoking Status: Former smoker Past Alcohol Use History: None Reported Past Drug Use History: None Reported - Past Family History Mother Family Medical History: No Reported History Father Family Medical History: No Reported History Medications and Allergies Home Medications Medication Instructions Recorded Confirmed Type Ferrous Sulfate [Iron (65 MG 325 mg PO Q2D 11/17/23 09/10/24 History Elemental)] Melatonin 3 mg PO HS PRN 11/17/23 09/10/24 History Nitroglycerin Sl Tabs [Nitrostat] 0.4 mg SUBLINGUAL Q5M PRN 11/17/23 09/10/24 History Albuterol Sulfate [Albuterol 2 puff INHALATION RT-QID PRN 11/18/23 09/10/24 History Sulfate Hfa] Atorvastatin Calcium [Lipitor] 80 mg PO HS 11/18/23 09/10/24 History Docusate [Colace] 100 mg PO BID PRN 11/18/23 09/10/24 History Metoprolol Succinate [Toprol XL] 200 mg PO DAILY 11/18/23 09/10/24 History Tiotropium 2.5 Mcg/Puff [Spiriva 2 puff INHALATION RT-DAILY 11/18/23 09/10/24 History Respimat 2.5 Mcg] lisinopriL 40 mg PO DAILY 11/18/23 09/10/24 History Diltiazem Cd [Cardizem CD] 120 mg PO DAILY #60 cap 11/21/23 09/10/24 Rx Doxazosin [Cardura] 4 mg PO DAILY 03/03/24 09/10/24 History Furosemide [Lasix] 20 mg PO DAILY 03/03/24 09/10/24 History Albuterol Nebulized [Ventolin 2.5 mg INHALATION RT-QID PRN 09/10/24 09/10/24 History Nebulized] Glucerna Shake 1 can PO BID PRN 09/10/24 09/10/24 History Rivaroxaban [Xarelto] 20 mg PO DAILY 09/10/24 09/10/24 History Allergies Allergy/AdvReac Type Severity Reaction Status Date / Time Penicillins Allergy Swelling Verified 09/10/24 14:34 alprazolam [From Xanax] AdvReac Hallucinati Verified 09/10/24 14:34 ons lorazepam AdvReac Hallucinati Verified 09/10/24 14:34 ons meperidine [From Demerol] AdvReac Hallucinati Verified 09/10/24 14:34 ons Physical Exam Vitals: Vital Signs Temp Pulse Pulse Pulse Resp BP BP 09/11/24 09:30 99 F 78 16 162/75 09/11/24 08:45 09/11/24 04:50 97.7 F 89 20 152/69 09/10/24 23:57 97.2 F L 64 14 132/61 09/10/24 22:27 98.0 F 72 18 138/72 09/10/24 22:07 97.5 F L 74 16 147/77 09/10/24 21:57 97.5 F L 60 18 120/72 09/10/24 20:59 97.0 F L 72 18 158/92 09/10/24 20:32 97.0 F L 70 18 148/84 09/10/24 20:20 97.0 F L 70 18 148/84 09/10/24 19:00 98.0 F 62 16 162/72 09/10/24 18:40 97.9 F 88 16 131/106 09/10/24 16:50 73 18 117/66 09/10/24 15:29 18 114/53 09/10/24 14:03 73 18 118/46 09/10/24 12:26 98.3 F 68 22 91/58 Pulse Ox 09/11/24 09:30 98 09/11/24 08:45 95 09/11/24 04:50 98 09/10/24 23:57 100 09/10/24 22:27 95 09/10/24 22:07 97 09/10/24 21:57 97 09/10/24 20:59 94 L 09/10/24 20:32 92 L 09/10/24 20:20 92 L 09/10/24 19:00 96 09/10/24 18:40 95 09/10/24 16:50 98 09/10/24 15:29 96 09/10/24 14:03 94 L 09/10/24 12:26 94 L Intake and Output 09/10/24 09/11/24 09/11/24 22:59 06:59 14:59 Intake Total 310 310 Output Total 350 400 Balance 310 -40 -400 Intake: Blood Product 310 310 Rc As-1 Unit 0 310 [id number] Rc As-1 Unit 0 [id number] Rc As-1 Unit 310 [id number] Output: Urine 350 400 Other: Voiding Method Urinal Urinal Urinal # Voids 1 # Bowel Movements 1 Weight 76.204 kg 74 kg - Constitutional General appearance: average body habitus, no acute distress - EENT Eyes: anicteric sclerae, EOMI ENT: no hearing grossly normal - Respiratory breathing is even and unlabored - Cardiovascular skin warm and dry - Gastrointestinal General gastrointestinal: soft, no tenderness - Integumentary Integumentary: no cyanotic, no jaundiced, pale - Neurologic generalized weakness, left pronator drift. Strength equal bilaterally - Psychiatric A&O x 2 Results CBC & Chem 7: 09/11/24 12:02 09/11/24 06:23 Labs: Abnormal Lab Results - Last 24 Hours (Table) 09/10/24 09/10/24 09/10/24 Range/Units 14:10 14:10 14:10 RBC 1.59 L (4.40-5.60) 10*6/uL Hgb 5.6 L* (13.0-17.0) g/dL Hct 17.5 L* (39.6-50.0) % MCV 110.1 H (80.0-97.0) fL MCH 35.2 H (27.0-32.0) pg Immature Gran # (0.00-0.04) 10*3/uL PT 12.7 H (10.0-12.5) sec INR 1.2 H (<1.2) Carbon Dioxide 34 H (22-30) mmol/L BUN 24 H (9-20) mg/dL Glucose 164 H (74-99) mg/dL POC Glucose (mg/dL) (70-110) mg/dL Calcium (8.4-10.2) mg/dL Iron (65-175) UG/DL % Saturation (15.00-50.00) Total Protein 5.6 L (6.3-8.2) g/dL Albumin 2.9 L (3.5-5.0) g/dL Crossmatch 09/10/24 09/10/24 09/11/24 Range/Units 14:10 15:20 06:21 RBC (4.40-5.60) 10*6/uL Hgb (13.0-17.0) g/dL Hct (39.6-50.0) % MCV (80.0-97.0) fL MCH (27.0-32.0) pg Immature Gran # (0.00-0.04) 10*3/uL PT (10.0-12.5) sec INR (<1.2) Carbon Dioxide (22-30) mmol/L BUN (9-20) mg/dL Glucose (74-99) mg/dL POC Glucose (mg/dL) 152 H (70-110) mg/dL Calcium (8.4-10.2) mg/dL Iron 234 H (65-175) UG/DL % Saturation 78.79 H (15.00-50.00) Total Protein (6.3-8.2) g/dL Albumin (3.5-5.0) g/dL Crossmatch See Detail 09/11/24 09/11/24 Range/Units 06:23 06:33 RBC 2.20 L (4.40-5.60) 10*6/uL Hgb 7.2 L D (13.0-17.0) g/dL Hct 22.2 L (39.6-50.0) % MCV 100.9 H D (80.0-97.0) fL MCH 32.7 H (27.0-32.0) pg Immature Gran # 0.09 H (0.00-0.04) 10*3/uL PT (10.0-12.5) sec INR (<1.2) Carbon Dioxide 35 H (22-30) mmol/L BUN 23 H (9-20) mg/dL Glucose 120 H (74-99) mg/dL POC Glucose (mg/dL) (70-110) mg/dL Calcium 8.3 L (8.4-10.2) mg/dL Iron (65-175) UG/DL % Saturation (15.00-50.00) Total Protein (6.3-8.2) g/dL Albumin (3.5-5.0) g/dL Crossmatch Chest x-ray: report reviewed CT Scan - head: report reviewed Assessment and Plan (1) Anemia Current Visit: Yes Status: Acute Priority: High Code(s): D64.9 - ANEMIA, UNSPECIFIED SNOMED Code(s): 979495114 (2) Weakness Current Visit: Yes Status: Acute Priority: Medium Code(s): R53.1 - WEAKNESS SNOMED Code(s): 57922666 Plan: Macrocytic anemia: HPI quite limited due to confusion and hx of dementia. Upon review of ER note, per family patient has been having increased weakness and had nausea and vomiting with abdominal pain last week which then resolved. Patient denies history of anemia. Denies acute bleeding and melena. He is anticoagulated with Eliquis for a-fib, which has been held. Upon review of EMR, patient has had mild anemia in the 11-12 range since 2019, and is on oral iron. Last hemoglobin prior to admission was on 03/04/2024 which was 12.7. -Hemoglobin on admit was noted at 5.6, MCV 110.1.. Patient has been transfused 3 units PRBCs with repeat hemoglobin 7.2. WBC 5.0, platelets 176,000. Nutritional studies showed iron saturation 78.7%, ferritin 23.2, vitamin B-12 503. Folate pending. Hemolysis workup negative. Stool occult negative. Creatinine 1.24, GFR 53. BUN 24 -Will obtain paraproteinemia workup -Concern for underlying bone marrow process/MDS. Will await pending workup, but will need to discuss with family about possible bone marrow biopsy to further evaluate Left sided weakness: CT brain without contrast was negative for acute intracranial processes -Neurology following. Brain MRI ordered
[2024-09-12 04:44] LABS: Basophils # (A) 0.02 10*3/uL (0.00-0.10); Basophils % (A) 0.3 %; Eosinophils # (A) 0.15 10*3/uL (0.04-0.35); Eosinophils % (A) 2.5 %; HCT 26.9 % (39.6-50.0); Lymphocytes # (A) 1.35 10*3/uL (0.90-5.00); Lymphocytes % (A) 22.8 %; MCH 31.9 pg (27.0-32.0); MCHC 32.3 g/dL (32.0-37.0); MCV 98.5 fL (80.0-97.0); Mean Platelet Volume 9.8 fL (9.5-12.2); Monocytes # (A) 0.65 10*3/uL (0.20-1.00); Neutrophils % (A) 62.7 %; Platelet Count 143 10*3/uL (140-440); RBC 2.73 10*6/uL (4.40-5.60); RDW 23.1 % (11.5-14.5); WBC 5.91 10*3/uL (4.50-10.00)
[2024-09-12 04:48] LABS: HGB 8.7 g/dL (13.0-17.0)
[2024-09-12 04:57] LABS: African American GFR (CKD) 69 (>60 ml/min/1.73 sqM); Anion Gap 2 mmol/L; Blood Urea Nitrogen 19 mg/dL (9-20); Calcium 8.6 mg/dL (8.4-10.2); Carbon Dioxide 35 mmol/L (22-30); Chloride 101 mmol/L (98-107); Glucose 122 mg/dL (74-99); Magnesium 1.9 mg/dL (1.6-2.3); Non-African American GFR(CKD) 59 (>60 ml/min/1.73 sqM); Potassium 4.3 mmol/L (3.5-5.1); Sodium 138 mmol/L (137-145)
[2024-09-12 06:13] LABS: Glucose,Whole Blood 145 mg/dL (70-110)
[2024-09-12 09:21] LABS: HCT 28.8 % (39.6-50.0); HGB 9.4 g/dL (13.0-17.0); MCH 32.1 pg (27.0-32.0); MCHC 32.6 g/dL (32.0-37.0); MCV 98.3 fL (80.0-97.0); Mean Platelet Volume 10.1 fL (9.5-12.2); Platelet Count 157 10*3/uL (140-440); RBC 2.93 10*6/uL (4.40-5.60); RDW 22.8 % (11.5-14.5)
[2024-09-12 11:36] LABS: Glucose,Whole Blood 159 mg/dL (70-110)
--- NOTE | 2024-09-12 13:50 | P.PN ---
Subjective Progress Note Date: 09/12/24 Hospital Course: Patient is a 84-year-old male with diabetes, coronary artery disease, A-fib and is on Eliquis who presents with weakness. He has a history of dementia and his niece was able to provide history. Apparently, he had some nausea and vomiting with abdominal pain last week which then resolved. 3 days ago, she has noted that the patient has continued to be weak and he stated that his left side seem to be weaker than his right. Currently denying shortness of breath. He wears 2.5 L at home at baseline. No recent medication changes. He is denying chest pain, abdominal pain, black or bloody stools. History of anemia with baseline ~12.5. He is denying fevers, chills, dysuria. ER FINDINGS: Labs significant for RBC 1.5, hemoglobin 5.6, hematocrit 17.5, MCV 110, MCH 35.2, PT 12.7, INR 1.2, bicarb 34, BUN 24, glucose 164, troponin negative, proBNP 863, stool occult blood negative EKG independently interpreted showed sinus rhythm with occasional supraventricular premature complexes, heart rate of 66, QTc 431, no ST segment elevation or depression seen, no T-wave inversions seen. Chest x-ray done independently interpreted showed no acute cardiopulmonary process. CT head interpreted showed no acute intracranial process. Periventricular white matter hypodensity compatible with chronic white matter ischemic changes mild atrophy. Left mastoiditis possibly present. CT abdomen pelvis with findings of 2.8 cm rounded density measuring 54 Hounsfield units from the inferior right kidney may be complicated cyst or mass. Consider MRI for additional evaluation. Multiple large simple appearing cyst present bilaterally. Periumbilical fat-containing hernia. Subjective: Patient seen and examined at bedside. No acute events overnight., He feels better, was sitting at the edge of the bed Pertinent positives and negatives as discussed above, a complete review of sys tems was performed and all other systems are negative. Vitals: Signs Reviewed Physical Exam: General: nontoxic, no distress, appears at stated age, on 3 L nasal cannula Derm: warm, dry, intact Head: atraumatic, normocephalic, symmetric Eyes: EOMI, anicteric sclera Mouth: no lip lesion, mucus membranes moist Cardiovascular: S1 S2 reg, no murmur, rubs, or gallops Lungs: CTA bilateral, no rhonchi, no rales, no accessory muscle use Abdominal: soft, non-tender to palpataion, no appreciable organomegaly Extremities: no gross muscle atrophy, no edema, no contractures Neuro: Alert, Oriented, CNII-XII grossly intac, equal strength in bilateral upper extremities 4 out of 5 Psych: well appearing, appropriate affect Data Received Today: Pertinent Labs: Hemoglobin 9.4, RBC 2.93, normal WBC and platelet count, sodium and potassium normal bicarb 35, creatinine normal, blood glucose is controlled, TSH elevated 6.67 with normal T40.8, IgG IgA and IgM WNL. Assessment and Plan: Patient is a 84-year-old male with diabetes, coronary artery disease, A-fib and is on Eliquis who presents with weakness. #Severe macrocytic anemia, ddx leukemia vs sub/acute bleed #Generalized weakness CT brain reviewed as above S/p 3 units PRBC, Hgb improved as above CBC daily Hematology oncology ordered Free kappa and lambda, serum immunofixation, protein electrophoresis, methylmalonic acid-pending, Reviewed notes No acute source of bleed, stool occult blood negative, hemodynamically stable Methylmalonic acid, reticulocyte count pending, obtain blood smear Hold anticoagulation, blood thinners clinic PT/OT consult Hematology consulted, pending recommendations Neurology consulted, MRI brain ordered and pending Management discussed with RN #Right renal mass CT abdomen pelvis with 2.8 cm rounded density by right inferior pole Renal ultrasound reviewed as above, recommend outpatient follow-up #Acute on chronic respiratory failure, likely secondary to anemia #COPD, not in acute exacerbation #Metabolic alkalosis Afebrile, chest x-ray unremarkable Continue O2 supplementation nasal cannula Continue Spiriva inhaler On 3 L nasal cannula Monitor BMP #Type II diabetes mellitus Insulin SQ sliding scale Accu-Cheks ACHS Monitor for hypoglycemia Subclinical hypothyroidism -Repeat thyroid function in 6 weeks with PCP #Delirium #Dementia Frequent reorientation Begin Seroquel 12.5 mg nightly Chronic Medical Conditions: CAD: Lisinopril 40 mg PO QD, metoprolol 200 mg PO QD, Lipitor 80 mg PO HS A-fib: Cardizem 120 mg PO QD, hold Xarelto History of DVT: Xarelto as above History of PE: Xarelto as above Hypertension: Lisinopril 40 mg PO QD, metoprolol 200 mg PO QD Prostate disorder: Doxazosin 4 mg PO QD DVT ppx: Hold anticoagulation due to anemia, SCDs Code status: Full code F: PO E: Replete as needed N: Heart healthy diet A: Ambulatory with PT/OT consulted Anticipated discharge place: Pending clinical course Anticipated discharge time: Pending clinical course Objective - Vital Signs Vital signs: Vital Signs Temp 98 F 09/12/24 12:00 Pulse 68 09/12/24 12:00 Resp 18 09/12/24 12:00 BP 158/71 09/12/24 12:00 Pulse Ox 95 09/12/24 12:00 FiO2 Intake & Output 09/11/24 09/12/24 09/12/24 18:59 06:59 18:59 Intake Total 1750 550 360 Output Total 1000 950 325 Balance 750 -400 35 Weight 74.1 kg Intake: Oral 1440 240 360 Blood Product 310 310 Rc As-1 Unit 310 [id number] Rc Irr As1 Unit 310 [id number] Output: Urine 1000 950 325 Other: Voiding Method Urinal Urinal Urinal # Voids 1 # Bowel Movements 1 - Labs CBC & Chem 7: 09/12/24 08:22 09/12/24 04:20 Labs: Abnormal Lab Results - Last 24 Hours (Table) 09/10/24 09/11/24 09/11/24 Range/Units 15:20 06:33 16:47 RBC (4.40-5.60) 10*6/uL Hgb (13.0-17.0) g/dL Hct (39.6-50.0) % MCV (80.0-97.0) fL MCH (27.0-32.0) pg Retic Count 7.80 H (0.10-1.80) % Carbon Dioxide (22-30) mmol/L Glucose (74-99) mg/dL POC Glucose (mg/dL) 142 H (70-110) mg/dL TSH (0.465-4.680) mIU/L Crossmatch See Detail 09/11/24 09/11/24 09/12/24 Range/Units 20:00 23:32 04:20 RBC (4.40-5.60) 10*6/uL Hgb (13.0-17.0) g/dL Hct (39.6-50.0) % MCV (80.0-97.0) fL MCH (27.0-32.0) pg Retic Count (0.10-1.80) % Carbon Dioxide 35 H (22-30) mmol/L Glucose 122 H (74-99) mg/dL POC Glucose (mg/dL) 159 H (70-110) mg/dL TSH 6.670 H (0.465-4.680) mIU/L Crossmatch 09/12/24 09/12/24 09/12/24 Range/Units 04:20 06:11 08:22 RBC 2.73 L 2.93 L (4.40-5.60) 10*6/uL Hgb 8.7 L D 9.4 L (13.0-17.0) g/dL Hct 26.9 L 28.8 L (39.6-50.0) % MCV 98.5 H 98.3 H (80.0-97.0) fL MCH 32.1 H (27.0-32.0) pg Retic Count (0.10-1.80) % Carbon Dioxide (22-30) mmol/L Glucose (74-99) mg/dL POC Glucose (mg/dL) 145 H (70-110) mg/dL TSH (0.465-4.680) mIU/L Crossmatch 09/12/24 Range/Units 11:29 RBC (4.40-5.60) 10*6/uL Hgb (13.0-17.0) g/dL Hct (39.6-50.0) % MCV (80.0-97.0) fL MCH (27.0-32.0) pg Retic Count (0.10-1.80) % Carbon Dioxide (22-30) mmol/L Glucose (74-99) mg/dL POC Glucose (mg/dL) 159 H (70-110) mg/dL TSH (0.465-4.680) mIU/L Crossmatch
[2024-09-12 16:35] LABS: Glucose,Whole Blood 237 mg/dL (70-110)
[2024-09-12 20:39] LABS: Glucose,Whole Blood 132 mg/dL (70-110)
[2024-09-13 03:44] VITALS: RESP 18
[2024-09-13 06:04] LABS: Glucose,Whole Blood 195 mg/dL (70-110)
[2024-09-13 06:40] LABS: Basophils # (A) 0.01 10*3/uL (0.00-0.10); Basophils % (A) 0.2 %; Eosinophils # (A) 0.13 10*3/uL (0.04-0.35); Eosinophils % (A) 2.4 %; HCT 26.8 % (39.6-50.0); HGB 8.6 g/dL (13.0-17.0); Lymphocytes # (A) 1.13 10*3/uL (0.90-5.00); Lymphocytes % (A) 20.8 %; MCH 32.1 pg (27.0-32.0); MCHC 32.1 g/dL (32.0-37.0); Mean Platelet Volume 9.9 fL (9.5-12.2); Monocytes # (A) 0.71 10*3/uL (0.20-1.00); Monocytes % (A) 13.1 %; Neutrophils # (A) 3.42 10*3/uL (1.80-7.70); Neutrophils % (A) 62.8 %; Platelet Count 155 10*3/uL (140-440); RBC 2.68 10*6/uL (4.40-5.60); RDW 21.2 % (11.5-14.5); WBC 5.44 10*3/uL (4.50-10.00)
[2024-09-13 07:01] LABS: African American GFR (CKD) 74 (>60 ml/min/1.73 sqM); Anion Gap -1 mmol/L; Blood Urea Nitrogen 15 mg/dL (9-20); Calcium 8.7 mg/dL (8.4-10.2); Carbon Dioxide 37 mmol/L (22-30); Chloride 100 mmol/L (98-107); Glucose 149 mg/dL (74-99); Non-African American GFR(CKD) 64 (>60 ml/min/1.73 sqM); Sodium 136 mmol/L (137-145)
[2024-09-13 07:56] VITALS: TEMP 97.9
[2024-09-13 09:03] LABS: Protein, Total 5.2 g/dL (6.2-8.2)
[2024-09-13 10:31] LABS: Chol/HDL Ratio 2.26 Ratio; LDL Cholesterol,Calculated 18.3 mg/dL (0.0-131.0); VLDL Calculation 19.04 mg/dL (5.00-40.00)
[2024-09-13 11:17] VITALS: BP 155/79; PULSE 73
[2024-09-13 11:27] LABS: Glucose,Whole Blood 210 mg/dL (70-110)
[2024-09-13 13:43] LABS: Free Kappa Lt Chain Qnt, Serum 5.49 mg/dL (0.33-1.94); Free Lambda Lt Chain Qnt, Seru 4.78 mg/dL (0.57-2.63)
--- NOTE | 2024-09-13 14:01 | P.PN ---
Subjective Progress Note Date: 09/13/24 Hospital Course: Patient is a 84-year-old male with diabetes, coronary artery disease, A-fib and is on Eliquis who presents with weakness. He has a history of dementia and his niece was able to provide history. Apparently, he had some nausea and vomiting with abdominal pain last week which then resolved. 3 days ago, she has noted that the patient has continued to be weak and he stated that his left side seem to be weaker than his right. Currently denying shortness of breath. He wears 2.5 L at home at baseline. No recent medication changes. He is denying chest pain, abdominal pain, black or bloody stools. History of anemia with baseline ~12.5. He is denying fevers, chills, dysuria. ER FINDINGS: Labs significant for RBC 1.5, hemoglobin 5.6, hematocrit 17.5, MCV 110, MCH 35.2, PT 12.7, INR 1.2, bicarb 34, BUN 24, glucose 164, troponin negative, proBNP 863, stool occult blood negative EKG independently interpreted showed sinus rhythm with occasional supraventricular premature complexes, heart rate of 66, QTc 431, no ST segment elevation or depression seen, no T-wave inversions seen. Chest x-ray done independently interpreted showed no acute cardiopulmonary process. CT head interpreted showed no acute intracranial process. Periventricular white matter hypodensity compatible with chronic white matter ischemic changes mild atrophy. Left mastoiditis possibly present. CT abdomen pelvis with findings of 2.8 cm rounded density measuring 54 Hounsfield units from the inferior right kidney may be complicated cyst or mass. Consider MRI for additional evaluation. Multiple large simple appearing cyst present bilaterally. Periumbilical fat-containing hernia. Subjective: Patient seen and examined at bedside. No acute events overnight., Patient reports feeling better. Denies fever, chills, chest pain, shortness of breath, nausea or vomiting, belly pain, diarrhea. Pertinent positives and negatives as discussed above, a complete review of systems was performed and all other systems are negative. Vitals: Signs Reviewed Physical Exam: General: nontoxic, no distress, appears at stated age, on 3 L nasal cannula Derm: warm, dry, intact Head: atraumatic, normocephalic, symmetric Eyes: EOMI, anicteric sclera Mouth: no lip lesion, mucus membranes moist Cardiovascular: S1 S2 reg, no murmur, rubs, or gallops Lungs: CTA bilateral, no rhonchi, no rales, no accessory muscle use Abdominal: soft, non-tender to palpataion, no appreciable organomegaly Extremities: no gross muscle atrophy, no edema, no contractures Neuro: Alert, Oriented, CNII-XII grossly intac, equal strength in bilateral upper extremities 4 out of 5 Psych: well appearing, appropriate affect Data Received Today: Pertinent Labs: WBC 5.44, hemoglobin 8.6, hematocrit 26.8, platelet 155, sodium 136, potassium 4.0, BUN 15, creatinine 1.05, glucose 132-210 Assessment and Plan: Patient is a 84-year-old male with diabetes, coronary artery disease, A-fib and is on Eliquis who presents with weakness. #Severe macrocytic anemia, possibly due to hypothyroidism #. Right-sided weakness, concerned about acute stroke CT brain reviewed as above S/p 5 units PRBC, Hgb improved as above Monitor morning CBC Discussed with hematology, outpatient follow-up IgG, IgA and IgM within normal limits. Free kappa elevated at 5.49 and free lambda elevated at 4.78. No acute source of bleed, stool occult blood negative, hemodynamically stable Methylmalonic acid pending Hypoproliferation, low reticulocyte count and TSH of 6.67, free T4 0.8 Hold anticoagulation, blood thinners PT/OT consult Discussed with neurology, repeat CT head, if negative for any acute stroke, patient may be discharged Patient unable to get brain MRI due to unknown prosthesis #Right renal mass CT abdomen pelvis with 2.8 cm rounded density by right inferior pole Renal ultrasound reviewed as above, recommend outpatient follow-up #Acute on chronic respiratory failure, likely secondary to anemia #COPD, not in acute exacerbation #Metabolic alkalosis Afebrile, chest x-ray unremarkable Continue O2 supplementation nasal cannula Continue Spiriva inhaler On 2 L nasal cannula Monitor BMP #Type II diabetes mellitus Insulin SQ sliding scale Accu-Cheks ACHS Monitor for hypoglycemia #Subclinical hypothyroidism -Repeat thyroid function in 6 weeks with PCP TSH of 6.67 and free T4 0.8 #Delirium #Dementia Frequent reorientation Begin Seroquel 12.5 mg nightly as needed Chronic Medical Conditions: CAD: Lipitor 80 mg PO HS A-fib: Cardizem 120 mg PO QD, metoprolol 200 p.o. daily, hold Xarelto History of DVT: Xarelto as above History of PE: Xarelto as above Hypertension: Lisinopril 40 mg PO QD, metoprolol 200 mg PO QD Prostate disorder: Doxazosin 4 mg PO QD DVT ppx: Hold anticoagulation due to anemia, SCDs Code status: Full code F: PO E: Replete as needed N: Heart healthy diet A: Ambulatory with PT/OT consulted Anticipated discharge place: Pending clinical course Anticipated discharge time: Pending clinical course I have seen and evaluated the patient today. Discussed with the resident and agree with the residents finding and plan as documented in the resident's note. Changes highlighted in blue font. Objective - Vital Signs Vital signs: Vital Signs Temp 97.6 F 09/13/24 03:40 Pulse 60 09/13/24 03:40 Resp 18 09/13/24 03:40 BP 161/74 09/13/24 03:40 Pulse Ox 95 09/13/24 03:40 FiO2 Intake & Output 09/12/24 09/12/24 09/13/24 06:59 18:59 06:59 Intake Total 550 1320 590 Output Total 950 625 400 Balance -400 695 190 Weight 74.1 kg 74.2 kg Intake: IV 10 Invasive Line 1 10 Oral 240 1320 580 Blood Product 310 Rc As-1 Unit 310 [id number] Output: Urine 950 625 400 Other: Voiding Method Urinal Urinal Toilet # Voids 1 5 - Labs CBC & Chem 7: 09/13/24 05:35 09/13/24 05:35 Labs: Abnormal Lab Results - Last 24 Hours (Table) 09/12/24 09/12/24 09/12/24 Range/Units 08:22 11:29 16:33 RBC 2.93 L (4.40-5.60) 10*6/uL Hgb 9.4 L (13.0-17.0) g/dL Hct 28.8 L (39.6-50.0) % MCV 98.3 H (80.0-97.0) fL MCH 32.1 H (27.0-32.0) pg POC Glucose (mg/dL) 159 H 237 H (70-110) mg/dL 09/12/24 09/13/24 09/13/24 Range/Units 20:37 05:35 06:03 RBC 2.68 L (4.40-5.60) 10*6/uL Hgb 8.6 L (13.0-17.0) g/dL Hct 26.8 L (39.6-50.0) % MCV 100.0 H (80.0-97.0) fL MCH 32.1 H (27.0-32.0) pg POC Glucose (mg/dL) 132 H 195 H (70-110) mg/dL
--- NOTE | 2024-09-13 14:37 | P.PN ---
Subjective Progress Note Date: 09/13/24 Principal diagnosis: anemia In follow-up today patient remains pleasantly confused, he is sitting up at the side of the bed, he is on baseline O2 at 2-2 and half liters, he states that he felt pretty well yesterday, feels really good today. He is not aware of any bleeding. He plans on going home with his family. Objective - Vital Signs Vital signs: Vital Signs Temp 97.9 F 09/13/24 11:16 Pulse 73 09/13/24 11:16 Resp 18 09/13/24 11:16 BP 155/79 09/13/24 11:16 Pulse Ox 95 09/13/24 11:16 FiO2 Intake & Output 09/12/24 09/13/24 09/13/24 18:59 06:59 18:59 Intake Total 1320 590 720 Output Total 625 400 300 Balance 695 190 420 Weight 74.2 kg Intake: IV 10 Invasive Line 1 10 Oral 1320 580 720 Output: Urine 625 400 300 Other: Voiding Method Urinal Toilet Toilet # Voids 5 1 - Constitutional General appearance: Present: average body habitus, cooperative, no acute dist ress - EENT Eyes: Present: anicteric sclerae, EOMI ENT: Present: hearing grossly normal - Respiratory Details: resp unlabored at rest - Cardiovascular Details: skin warm and dry to touch - Peripheral edema leg Peripheral Edema: bilateral: None - Integumentary Integumentary: Present: pale - Neurologic Neurologic: Present: CNII-XII intact - Musculoskeletal Musculoskeletal: Present: strength equal bilaterally - Psychiatric Psychiatric: Present: A&O x's 3, appropriate affect - Labs CBC & Chem 7: 09/13/24 05:35 09/13/24 05:35 Labs: Abnormal Lab Results - Last 24 Hours (Table) 09/11/24 09/12/24 09/12/24 Range/Units 23:32 16:33 20:37 RBC (4.40-5.60) 10*6/uL Hgb (13.0-17.0) g/dL Hct (39.6-50.0) % MCV (80.0-97.0) fL MCH (27.0-32.0) pg Sodium (137-145) mmol/L Carbon Dioxide (22-30) mmol/L Glucose (74-99) mg/dL POC Glucose (mg/dL) 237 H 132 H (70-110) mg/dL Total Protein (PEP) 5.2 L (6.2-8.2) g/dL HDL Cholesterol (40.00-60.00) mg/dL 09/13/24 09/13/24 09/13/24 Range/Units 05:35 05:35 06:03 RBC 2.68 L (4.40-5.60) 10*6/uL Hgb 8.6 L (13.0-17.0) g/dL Hct 26.8 L (39.6-50.0) % MCV 100.0 H (80.0-97.0) fL MCH 32.1 H (27.0-32.0) pg Sodium 136 L (137-145) mmol/L Carbon Dioxide 37 H (22-30) mmol/L Glucose 149 H (74-99) mg/dL POC Glucose (mg/dL) 195 H (70-110) mg/dL Total Protein (PEP) (6.2-8.2) g/dL HDL Cholesterol 29.70 L (40.00-60.00) mg/dL 09/13/24 Range/Units 11:25 RBC (4.40-5.60) 10*6/uL Hgb (13.0-17.0) g/dL Hct (39.6-50.0) % MCV (80.0-97.0) fL MCH (27.0-32.0) pg Sodium (137-145) mmol/L Carbon Dioxide (22-30) mmol/L Glucose (74-99) mg/dL POC Glucose (mg/dL) 210 H (70-110) mg/dL Total Protein (PEP) (6.2-8.2) g/dL HDL Cholesterol (40.00-60.00) mg/dL Assessment and Plan (1) Weakness Current Visit: Yes Status: Acute Priority: High Code(s): R53.1 - WEAKNESS SNOMED Code(s): 44071277 (2) Anemia Current Visit: Yes Status: Acute Priority: High Code(s): D64.9 - ANEMIA, UNSPECIFIED SNOMED Code(s): 479775831 Plan: Weakness -Patient admitted with weakness, worsened because of nausea and vomiting. - Patient doing much better since admission, resolution of nausea and vomiting. States he has felt good since receiving transfusion. Iron deficient anemia - Patient is status post 4 units of PRBCs. - Oral iron supplement ordered every other day - Still pending protein electrophoresis and immunofixation. -Plan for follow-up with Hematology to recheck iron saturation, see if patient qualifies for parenteral iron - Patient continues on Eliquis for atrial fibrillation. Patient's niece at the bedside states that she is the service advocate contact and will get patient to inform appointments. Patient is okay from a Hematology standpoint to be discharged once he has been cleared by Attending and any other consulting Physicians Doctor attests: I performed a history and physical examination of this patient, developed impression and plan of care. Discussed with dictator. I agree with dictators note, documented as a scribe.
--- NOTE | 2024-09-13 14:54 | CT ---
EXAMINATION TYPE: CT brain wo con CT DLP: 1155.4 mGycm, Automated exposure control for dose reduction was used. DATE OF EXAM: 09/13/2024 2:46 PM COMPARISON: CT brain 09/10/2024 CLINICAL INDICATION:Male, 84 years old with history of stroke?, TECHNIQUE: Brain: Multiple axial CT images of the brain were obtained without IV contrast. . Coronal and sagitta l reformats reviewed. FINDINGS: Brain: Extra-axial spaces: No abnormal extra-axial fluid collections. Ventricular system: Dilatation in proportion to cerebral atrophy. Cerebral parenchyma: Cerebral atrophy. No acute intraparenchymal hemorrhage or mass effect. The high -white junction is well differentiated. Scattered hypoattenuating areas are seen within the periventr icular white matter. Remote lacunar injury within the left quach radiata. Cerebellum: Unremarkable. Mass effect: No evidence of midline shift. Intracranial vasculature: Atherosclerotic calcifications of the intracranial vessels. Soft tissues: Normal. Calvarium/osseous structures: No depressed skull fracture. Paranasal sinuses and mastoid air cells: Opacification of the left mastoid air cells again. Right mas toid air cells are clear. Minimal mucosal thickening of the inferior bilateral maxillary sinuses. Sma ll suggested mucous retention cyst within the left maxilla sinus. Remaining paranasal sinuses are caryl ar. Visualized orbits: Bilateral aphakia IMPRESSION: 1. No acute intracranial process. No significant change from prior exam. 2. 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 3. Redemonstration of left mastoid effusion. [facility], , 09/13/2024 2:52 PM
--- NOTE | 2024-09-13 15:38 | P.DS ---
Providers Date of admission: 09/10/24 18:03 Expected date of discharge: 09/13/24 Attending physician: Daphne Romo MD Consults: 09/10/24 18:00 Consult Physician Routine Consulting Provider: Satnam Pop Consult Reason/Comments: anemia Do you want consulting provider notified?: Yes 09/11/24 06:24 Consult Physician Routine Consulting Provider: Dilip Lopez Consult Reason/Comments: left sided weakness Do you want consulting provider notified?: Yes [facility] Course: Hospital course Patient is a 84-year-old male with diabetes, coronary artery disease, A-fib and is on Eliquis who presents with weakness. He has a history of dementia and his niece was able to provide history. Apparently, he had some nausea and vomiting with abdominal pain last week which then resolved. 3 days ago, she has noted that the patient has continued to be weak and he stated that his left side seem to be weaker than his right. Currently denying shortness of breath. He wears 2.5 L at home at baseline. No recent medication changes. He is denying chest pain, abdominal pain, black or bloody stools. History of anemia with baseline ~12.5. He is denying fevers, chills, dysuria. Labs significant for RBC 1.5, hemoglobin 5.6, hematocrit 17.5, MCV 110, MCH 35.2, PT 12.7, INR 1.2, bicarb 34, BUN 24, glucose 164, troponin negative, proBNP 863, stool occult blood negative. EKG independently interpreted showed sinus rhythm with occasional supraventricular premature complexes, heart rate of 66, QTc 431, no ST segment elevation or depression seen, no T-wave inversions seen. Chest x-ray done independently interpreted showed no acute cardiopulmonary process. CT head interpreted showed no acute intracranial process. Periventricular white matter hypodensity compatible with chronic white matter ischemic changes mild atrophy. Left mastoiditis possibly present. CT abdomen pelvis with findings of 2.8 cm rounded density measuring 54 Hounsfield units from the inferior right kidney may be complicated cyst or mass. Consider MRI for additional evaluation. Multiple large simple appearing cyst present bilaterally. Periumbilical fat-containing hernia. Patient underwent an ultrasound of kidney and bladder on 09/10/2024 which showed indeterminate hypoechoic lesion in the inferior pole of the right kidney measuring 2.9 cm. Recommend outpatient MRI with IV contrast for further evaluation. Multiple anechoic simple appearing right renal cysts measuring up to 10.6 cm. Left kidney not well visualized due to technical factors described above. CT brain without contrast on 09/13/2024 shows no acute intracranial process. No significant change from prior exam. Remote lacunar injury along with nonspecific white matter changes likely secondary to chronic microangiopathy. Redemonstration of left mastoid effusion. Patient did receive 5 units of packed red blood cells. IgG, IgA and IgM are within normal limits. Free kappa elevated at 5.49 and free lambda elevated at 4.78. TSH elevated 6.67 with normal free T4 0.8. Recommend to repeat thyroid function in 6 weeks after discharge with PCP. Patient is medically stable to be discharged on 09/13/2024. Patient will follow-up with his PCP in 1 to 2 days and hematology/oncology in 1 week after discharge. Physical exam GENERAL: This is a 84-year-old in no apparent distress at the time of examination. Pleasant and cooperative. HEENT: Head is atraumatic, normocephalic. Pupils are equal, round, and reactive to light. Sclerae anicteric. Conjunctivae are clear. Mucus membranes of the mouth are moist. Neck is supple. RESPIRATORY: Clear to auscultation. No wheezes, rales, or rhonchi. No use of accessory muscles. Patient maintaining oxygen saturation greater than 92%. No c hest wall tenderness is noted on palpation or with deep breathing. CARDIOVASCULAR: Regular rate and rhythm. S1 and S2 noted. No systolic or diastolic murmur auscultated. No JVD noted. No S3 or S4 noted. GASTROINTESTINAL: No distention noted. Abdomen soft and round. No pain or tenderness noted upon palpation. INTEGUMENTARY: No cyanosis. No jaundice. No rashes noted. No cellulitis noted. EXTREMITIES: 2+ peripheral pulses. No evidence of peripheral edema. No calf tenderness noted. NEUROLOGIC: Cranial nerves II-XII intact. PSYCHIATRIC: Awake, alert, and oriented X 3. Appropriate affect. Intact judgement and insight. Discharge diagnosis Macrocytic anemia Right-sided weakness Right renal mass Acute on chronic respiratory failure, likely secondary to anemia COPD, not in acute exacerbation Metabolic alkalosis Type 2 diabetes mellitus Subclinical hypothyroidism Delirium Dementia A total of 38 minutes of time were spent preparing this complex discharge summary. Patient was discharged on 09/13/2024 at 1521. I have seen and evaluated the patient today. Discussed with the resident and agree with the residents finding and plan as documented in the resident's note. Changes highlighted in blue font. Patient Condition at Discharge: Stable Plan - Discharge Summary Discharge Rx Participant: No New Discharge Prescriptions: New Rivaroxaban [Xarelto] 20 mg PO DAILY #1 tab Continue Atorvastatin Calcium [Lipitor] 80 mg PO HS Tiotropium 2.5 Mcg/Puff [Spiriva Respimat 2.5 Mcg] 2 puff INHALATION RT-DAILY Metoprolol Succinate [Toprol XL] 200 mg PO DAILY Doxazosin [Cardura] 4 mg PO DAILY Nitroglycerin Sl Tabs [Nitrostat] 0.4 mg SUBLINGUAL Q5M PRN PRN Reason: Chest Pain Melatonin 3 mg PO HS PRN PRN Reason: Insomnia Ferrous Sulfate [Iron (65 MG Elemental)] 325 mg PO Q2D lisinopriL 40 mg PO DAILY Docusate [Colace] 100 mg PO BID PRN PRN Reason: Constipation Albuterol Sulfate [Albuterol Sulfate Hfa] 2 puff INHALATION RT-QID PRN PRN Reason: Shortness Of Breath Diltiazem Cd [Cardizem CD] 120 mg PO DAILY #60 cap Furosemide [Lasix] 20 mg PO DAILY Albuterol Nebulized [Ventolin Nebulized] 2.5 mg INHALATION RT-QID PRN PRN Reason: Shortness Of Breath Glucerna Shake 1 can PO BID PRN PRN Reason: SUPPLEMENT Discontinued Rivaroxaban [Xarelto] 20 mg PO DAILY Discharge Medication List Ferrous Sulfate [Iron (65 MG Elemental)] 325 mg PO Q2D 11/17/23 [History] Melatonin 3 mg PO HS PRN 11/17/23 [History] Nitroglycerin Sl Tabs [Nitrostat] 0.4 mg SUBLINGUAL Q5M PRN 11/17/23 [History] Albuterol Sulfate [Albuterol Sulfate Hfa] 2 puff INHALATION RT-QID PRN 11/18/23 [History] Atorvastatin Calcium [Lipitor] 80 mg PO HS 11/18/23 [History] Docusate [Colace] 100 mg PO BID PRN 11/18/23 [History] Metoprolol Succinate [Toprol XL] 200 mg PO DAILY 11/18/23 [History] Tiotropium 2.5 Mcg/Puff [Spiriva Respimat 2.5 Mcg] 2 puff INHALATION RT-DAILY 11/18/23 [History] lisinopriL 40 mg PO DAILY 11/18/23 [History] Diltiazem Cd [Cardizem CD] 120 mg PO DAILY #60 cap 11/21/23 [Rx] Doxazosin [Cardura] 4 mg PO DAILY 03/03/24 [History] Furosemide [Lasix] 20 mg PO DAILY 03/03/24 [History] Albuterol Nebulized [Ventolin Nebulized] 2.5 mg INHALATION RT-QID PRN 09/10/24 [History] Glucerna Shake 1 can PO BID PRN 09/10/24 [History] Rivaroxaban [Xarelto] 20 mg PO DAILY #1 tab 09/13/24 [Rx] Follow up Appointment(s)/Referral(s): Satnam Pop [STAFF PHYSICIAN] - 10/05/24 2:00 pm Omar Hobson DO [Primary Care Provider] - 1-2 days (nurse left message with [facility] to call back) Patient Instructions/Handouts: Anemia (DC) Activity/Diet/Wound Care/Special Instructions: If you notice any urinary or bowel bleeding, please stop xarelto right away and talk to your PCP. Please see hematology. Discharge/Stand Alone Forms: Who Do I Call?, Adult Foster Senior Living List, Assisted Living Facilities, Help In The Home Discharge Disposition: HOME SELF-CARE
--- NOTE | 2024-09-13 19:13 | P.PN ---
Progress Note - Text Progress Note Date: 09/13/24 Patient was seen by Dr. Guerrero. She has signed out to check on MRI. Patient cannot have MRI because presence of some lens implant, which could not get MRI clearance. Recommended repeat CT head, and if negative, would be clear for discharge. Patient is on Xarelto.
[2024-09-14 14:52] LABS: Albumin 2.66 g/dL (3.80-4.90); Gamma Globulin 1.02 g/dL (0.70-1.50)
== END 2024-09-13 16:30 | disposition home or self-care (01) | DRG 811 ==
LOC: EC 12:11 → 3SCARD 18:03
PROVIDERS: ADMIT Student in an Organized Health Care Education/Training Program; ATTEND Student in an Organized Health Care Education/Training Program
PROC: 30233N1 Transfusion of Nonautologous Red Blood Cells into Peripheral Vein, Percutaneous Approach (ICD-10-PCS; principal; 2024-09-10)
DX: D53.9 Nutritional anemia, unspecified (principal); J96.20 Acute and chronic respiratory failure, unspecified whether with hypoxia or hypercapnia; E87.3 Alkalosis; H70.92 Unspecified mastoiditis, left ear; E11.9 Type 2 diabetes mellitus without complications; F03.90 Unspecified dementia, unspecified severity, without behavioral disturbance, psychotic disturbance, mood disturbance, and anxiety; J44.9 Chronic obstructive pulmonary disease, unspecified; E03.8 Other specified hypothyroidism; I10 Essential (primary) hypertension; D50.9 Iron deficiency anemia, unspecified; I48.91 Unspecified atrial fibrillation; I25.10 Atherosclerotic heart disease of native coronary artery without angina pectoris; K42.9 Umbilical hernia without obstruction or gangrene; R53.1 Weakness; N28.89 Other specified disorders of kidney and ureter; F17.200 Nicotine dependence, unspecified, uncomplicated; E78.5 Hyperlipidemia, unspecified; N42.9 Disorder of prostate, unspecified; N28.1 Cyst of kidney, acquired; Z87.442 Personal history of urinary calculi; Z79.01 Long term (current) use of anticoagulants; Z88.0 Allergy status to penicillin; Z79.899 Other long term (current) drug therapy; Z88.8 Allergy status to other drugs, medicaments and biological substances; Z86.718 Personal history of other venous thrombosis and embolism; Z86.711 Personal history of pulmonary embolism
CPT/HCPCS: 36415; 36430; 70450; 71046; 74177; 76770; 80048; 80053; 80061; 81003; 82140; 82272; 82607; 82728; 82747; 82784; 83010; 83036; 83540; 83550; 83605; 83615; 83735; 83880; 83883; 83921; 84165; 84439; 84443; 84484; 85025; 85027; 85045; 85610; 85730; 86334; 86850; 86900; 86901; 86920; 93005; 94640; 94760; 96374; 99285